=== PATIENT | male | born 1935 | race Caucasian/White ===

== ENCOUNTER → 2017-03-10 | Outpatient (REF) | payer MEDICARE ==
[~2017-03-10] MED LIST: /PANT40TA; /TAMS4CA; /WARF25TA; /WARF3TA; /WARF4TA; ACET65TA; ACTO45TA; ALOP5TAB; AMBI5TAB; ASPI81TA85; ATEN25TA; BISA10SU2; BISA5TA; CALC12502; COLA100C2; CORE6.25 PO; COUM1TAB; COUM2.5T17 PO; COUMADIN; DARB60SYR; DIGO0.126; DIGO0.257; FERR324T5; FERR325T; FISH13602; FLEC50TA2; GLUC1000; GLUC1000 PO; GLUC500T; HEPA100I16 IV; INSULANT; LEVAMIR; LEVE1INJ5 SC; LISI-538 PO; LISI20TA5; MAALSUS8 PO; META0.52 PO; METAMUCIL; MILKSUS; MIRA3350 PO; MIRALEX; MULTIVIT; NAFC2VLAD IV; NAFCILLIN; NEXI20CA; NOVOINJ3; NOVOLOG100 MG/ML; NUCY50TA6 PO; OMEGA 3; PRESCAP PO; PRIN10TA; PROS5TAB; RIFA300C3; RIFA300C3 PO; SALI0.9I2 IV; SENN8.6T14; SENO8.6T5; SIMV20TA2 PO; SODIUM CHLORIDE 0.9%; STARLIX; TENO25TA; THERGRAN; TIGA100I; TRAM50TA2; TUMS500C PO; TYLE650T30 PO; ULTR100T6 PO; ULTR200T; ULTR50TA8 PO; VICO5TAB; WARFARIN; XARE10TA PO; ZOCO20TA; ZOFR20TA PO; [UNRECOGNIZED DRUG - OTHER]; [UNRECOGNIZED DRUG - OTHER]; [UNRECOGNIZED DRUG - OTHER]; levemir; metamucil; mylanta; mylicon; omega; starlix; vancomycin hcl
== END ==
LOC: M SFHCLERA 11:49
PROVIDERS: ATTEND Dermatology
DX: C44.599 Other specified malignant neoplasm of skin of other part of trunk (principal); D23.5 Other benign neoplasm of skin of trunk; L57.0 Actinic keratosis
CPT/HCPCS: 11100; 11101; 88305; G0463

== ENCOUNTER → 2017-04-07 | Outpatient (REF) | payer MEDICARE | LOC: M SFHCLERA 11:39 | PROVIDERS: ATTEND Dermatology | DX: D23.61 Other benign neoplasm of skin of right upper limb, including shoulder (principal) ==

== ENCOUNTER → 2018-02-07 | Outpatient (REF) | payer MEDICARE | LOC: M SFHCLERA 10:39 | DX: C44.329 Squamous cell carcinoma of skin of other parts of face (principal); C44.529 Squamous cell carcinoma of skin of other part of trunk; C44.622 Squamous cell carcinoma of skin of right upper limb, including shoulder; D48.7 Neoplasm of uncertain behavior of other specified sites | CPT/HCPCS: 88305 ==

== ENCOUNTER 2018-05-05 16:02 | Inpatient (IN) | payer MEDICARE ==
[~2018-05-05 16:02] MED LIST changes: -/PANT40TA; -/TAMS4CA; -/WARF25TA; -/WARF3TA; -/WARF4TA; -ACET65TA; -ACTO45TA; -ALOP5TAB; -AMBI5TAB; -ASPI81TA85; -ATEN25TA; -BISA10SU2; -BISA5TA; -CALC12502; -COLA100C2; -CORE6.25 PO; -COUM1TAB; -COUM2.5T17 PO; -COUMADIN; -DARB60SYR; +DEXTROSE 50% 50 ML SYRINGE IV; -DIGO0.126; -DIGO0.257; -FERR324T5; -FERR325T; -FISH13602; -FLEC50TA2; -GLUC1000; -GLUC1000 PO; -GLUC500T; +GLUCAGON FOR INJ 1 MG VIAL (J1610) SC; +GLUCOSE 4 GM CHEW TABLET PO; -HEPA100I16 IV; -INSULANT; -LEVAMIR; -LEVE1INJ5 SC; -LISI-538 PO; -LISI20TA5; -MAALSUS8 PO; -META0.52 PO; -METAMUCIL; -MILKSUS; -MIRA3350 PO; -MIRALEX; -MULTIVIT; -NAFC2VLAD IV; -NAFCILLIN; -NEXI20CA; -NOVOINJ3; -NOVOLOG100 MG/ML; -NUCY50TA6 PO; -OMEGA 3; -PRESCAP PO; -PRIN10TA; -PROS5TAB; -RIFA300C3; -RIFA300C3 PO; -SALI0.9I2 IV; -SENN8.6T14; -SENO8.6T5; -SIMV20TA2 PO; -SODIUM CHLORIDE 0.9%; -STARLIX; -TENO25TA; -THERGRAN; -TIGA100I; -TRAM50TA2; -TUMS500C PO; -TYLE650T30 PO; -ULTR100T6 PO; -ULTR200T; -ULTR50TA8 PO; -VICO5TAB; -WARFARIN; -XARE10TA PO; -ZOCO20TA; -ZOFR20TA PO; -[UNRECOGNIZED DRUG - OTHER]; -[UNRECOGNIZED DRUG - OTHER]; -[UNRECOGNIZED DRUG - OTHER]; -levemir; -metamucil; -mylanta; -mylicon; -omega; -starlix; +traMADol 50 MG TAB PO; -vancomycin hcl
[2018-05-05] MEDS ORDERED: SIMETHICONE 80 MG CHEW TAB PO (16:15)
[2018-05-05] MEDS ORDERED: ONDANSETRON 4 MG TAB (S0181) PO (16:15)
[2018-05-05] MEDS ORDERED: MOM 30ML SUSPENSION UDC PO (16:15)
[2018-05-05] MEDS ORDERED: ONDANSETRON 4MG/2ML VIAL (J2405) IM (16:15)
[2018-05-05] MEDS ORDERED: BISACODYL 10 MG SUPP PR (16:15)
[2018-05-05] MEDS ORDERED: FLEET ENEMA PR (16:15)
[2018-05-05] MEDS ORDERED: BISACODYL 5 MG TAB PO (16:15)
[2018-05-05 16:59] LABS: BEDSIDE GLUCOSE 200 MG/DL (83-110)
[2018-05-05] MEDS: HumaLOG INSULIN (NovoLOG) PER UNIT SC ×2 (17:18→21:45)
[2018-05-05] MEDS ORDERED: PILL CRUSHER/CUTTER 1 EACH XX (18:00)
[2018-05-05] MEDS: NS 1,000 ML IV (18:10)
[2018-05-05 20:41] LABS: BEDSIDE GLUCOSE 240 MG/DL (83-110)
[2018-05-05] MEDS ORDERED: metFORMIN (GLUCOPHAGE) 1000 MG TABLET PO (21:00)
[2018-05-05] MEDS ORDERED: LEVEMIR (INSULIN DETEMIR) 1 UNITS/0.01ML SC (21:00)
[2018-05-05] MEDS ORDERED: LISINOPRIL 20 MG TAB PO (21:00)
[2018-05-05] MEDS: ATORVASTATIN 10 MG TAB PO (21:41)
[2018-05-05] MEDS: ACETAMINOPHEN 650MG ER TAB (TYLENOL ARTHRITIS) PO (21:41)
[2018-05-05] MEDS: APIXABAN 5 MG TAB (ELIQUIS) PO (21:42)
[2018-05-05] MEDS: OCUVITE 1 TAB PO (21:42)
[2018-05-05] MEDS: SENNA 8.6 MG TAB (SENOKOT) PO (21:42)
[2018-05-05] MEDS: POTASSIUM CHLORIDE 10 MEQ SR TABLET PO (21:43)
[2018-05-05] MEDS: LEVEMIR (INSULIN DETEMIR) 1 UNITS/0.01ML SC (21:44)
[2018-05-05] MEDS: CARVedilol 3.125 MG TAB PO (21:45)
[2018-05-05] MEDS: LISINOPRIL 10 MG TAB PO (21:45)
[2018-05-06] MEDS: ACETAMINOPHEN 650MG ER TAB (TYLENOL ARTHRITIS) PO ×3 (06:09→21:17)
[2018-05-06 06:45] LABS: BEDSIDE GLUCOSE 168 MG/DL (83-110)
[2018-05-06 07:30] LABS: BASO % 0.4 % (0.0-1.0); EOS # 0.4 10^3/uL (0.0-0.50); EOS % 3.5 % (0.0-3.0); HEMATOCRIT 44.5 % (42.0-52.0); HEMOGLOBIN 15.5 g/dl (13.5-17.5); IMMATURE GRANULOCYTE % 0.4 % (0-3.0); LYMPH # 1.1 10^3/uL (1.5-4.5); LYMPH % 10.4 % (24.0-44.0); MEAN CORPUSCULAR HGB CONC 34.8 g/dl (32.0-36.5); MEAN CORPUSCULAR VOLUME 86.2 fl (80.0-96.0); MONO # 0.8 10^3/uL (0.0-0.8); MONO % 7.5 % (0.0-5.0); NEUTROPHILS # 8.5 10^3/uL (1.8-7.7); NEUTROPHILS % 77.8 % (36.0-66.0); PLATELET COUNT, AUTOMATED 155 10^3/uL (150-450); RED BLOOD COUNT 5.16 10^6/uL (4.30-6.10); RED CELL DISTRIBUTION WIDTH 14.4 % (11.5-14.5); WHITE BLOOD COUNT 10.9 10^3/uL (4.0-10.0)
[2018-05-06] MEDS: HumaLOG INSULIN (NovoLOG) PER UNIT SC ×4 (07:30→21:00)
[2018-05-06 07:53] LABS: ESTIMATED AVERAGE GLUCOSE 169 MG/DL (60-110); HEMOGLOBIN A1c 7.5 %
[2018-05-06 07:57] LABS: ALBUMIN 2.6 GM/DL (3.2-5.2); ALBUMIN/GLOBULIN RATIO 0.63 (1.00-1.93); ALKALINE PHOSPHATASE 56 U/L (45-117); ALT/SGPT 18 U/L (12-78); ANION GAP 9 MEQ/L (8-16); AST/SGOT 14 U/L (7-37); BILIRUBIN,TOTAL 0.8 MG/DL (0.2-1.0); BLOOD UREA NITROGEN 10 MG/DL (7-18); CALCIUM LEVEL 8.3 MG/DL (8.8-10.2); CARBON DIOXIDE LEVEL 25 MEQ/L (21-32); CHLORIDE LEVEL 107 MEQ/L (98-107); CREATININE FOR GFR 0.78 MG/DL (0.70-1.30); GLOMERULAR FILTRATION RATE > 60.0 (>35); GLUCOSE, FASTING 160 MG/DL (70-100); POTASSIUM SERUM 3.5 MEQ/L (3.5-5.1); SODIUM LEVEL 141 MEQ/L (136-145); TOTAL PROTEIN 6.7 GM/DL (6.4-8.2)
[2018-05-06] MEDS: MIRALAX *UNIT DOSE* 17GM PACKET PO (08:26)
[2018-05-06] MEDS: OCUVITE 1 TAB PO ×2 (08:26→21:17)
[2018-05-06] MEDS: metFORMIN (GLUCOPHAGE) 500 MG TAB PO ×2 (08:27→18:39)
[2018-05-06] MEDS: POTASSIUM CHLORIDE 10 MEQ SR TABLET PO (08:28)
[2018-05-06] MEDS: APIXABAN 5 MG TAB (ELIQUIS) PO ×2 (08:28→21:18)
[2018-05-06] MEDS: CARVedilol 3.125 MG TAB PO ×2 (08:41→21:18)
[2018-05-06] MEDS: LISINOPRIL 10 MG TAB PO ×2 (08:42→21:18)
[2018-05-06] MEDS ORDERED: INDAPAMIDE 1.25MG TABLET PO (09:00)
[2018-05-06 12:14] LABS: BEDSIDE GLUCOSE 266 MG/DL (83-110)
[2018-05-06] MEDS: FLUoxetine 20 MG CAP PO (14:25)
[2018-05-06] MEDS: NS 1,000 ML IV (14:25)
[2018-05-06 16:56] LABS: BEDSIDE GLUCOSE 227 MG/DL (83-110)
[2018-05-06 21:08] LABS: BEDSIDE GLUCOSE 218 MG/DL (83-110)
[2018-05-06] MEDS: LEVEMIR (INSULIN DETEMIR) 1 UNITS/0.01ML SC (21:17)
[2018-05-06] MEDS: POTASSIUM CHL PWD 20 MEQ PACKET PO (21:17)
[2018-05-06] MEDS: ATORVASTATIN 10 MG TAB PO (21:18)
[2018-05-06] MEDS: SENNA 8.6 MG TAB (SENOKOT) PO (21:18)
[2018-05-07] MEDS: ACETAMINOPHEN 650MG ER TAB (TYLENOL ARTHRITIS) PO ×3 (05:57→21:20)
[2018-05-07 07:13] LABS: BASO % 0.4 % (0.0-1.0); EOS # 0.4 10^3/uL (0.0-0.50); EOS % 3.7 % (0.0-3.0); HEMATOCRIT 44.9 % (42.0-52.0); HEMOGLOBIN 15.7 g/dl (13.5-17.5); IMMATURE GRANULOCYTE % 0.3 % (0-3.0); LYMPH # 1.2 10^3/uL (1.5-4.5); LYMPH % 12.1 % (24.0-44.0); MEAN CORPUSCULAR HEMOGLOBIN 30.3 pg (27.0-33.0); MEAN CORPUSCULAR VOLUME 86.7 fl (80.0-96.0); MONO # 0.8 10^3/uL (0.0-0.8); MONO % 7.8 % (0.0-5.0); NEUTROPHILS # 7.8 10^3/uL (1.8-7.7); NEUTROPHILS % 75.7 % (36.0-66.0); PLATELET COUNT, AUTOMATED 169 10^3/uL (150-450); RED BLOOD COUNT 5.18 10^6/uL (4.30-6.10); RED CELL DISTRIBUTION WIDTH 14.6 % (11.5-14.5); WHITE BLOOD COUNT 10.3 10^3/uL (4.0-10.0)
[2018-05-07] MEDS: HumaLOG INSULIN (NovoLOG) PER UNIT SC ×4 (07:30→21:00)
[2018-05-07 07:45] LABS: ANION GAP 7 MEQ/L (8-16); BLOOD UREA NITROGEN 13 MG/DL (7-18); CALCIUM LEVEL 8.2 MG/DL (8.8-10.2); CARBON DIOXIDE LEVEL 26 MEQ/L (21-32); CHLORIDE LEVEL 107 MEQ/L (98-107); CREATININE FOR GFR 0.77 MG/DL (0.70-1.30); GLOMERULAR FILTRATION RATE > 60.0 (>35); GLUCOSE, FASTING 126 MG/DL (70-100); POTASSIUM SERUM 3.6 MEQ/L (3.5-5.1); SODIUM LEVEL 140 MEQ/L (136-145)
[2018-05-07] MEDS: MIRALAX *UNIT DOSE* 17GM PACKET PO (09:00)
[2018-05-07] MEDS: POTASSIUM CHL PWD 20 MEQ PACKET PO ×2 (09:13→21:19)
[2018-05-07] MEDS: APIXABAN 5 MG TAB (ELIQUIS) PO ×2 (09:13→21:20)
[2018-05-07] MEDS: FLUoxetine 20 MG CAP PO (09:13)
[2018-05-07] MEDS: OCUVITE 1 TAB PO ×2 (09:13→21:20)
[2018-05-07] MEDS: metFORMIN (GLUCOPHAGE) 500 MG TAB PO ×2 (09:14→17:39)
[2018-05-07] MEDS: CARVedilol 3.125 MG TAB PO ×2 (09:14→21:20)
[2018-05-07] MEDS: LISINOPRIL 10 MG TAB PO ×2 (09:14→21:20)
[2018-05-07] MEDS: GLIMEPIRIDE 2 MG TAB PO (09:15)
[2018-05-07 11:53] LABS: BEDSIDE GLUCOSE 211 MG/DL (83-110)
[2018-05-07 16:52] LABS: BEDSIDE GLUCOSE 124 MG/DL (83-110)
[2018-05-07 20:53] LABS: BEDSIDE GLUCOSE 129 MG/DL (83-110)
[2018-05-07] MEDS: SENNA 8.6 MG TAB (SENOKOT) PO (21:20)
[2018-05-07] MEDS: ATORVASTATIN 10 MG TAB PO (21:20)
[2018-05-08] MEDS: ACETAMINOPHEN 650MG ER TAB (TYLENOL ARTHRITIS) PO ×3 (05:49→20:47)
[2018-05-08 06:08] LABS: BEDSIDE GLUCOSE 213 MG/DL (83-110)
[2018-05-08 07:14] LABS: BASO % 0.4 % (0.0-1.0); EOS # 0.4 10^3/uL (0.0-0.50); EOS % 3.9 % (0.0-3.0); HEMATOCRIT 47.9 % (42.0-52.0); HEMOGLOBIN 16.6 g/dl (13.5-17.5); IMMATURE GRANULOCYTE % 0.3 % (0-3.0); LYMPH # 1.4 10^3/uL (1.5-4.5); LYMPH % 13.8 % (24.0-44.0); MEAN CORPUSCULAR HEMOGLOBIN 30.4 pg (27.0-33.0); MEAN CORPUSCULAR HGB CONC 34.7 g/dl (32.0-36.5); MEAN CORPUSCULAR VOLUME 87.7 fl (80.0-96.0); MONO # 0.8 10^3/uL (0.0-0.8); NEUTROPHILS # 7.3 10^3/uL (1.8-7.7); NEUTROPHILS % 73.6 % (36.0-66.0); PLATELET COUNT, AUTOMATED 179 10^3/uL (150-450); RED BLOOD COUNT 5.46 10^6/uL (4.30-6.10); RED CELL DISTRIBUTION WIDTH 14.4 % (11.5-14.5); WHITE BLOOD COUNT 9.9 10^3/uL (4.0-10.0)
[2018-05-08 07:28] LABS: ANION GAP 9 MEQ/L (8-16); BLOOD UREA NITROGEN 15 MG/DL (7-18); CALCIUM LEVEL 8.7 MG/DL (8.8-10.2); CARBON DIOXIDE LEVEL 26 MEQ/L (21-32); CHLORIDE LEVEL 103 MEQ/L (98-107); CREATININE FOR GFR 0.84 MG/DL (0.70-1.30); GLOMERULAR FILTRATION RATE > 60.0 (>35); GLUCOSE, FASTING 188 MG/DL (70-100); POTASSIUM SERUM 3.8 MEQ/L (3.5-5.1); SODIUM LEVEL 138 MEQ/L (136-145)
[2018-05-08] MEDS: POTASSIUM CHL PWD 20 MEQ PACKET PO ×2 (09:00→20:46)
[2018-05-08] MEDS: MIRALAX *UNIT DOSE* 17GM PACKET PO (09:00)
[2018-05-08] MEDS: HumaLOG INSULIN (NovoLOG) PER UNIT SC ×4 (09:14→20:43)
[2018-05-08] MEDS: OCUVITE 1 TAB PO ×2 (09:15→20:46)
[2018-05-08] MEDS: CARVedilol 3.125 MG TAB PO ×2 (09:15→20:48)
[2018-05-08] MEDS: GLIMEPIRIDE 2 MG TAB PO (09:15)
[2018-05-08] MEDS: metFORMIN (GLUCOPHAGE) 500 MG TAB PO ×2 (09:15→18:05)
[2018-05-08] MEDS: LISINOPRIL 10 MG TAB PO ×2 (09:16→20:47)
[2018-05-08] MEDS: APIXABAN 5 MG TAB (ELIQUIS) PO ×2 (09:16→20:46)
[2018-05-08] MEDS: FLUoxetine 20 MG CAP PO (09:16)
[2018-05-08 11:26] LABS: BEDSIDE GLUCOSE 311 MG/DL (83-110)
[2018-05-08 16:42] LABS: BEDSIDE GLUCOSE 171 MG/DL (83-110)
[2018-05-08 20:23] LABS: BEDSIDE GLUCOSE 197 MG/DL (83-110)
[2018-05-08] MEDS: SENNA 8.6 MG TAB (SENOKOT) PO (20:42)
[2018-05-08] MEDS: ATORVASTATIN 10 MG TAB PO (20:46)
[2018-05-09] MEDS: ACETAMINOPHEN 650MG ER TAB (TYLENOL ARTHRITIS) PO ×3 (06:55→21:21)
[2018-05-09 07:01] LABS: BASO % 0.4 % (0.0-1.0); EOS # 0.4 10^3/uL (0.0-0.50); EOS % 3.4 % (0.0-3.0); HEMATOCRIT 49.1 % (42.0-52.0); HEMOGLOBIN 16.9 g/dl (13.5-17.5); IMMATURE GRANULOCYTE % 0.6 % (0-3.0); LYMPH # 1.3 10^3/uL (1.5-4.5); LYMPH % 12.1 % (24.0-44.0); MEAN CORPUSCULAR HEMOGLOBIN 30.1 pg (27.0-33.0); MEAN CORPUSCULAR HGB CONC 34.4 g/dl (32.0-36.5); MEAN CORPUSCULAR VOLUME 87.4 fl (80.0-96.0); MONO # 0.9 10^3/uL (0.0-0.8); MONO % 8.2 % (0.0-5.0); NEUTROPHILS # 8.2 10^3/uL (1.8-7.7); NEUTROPHILS % 75.3 % (36.0-66.0); PLATELET COUNT, AUTOMATED 191 10^3/uL (150-450); RED BLOOD COUNT 5.62 10^6/uL (4.30-6.10); WHITE BLOOD COUNT 10.8 10^3/uL (4.0-10.0)
[2018-05-09 07:14] LABS: ANION GAP 5 MEQ/L (8-16); BLOOD UREA NITROGEN 14 MG/DL (7-18); CALCIUM LEVEL 8.8 MG/DL (8.8-10.2); CARBON DIOXIDE LEVEL 29 MEQ/L (21-32); CHLORIDE LEVEL 101 MEQ/L (98-107); CREATININE FOR GFR 0.83 MG/DL (0.70-1.30); GLOMERULAR FILTRATION RATE > 60.0 (>35); GLUCOSE, FASTING 185 MG/DL (70-100); POTASSIUM SERUM 3.8 MEQ/L (3.5-5.1); SODIUM LEVEL 135 MEQ/L (136-145)
[2018-05-09] MEDS: POTASSIUM CHL PWD 20 MEQ PACKET PO ×2 (08:06→21:21)
[2018-05-09] MEDS: GLIMEPIRIDE 2 MG TAB PO (08:07)
[2018-05-09] MEDS: APIXABAN 5 MG TAB (ELIQUIS) PO ×2 (08:07→21:21)
[2018-05-09] MEDS: CARVedilol 3.125 MG TAB PO ×2 (08:07→21:22)
[2018-05-09] MEDS: HumaLOG INSULIN (NovoLOG) PER UNIT SC ×4 (08:07→21:00)
[2018-05-09] MEDS: FLUoxetine 20 MG CAP PO (08:07)
[2018-05-09] MEDS: OCUVITE 1 TAB PO ×2 (08:08→21:21)
[2018-05-09] MEDS: LISINOPRIL 10 MG TAB PO ×2 (08:08→21:21)
[2018-05-09] MEDS: metFORMIN (GLUCOPHAGE) 500 MG TAB PO ×2 (08:08→17:57)
[2018-05-09] MEDS: MIRALAX *UNIT DOSE* 17GM PACKET PO (08:09)
[2018-05-09] MEDS: amLODIPine 5 MG TAB PO (08:09)
[2018-05-09 11:24] LABS: BEDSIDE GLUCOSE 252 MG/DL (83-110)
[2018-05-09 16:39] LABS: BEDSIDE GLUCOSE 108 MG/DL (83-110)
[2018-05-09 20:52] LABS: BEDSIDE GLUCOSE 156 MG/DL (83-110)
[2018-05-09] MEDS: SENNA 8.6 MG TAB (SENOKOT) PO (21:00)
[2018-05-09] MEDS: ATORVASTATIN 10 MG TAB PO (21:21)
[2018-05-10 05:40] LABS: BEDSIDE GLUCOSE 188 MG/DL (83-110)
[2018-05-10] MEDS: ACETAMINOPHEN 650MG ER TAB (TYLENOL ARTHRITIS) PO ×3 (05:45→20:28)
[2018-05-10 06:58] LABS: BASO # 0.1 10^3/uL (0.0-0.2); BASO % 0.5 % (0.0-1.0); EOS # 0.4 10^3/uL (0.0-0.50); HEMATOCRIT 50.9 % (42.0-52.0); HEMOGLOBIN 17.6 g/dl (13.5-17.5); IMMATURE GRANULOCYTE % 0.4 % (0-3.0); LYMPH # 1.4 10^3/uL (1.5-4.5); LYMPH % 11.5 % (24.0-44.0); MEAN CORPUSCULAR HGB CONC 34.6 g/dl (32.0-36.5); MEAN CORPUSCULAR VOLUME 86.7 fl (80.0-96.0); MONO % 7.8 % (0.0-5.0); NEUTROPHILS # 9.6 10^3/uL (1.8-7.7); NEUTROPHILS % 76.8 % (36.0-66.0); PLATELET COUNT, AUTOMATED 203 10^3/uL (150-450); RED BLOOD COUNT 5.87 10^6/uL (4.30-6.10); WHITE BLOOD COUNT 12.5 10^3/uL (4.0-10.0)
[2018-05-10 07:12] LABS: ANION GAP 9 MEQ/L (8-16); BLOOD UREA NITROGEN 17 MG/DL (7-18); CALCIUM LEVEL 8.9 MG/DL (8.8-10.2); CARBON DIOXIDE LEVEL 25 MEQ/L (21-32); CHLORIDE LEVEL 101 MEQ/L (98-107); CREATININE FOR GFR 0.88 MG/DL (0.70-1.30); GLOMERULAR FILTRATION RATE > 60.0 (>35); GLUCOSE, FASTING 194 MG/DL (70-100); SODIUM LEVEL 135 MEQ/L (136-145)
[2018-05-10] MEDS: LISINOPRIL 10 MG TAB PO ×2 (07:57→20:28)
[2018-05-10] MEDS: FLUoxetine 20 MG CAP PO (07:57)
[2018-05-10] MEDS: amLODIPine 5 MG TAB PO (07:57)
[2018-05-10] MEDS: HumaLOG INSULIN (NovoLOG) PER UNIT SC ×4 (07:57→21:00)
[2018-05-10] MEDS: POTASSIUM CHL PWD 20 MEQ PACKET PO ×2 (07:58→20:29)
[2018-05-10] MEDS: metFORMIN (GLUCOPHAGE) 500 MG TAB PO ×2 (07:58→17:40)
[2018-05-10] MEDS: GLIMEPIRIDE 2 MG TAB PO (07:58)
[2018-05-10] MEDS: CARVedilol 3.125 MG TAB PO ×2 (07:58→20:28)
[2018-05-10] MEDS: MIRALAX *UNIT DOSE* 17GM PACKET PO (07:58)
[2018-05-10] MEDS: APIXABAN 5 MG TAB (ELIQUIS) PO ×2 (07:58→20:29)
[2018-05-10] MEDS: OCUVITE 1 TAB PO ×2 (07:59→20:28)
[2018-05-10 11:40] LABS: BEDSIDE GLUCOSE 264 MG/DL (83-110)
[2018-05-10] MEDS: TAMSULOSIN 0.4 MG CAP PO (12:11)
[2018-05-10 16:44] LABS: BEDSIDE GLUCOSE 161 MG/DL (83-110)
[2018-05-10] MEDS: LEVEMIR (INSULIN DETEMIR) 1 UNITS/0.01ML SC (18:37)
[2018-05-10] MEDS: ATORVASTATIN 10 MG TAB PO (20:29)
[2018-05-10] MEDS: SENNA 8.6 MG TAB (SENOKOT) PO (20:29)
[2018-05-11] MEDS: ACETAMINOPHEN 650MG ER TAB (TYLENOL ARTHRITIS) PO ×3 (06:00→22:12)
[2018-05-11 06:34] LABS: BASO # 0.1 10^3/uL (0.0-0.2); BASO % 0.5 % (0.0-1.0); EOS # 0.5 10^3/uL (0.0-0.50); EOS % 4.8 % (0.0-3.0); HEMATOCRIT 47.2 % (42.0-52.0); HEMOGLOBIN 16.7 g/dl (13.5-17.5); IMMATURE GRANULOCYTE % 0.2 % (0-3.0); LYMPH # 1.2 10^3/uL (1.5-4.5); LYMPH % 11.3 % (24.0-44.0); MEAN CORPUSCULAR HEMOGLOBIN 30.3 pg (27.0-33.0); MEAN CORPUSCULAR HGB CONC 35.4 g/dl (32.0-36.5); MEAN CORPUSCULAR VOLUME 85.7 fl (80.0-96.0); MONO # 1.2 10^3/uL (0.0-0.8); MONO % 10.5 % (0.0-5.0); NEUTROPHILS % 72.7 % (36.0-66.0); PLATELET COUNT, AUTOMATED 211 10^3/uL (150-450); RED BLOOD COUNT 5.51 10^6/uL (4.30-6.10); RED CELL DISTRIBUTION WIDTH 14.1 % (11.5-14.5)
[2018-05-11 06:54] LABS: ANION GAP 11 MEQ/L (8-16); BLOOD UREA NITROGEN 19 MG/DL (7-18); CALCIUM LEVEL 9.1 MG/DL (8.8-10.2); CARBON DIOXIDE LEVEL 24 MEQ/L (21-32); CHLORIDE LEVEL 102 MEQ/L (98-107); CREATININE FOR GFR 0.93 MG/DL (0.70-1.30); GLOMERULAR FILTRATION RATE > 60.0 (>35); GLUCOSE, FASTING 125 MG/DL (70-100); POTASSIUM SERUM 3.9 MEQ/L (3.5-5.1); SODIUM LEVEL 137 MEQ/L (136-145)
[2018-05-11] MEDS: HumaLOG INSULIN (NovoLOG) PER UNIT SC ×4 (07:30→21:00)
[2018-05-11] MEDS: POTASSIUM CHL PWD 20 MEQ PACKET PO ×2 (08:28→22:12)
[2018-05-11] MEDS: LEVEMIR (INSULIN DETEMIR) 1 UNITS/0.01ML SC (08:29)
[2018-05-11] MEDS: OCUVITE 1 TAB PO ×2 (08:29→22:23)
[2018-05-11] MEDS: FLUoxetine 20 MG CAP PO (08:30)
[2018-05-11] MEDS: CARVedilol 3.125 MG TAB PO ×2 (08:30→22:14)
[2018-05-11] MEDS: TAMSULOSIN 0.4 MG CAP PO (08:31)
[2018-05-11] MEDS: amLODIPine 5 MG TAB PO (08:31)
[2018-05-11] MEDS: GLIMEPIRIDE 2 MG TAB PO (08:31)
[2018-05-11] MEDS: LISINOPRIL 10 MG TAB PO ×2 (08:31→22:14)
[2018-05-11] MEDS: metFORMIN (GLUCOPHAGE) 500 MG TAB PO ×2 (08:32→17:30)
[2018-05-11] MEDS: APIXABAN 5 MG TAB (ELIQUIS) PO ×2 (08:32→22:13)
[2018-05-11] MEDS: MIRALAX *UNIT DOSE* 17GM PACKET PO (09:00)
[2018-05-11 11:26] LABS: BEDSIDE GLUCOSE 289 MG/DL (83-110)
[2018-05-11 17:18] LABS: BEDSIDE GLUCOSE 141 MG/DL (83-110)
[2018-05-11 20:34] LABS: BEDSIDE GLUCOSE 156 MG/DL (83-110)
[2018-05-11] MEDS: SENNA 8.6 MG TAB (SENOKOT) PO (21:00)
[2018-05-11] MEDS: ATORVASTATIN 10 MG TAB PO (22:13)
[2018-05-12] MEDS: ACETAMINOPHEN 650MG ER TAB (TYLENOL ARTHRITIS) PO ×3 (05:51→21:44)
[2018-05-12 07:19] LABS: MEAN CORPUSCULAR HEMOGLOBIN 30.5 pg (27.0-33.0); MEAN CORPUSCULAR HGB CONC 34.7 g/dl (32.0-36.5); PLATELET COUNT, AUTOMATED 198 10^3/uL (150-450); RED BLOOD COUNT 5.57 10^6/uL (4.30-6.10); RED CELL DISTRIBUTION WIDTH 14.3 % (11.5-14.5); WHITE BLOOD COUNT 11.1 10^3/uL (4.0-10.0)
[2018-05-12] MEDS: HumaLOG INSULIN (NovoLOG) PER UNIT SC ×4 (07:30→21:00)
[2018-05-12 07:38] LABS: ALBUMIN 3.1 GM/DL (3.2-5.2); ALBUMIN/GLOBULIN RATIO 0.79 (1.00-1.93); ALKALINE PHOSPHATASE 71 U/L (45-117); ALT/SGPT 20 U/L (12-78); ANION GAP 11 MEQ/L (8-16); AST/SGOT 13 U/L (7-37); BILIRUBIN,TOTAL 0.6 MG/DL (0.2-1.0); BLOOD UREA NITROGEN 22 MG/DL (7-18); CALCIUM LEVEL 8.9 MG/DL (8.8-10.2); CARBON DIOXIDE LEVEL 23 MEQ/L (21-32); CHLORIDE LEVEL 102 MEQ/L (98-107); CREATININE FOR GFR 0.93 MG/DL (0.70-1.30); GLOMERULAR FILTRATION RATE > 60.0 (>35); GLUCOSE, FASTING 142 MG/DL (70-100); SODIUM LEVEL 136 MEQ/L (136-145)
[2018-05-12] MEDS: LISINOPRIL 10 MG TAB PO ×2 (08:24→21:00)
[2018-05-12] MEDS: amLODIPine 5 MG TAB PO (08:25)
[2018-05-12] MEDS: TAMSULOSIN 0.4 MG CAP PO (08:25)
[2018-05-12] MEDS: APIXABAN 5 MG TAB (ELIQUIS) PO ×2 (08:26→21:45)
[2018-05-12] MEDS: CARVedilol 3.125 MG TAB PO ×2 (08:26→21:45)
[2018-05-12] MEDS: GLIMEPIRIDE 2 MG TAB PO (08:26)
[2018-05-12] MEDS: FLUoxetine 20 MG CAP PO (08:26)
[2018-05-12] MEDS: OCUVITE 1 TAB PO ×2 (08:27→21:45)
[2018-05-12] MEDS: LEVEMIR (INSULIN DETEMIR) 1 UNITS/0.01ML SC (08:27)
[2018-05-12] MEDS: metFORMIN (GLUCOPHAGE) 500 MG TAB PO ×2 (08:27→18:39)
[2018-05-12] MEDS: POTASSIUM CHL PWD 20 MEQ PACKET PO ×2 (08:28→21:45)
[2018-05-12] MEDS: MIRALAX *UNIT DOSE* 17GM PACKET PO (08:28)
[2018-05-12 11:56] LABS: BEDSIDE GLUCOSE 305 MG/DL (83-110)
[2018-05-12 17:00] LABS: BEDSIDE GLUCOSE 101 MG/DL (83-110)
[2018-05-12 21:40] LABS: BEDSIDE GLUCOSE 83 MG/DL (83-110)
[2018-05-12] MEDS: SENNA 8.6 MG TAB (SENOKOT) PO (21:44)
[2018-05-12] MEDS: ATORVASTATIN 10 MG TAB PO (21:45)
[2018-05-13] MEDS: ACETAMINOPHEN 650MG ER TAB (TYLENOL ARTHRITIS) PO ×3 (05:57→21:40)
[2018-05-13 06:04] LABS: BEDSIDE GLUCOSE 138 MG/DL (83-110)
[2018-05-13] MEDS: HumaLOG INSULIN (NovoLOG) PER UNIT SC ×4 (07:30→21:00)
[2018-05-13] MEDS: POTASSIUM CHL PWD 20 MEQ PACKET PO ×2 (08:54→21:40)
[2018-05-13] MEDS: GLIMEPIRIDE 2 MG TAB PO (08:54)
[2018-05-13] MEDS: LISINOPRIL 10 MG TAB PO ×2 (08:55→21:00)
[2018-05-13] MEDS: FLUoxetine 20 MG CAP PO (08:55)
[2018-05-13] MEDS: metFORMIN (GLUCOPHAGE) 500 MG TAB PO ×2 (08:55→17:53)
[2018-05-13] MEDS: OCUVITE 1 TAB PO ×2 (08:56→21:40)
[2018-05-13] MEDS: LEVEMIR (INSULIN DETEMIR) 1 UNITS/0.01ML SC (08:56)
[2018-05-13] MEDS: CARVedilol 3.125 MG TAB PO ×2 (08:56→21:41)
[2018-05-13] MEDS: APIXABAN 5 MG TAB (ELIQUIS) PO ×2 (08:56→21:40)
[2018-05-13] MEDS: TAMSULOSIN 0.4 MG CAP PO (08:57)
[2018-05-13] MEDS: MIRALAX *UNIT DOSE* 17GM PACKET PO (08:57)
[2018-05-13] MEDS: amLODIPine 5 MG TAB PO (08:57)
[2018-05-13 11:49] LABS: BEDSIDE GLUCOSE 259 MG/DL (83-110)
[2018-05-13 17:00] LABS: BEDSIDE GLUCOSE 73 MG/DL (83-110)
[2018-05-13 19:51] LABS: BEDSIDE GLUCOSE 129 MG/DL (83-110)
[2018-05-13] MEDS: SENNA 8.6 MG TAB (SENOKOT) PO (21:00)
[2018-05-13] MEDS: ATORVASTATIN 10 MG TAB PO (21:41)
[2018-05-14] MEDS: ACETAMINOPHEN 650MG ER TAB (TYLENOL ARTHRITIS) PO ×3 (06:18→21:41)
[2018-05-14 07:08] LABS: BEDSIDE GLUCOSE 153 MG/DL (83-110)
[2018-05-14] MEDS: HumaLOG INSULIN (NovoLOG) PER UNIT SC ×4 (07:30→21:00)
[2018-05-14] MEDS: LEVEMIR (INSULIN DETEMIR) 1 UNITS/0.01ML SC (08:42)
[2018-05-14] MEDS: metFORMIN (GLUCOPHAGE) 500 MG TAB PO ×2 (08:43→17:18)
[2018-05-14] MEDS: FLUoxetine 20 MG CAP PO (08:43)
[2018-05-14] MEDS: OCUVITE 1 TAB PO ×2 (08:43→21:41)
[2018-05-14] MEDS: CARVedilol 3.125 MG TAB PO ×2 (08:43→21:43)
[2018-05-14] MEDS: TAMSULOSIN 0.4 MG CAP PO (08:43)
[2018-05-14] MEDS: MIRALAX *UNIT DOSE* 17GM PACKET PO (08:44)
[2018-05-14] MEDS: amLODIPine 5 MG TAB PO (08:44)
[2018-05-14] MEDS: LISINOPRIL 10 MG TAB PO ×2 (08:44→21:42)
[2018-05-14] MEDS: APIXABAN 5 MG TAB (ELIQUIS) PO ×2 (08:45→21:43)
[2018-05-14] MEDS: POTASSIUM CHL PWD 20 MEQ PACKET PO ×2 (08:45→21:41)
[2018-05-14] MEDS: GLIMEPIRIDE 2 MG TAB PO (08:46)
[2018-05-14 11:45] LABS: BEDSIDE GLUCOSE 321 MG/DL (83-110)
[2018-05-14 16:42] LABS: BEDSIDE GLUCOSE 83 MG/DL (83-110)
[2018-05-14 20:06] LABS: BEDSIDE GLUCOSE 183 MG/DL (83-110)
[2018-05-14] MEDS: SENNA 8.6 MG TAB (SENOKOT) PO (21:00)
[2018-05-14] MEDS: ATORVASTATIN 10 MG TAB PO (21:41)
[2018-05-15] MEDS: ACETAMINOPHEN 650MG ER TAB (TYLENOL ARTHRITIS) PO ×3 (05:31→21:46)
[2018-05-15 06:30] LABS: BEDSIDE GLUCOSE 125 MG/DL (83-110)
[2018-05-15] MEDS: MIRALAX *UNIT DOSE* 17GM PACKET PO (08:15)
[2018-05-15] MEDS: POTASSIUM CHL PWD 20 MEQ PACKET PO ×2 (08:16→21:46)
[2018-05-15] MEDS: GLIMEPIRIDE 2 MG TAB PO (08:17)
[2018-05-15] MEDS: LEVEMIR (INSULIN DETEMIR) 1 UNITS/0.01ML SC (08:17)
[2018-05-15] MEDS: FLUoxetine 20 MG CAP PO (08:17)
[2018-05-15] MEDS: APIXABAN 5 MG TAB (ELIQUIS) PO ×2 (08:18→21:46)
[2018-05-15] MEDS: amLODIPine 5 MG TAB PO (08:18)
[2018-05-15] MEDS: OCUVITE 1 TAB PO ×2 (08:18→21:46)
[2018-05-15] MEDS: CARVedilol 3.125 MG TAB PO ×2 (08:18→21:45)
[2018-05-15] MEDS: metFORMIN (GLUCOPHAGE) 500 MG TAB PO ×2 (08:19→17:35)
[2018-05-15] MEDS: TAMSULOSIN 0.4 MG CAP PO (08:19)
[2018-05-15] MEDS: LISINOPRIL 10 MG TAB PO ×2 (08:19→21:00)
[2018-05-15] MEDS: HumaLOG INSULIN (NovoLOG) PER UNIT SC ×4 (08:20→21:00)
[2018-05-15 12:13] LABS: BEDSIDE GLUCOSE 183 MG/DL (83-110)
[2018-05-15 16:38] LABS: BEDSIDE GLUCOSE 95 MG/DL (83-110)
[2018-05-15 20:46] LABS: BEDSIDE GLUCOSE 92 MG/DL (83-110)
[2018-05-15] MEDS: SENNA 8.6 MG TAB (SENOKOT) PO (21:00)
[2018-05-15] MEDS: ATORVASTATIN 10 MG TAB PO (21:46)
[2018-05-16] MEDS: ACETAMINOPHEN 650MG ER TAB (TYLENOL ARTHRITIS) PO ×3 (05:38→21:18)
[2018-05-16 05:40] LABS: BEDSIDE GLUCOSE 114 MG/DL (83-110)
[2018-05-16] MEDS: HumaLOG INSULIN (NovoLOG) PER UNIT SC ×4 (07:30→21:00)
[2018-05-16] MEDS: MIRALAX *UNIT DOSE* 17GM PACKET PO (08:08)
[2018-05-16] MEDS: LISINOPRIL 10 MG TAB PO ×2 (08:08→21:00)
[2018-05-16] MEDS: LEVEMIR (INSULIN DETEMIR) 1 UNITS/0.01ML SC (08:44)
[2018-05-16] MEDS: OCUVITE 1 TAB PO ×2 (08:45→21:18)
[2018-05-16] MEDS: APIXABAN 5 MG TAB (ELIQUIS) PO ×2 (08:45→21:17)
[2018-05-16] MEDS: TAMSULOSIN 0.4 MG CAP PO (08:45)
[2018-05-16] MEDS: POTASSIUM CHL PWD 20 MEQ PACKET PO ×2 (08:45→21:17)
[2018-05-16] MEDS: GLIMEPIRIDE 2 MG TAB PO (08:46)
[2018-05-16] MEDS: amLODIPine 5 MG TAB PO (08:46)
[2018-05-16] MEDS: metFORMIN (GLUCOPHAGE) 500 MG TAB PO ×2 (08:46→19:02)
[2018-05-16] MEDS: CARVedilol 3.125 MG TAB PO ×2 (08:46→21:18)
[2018-05-16 08:57] LABS: BASO % 0.3 % (0.0-1.0); EOS # 0.4 10^3/uL (0.0-0.50); EOS % 2.8 % (0.0-3.0); IMMATURE GRANULOCYTE # 0.1 10^3/uL (0-0); IMMATURE GRANULOCYTE % 0.4 % (0-3.0); LYMPH # 1.7 10^3/uL (1.5-4.5); LYMPH % 13.5 % (24.0-44.0); MONO # 0.7 10^3/uL (0.0-0.8); MONO % 5.6 % (0.0-5.0); NEUTROPHILS # 9.8 10^3/uL (1.8-7.7); NEUTROPHILS % 77.4 % (36.0-66.0); WHITE BLOOD COUNT 12.7 10^3/uL (4.0-10.0)
[2018-05-16] MEDS: FLUoxetine 20 MG CAP PO (09:37)
[2018-05-16 11:35] LABS: BEDSIDE GLUCOSE 246 MG/DL (83-110)
[2018-05-16 17:11] LABS: BEDSIDE GLUCOSE 61 MG/DL (83-110)
[2018-05-16 17:13] LABS: KETONE, URINE AUTO RFX NEGATIVE (NEGATIVE); LEUKOCYTE ESTERASE UR AUTO RFX 3+ (NEGATIVE); NITRITE, URINE AUTO RFX POSITIVE (NEGATIVE); RBC, URINE AUTO RFX TNTC /HPF (0-3); SPECIFIC GRAVITY UR AUTO RFX 1.016 (1.002-1.035); SQUAM EPITHELIAL CELL UR AURFX 1 /HPF (0-6); WBC, URINE AUTO RFX TNTC /HPF (0-3)
[2018-05-16 18:34] LABS: BEDSIDE GLUCOSE 138 MG/DL (83-110)
[2018-05-16 20:35] LABS: BEDSIDE GLUCOSE 140 MG/DL (83-110)
[2018-05-16] MEDS: ATORVASTATIN 10 MG TAB PO (21:17)
[2018-05-16] MEDS: SENNA 8.6 MG TAB (SENOKOT) PO (21:18)
[2018-05-17] MEDS: ACETAMINOPHEN 650MG ER TAB (TYLENOL ARTHRITIS) PO ×3 (05:24→22:12)
[2018-05-17 06:55] LABS: BEDSIDE GLUCOSE 136 MG/DL (83-110)
[2018-05-17] MEDS: HumaLOG INSULIN (NovoLOG) PER UNIT SC ×4 (07:30→20:12)
[2018-05-17 08:07] LABS: BASO # 0.1 10^3/uL (0.0-0.2); BASO % 0.3 % (0.0-1.0); EOS # 0.2 10^3/uL (0.0-0.50); EOS % 1.2 % (0.0-3.0); IMMATURE GRANULOCYTE # 0.1 10^3/uL (0-0); IMMATURE GRANULOCYTE % 0.3 % (0-3.0); LYMPH # 1.4 10^3/uL (1.5-4.5); LYMPH % 6.6 % (24.0-44.0); MONO # 1.1 10^3/uL (0.0-0.8); MONO % 5.3 % (0.0-5.0); NEUTROPHILS % 86.3 % (36.0-66.0); WHITE BLOOD COUNT 20.8 10^3/uL (4.0-10.0)
[2018-05-17 08:36] LABS: ANION GAP 12 MEQ/L (8-16); BLOOD UREA NITROGEN 17 MG/DL (7-18); CALCIUM LEVEL 8.7 MG/DL (8.8-10.2); CARBON DIOXIDE LEVEL 22 MEQ/L (21-32); CHLORIDE LEVEL 100 MEQ/L (98-107); GLOMERULAR FILTRATION RATE > 60.0 (>35); GLUCOSE, FASTING 157 MG/DL (70-100); POTASSIUM SERUM 4.4 MEQ/L (3.5-5.1); SODIUM LEVEL 134 MEQ/L (136-145)
[2018-05-17] MEDS: POTASSIUM CHL PWD 20 MEQ PACKET PO ×2 (08:46→20:11)
[2018-05-17] MEDS: GLIMEPIRIDE 2 MG TAB PO (08:46)
[2018-05-17] MEDS: metFORMIN (GLUCOPHAGE) 500 MG TAB PO ×2 (08:46→17:02)
[2018-05-17] MEDS: OCUVITE 1 TAB PO ×2 (08:46→20:12)
[2018-05-17] MEDS: APIXABAN 5 MG TAB (ELIQUIS) PO ×2 (08:46→20:11)
[2018-05-17] MEDS: CARVedilol 3.125 MG TAB PO ×2 (08:47→20:12)
[2018-05-17] MEDS: amLODIPine 5 MG TAB PO (08:47)
[2018-05-17] MEDS: TAMSULOSIN 0.4 MG CAP PO (08:47)
[2018-05-17] MEDS: LISINOPRIL 10 MG TAB PO ×2 (08:47→20:15)
[2018-05-17] MEDS: MIRALAX *UNIT DOSE* 17GM PACKET PO (08:47)
[2018-05-17] MEDS: FLUoxetine 20 MG CAP PO (08:48)
[2018-05-17] MEDS: LEVEMIR (INSULIN DETEMIR) 1 UNITS/0.01ML SC (08:48)
[2018-05-17 11:40] LABS: BEDSIDE GLUCOSE 269 MG/DL (83-110)
[2018-05-17] MEDS: cefTRIAXone SOD 1 GM in D5W MINI-BAG PLUS 50 ML IV (12:24)
[2018-05-17 16:33] LABS: BEDSIDE GLUCOSE 145 MG/DL (83-110)
[2018-05-17 19:32] LABS: BEDSIDE GLUCOSE 203 MG/DL (83-110)
[2018-05-17] MEDS: SENNA 8.6 MG TAB (SENOKOT) PO (20:11)
[2018-05-17] MEDS: ATORVASTATIN 10 MG TAB PO (20:11)
[2018-05-18 05:17] LABS: BEDSIDE GLUCOSE 139 MG/DL (83-110)
[2018-05-18] MEDS: ACETAMINOPHEN 650MG ER TAB (TYLENOL ARTHRITIS) PO ×3 (05:21→21:36)
[2018-05-18 07:28] LABS: BASO # 0.1 10^3/uL (0.0-0.2); BASO % 0.4 % (0.0-1.0); EOS # 0.4 10^3/uL (0.0-0.50); EOS % 2.4 % (0.0-3.0); HEMATOCRIT 46.7 % (42.0-52.0); HEMOGLOBIN 16.1 g/dl (13.5-17.5); IMMATURE GRANULOCYTE % 0.5 % (0-3.0); LYMPH # 1.5 10^3/uL (1.5-4.5); LYMPH % 7.9 % (24.0-44.0); MEAN CORPUSCULAR HEMOGLOBIN 29.7 pg (27.0-33.0); MEAN CORPUSCULAR HGB CONC 34.5 g/dl (32.0-36.5); MONO % 5.3 % (0.0-5.0); NEUTROPHILS # 15.6 10^3/uL (1.8-7.7); NEUTROPHILS % 83.5 % (36.0-66.0); PLATELET COUNT, AUTOMATED 225 10^3/uL (150-450); RED BLOOD COUNT 5.43 10^6/uL (4.30-6.10); WHITE BLOOD COUNT 18.7 10^3/uL (4.0-10.0)
[2018-05-18] MEDS: HumaLOG INSULIN (NovoLOG) PER UNIT SC ×4 (07:30→21:00)
[2018-05-18 07:58] LABS: ANION GAP 6 MEQ/L (8-16); BLOOD UREA NITROGEN 18 MG/DL (7-18); CALCIUM LEVEL 8.7 MG/DL (8.8-10.2); CARBON DIOXIDE LEVEL 27 MEQ/L (21-32); CHLORIDE LEVEL 98 MEQ/L (98-107); GLOMERULAR FILTRATION RATE > 60.0 (>35); GLUCOSE, FASTING 150 MG/DL (70-100); SODIUM LEVEL 131 MEQ/L (136-145)
[2018-05-18] MEDS: POTASSIUM CHL PWD 20 MEQ PACKET PO ×2 (08:09→21:36)
[2018-05-18] MEDS: MIRALAX *UNIT DOSE* 17GM PACKET PO (08:10)
[2018-05-18] MEDS: LEVEMIR (INSULIN DETEMIR) 1 UNITS/0.01ML SC (08:10)
[2018-05-18] MEDS: CARVedilol 3.125 MG TAB PO ×2 (08:10→21:36)
[2018-05-18] MEDS: metFORMIN (GLUCOPHAGE) 500 MG TAB PO ×2 (08:11→17:11)
[2018-05-18] MEDS: FLUoxetine 20 MG CAP PO (08:11)
[2018-05-18] MEDS: TAMSULOSIN 0.4 MG CAP PO (08:11)
[2018-05-18] MEDS: GLIMEPIRIDE 2 MG TAB PO (08:11)
[2018-05-18] MEDS: APIXABAN 5 MG TAB (ELIQUIS) PO ×2 (08:11→21:36)
[2018-05-18] MEDS: OCUVITE 1 TAB PO ×2 (08:11→21:36)
[2018-05-18] MEDS: amLODIPine 5 MG TAB PO (08:11)
[2018-05-18] MEDS: LISINOPRIL 10 MG TAB PO ×2 (08:11→21:00)
[2018-05-18 11:52] LABS: BEDSIDE GLUCOSE 281 MG/DL (83-110)
[2018-05-18] MEDS: NS 1,000 ML IV (12:16)
[2018-05-18] MEDS: cefTRIAXone SOD 1 GM in D5W MINI-BAG PLUS 50 ML IV (12:17)
[2018-05-18 16:25] LABS: BEDSIDE GLUCOSE 111 MG/DL (83-110)
[2018-05-18 20:38] LABS: BEDSIDE GLUCOSE 191 MG/DL (83-110)
[2018-05-18] MEDS: SENNA 8.6 MG TAB (SENOKOT) PO (21:00)
[2018-05-18] MEDS: ATORVASTATIN 10 MG TAB PO (21:37)
[2018-05-19] MEDS: ACETAMINOPHEN 650MG ER TAB (TYLENOL ARTHRITIS) PO ×3 (05:08→21:08)
[2018-05-19 06:35] LABS: BEDSIDE GLUCOSE 139 MG/DL (83-110)
[2018-05-19] MEDS: HumaLOG INSULIN (NovoLOG) PER UNIT SC ×4 (07:30→21:00)
[2018-05-19 07:55] LABS: HEMATOCRIT 45.1 % (42.0-52.0); HEMOGLOBIN 15.7 g/dl (13.5-17.5); MEAN CORPUSCULAR HEMOGLOBIN 30.3 pg (27.0-33.0); MEAN CORPUSCULAR HGB CONC 34.8 g/dl (32.0-36.5); MEAN CORPUSCULAR VOLUME 86.9 fl (80.0-96.0); PLATELET COUNT, AUTOMATED 218 10^3/uL (150-450); RED BLOOD COUNT 5.19 10^6/uL (4.30-6.10)
[2018-05-19] MEDS: LEVEMIR (INSULIN DETEMIR) 1 UNITS/0.01ML SC (08:08)
[2018-05-19] MEDS: POTASSIUM CHL PWD 20 MEQ PACKET PO ×2 (08:09→21:00)
[2018-05-19] MEDS: OCUVITE 1 TAB PO ×2 (08:09→21:08)
[2018-05-19] MEDS: FLUoxetine 20 MG CAP PO (08:10)
[2018-05-19] MEDS: TAMSULOSIN 0.4 MG CAP PO (08:10)
[2018-05-19] MEDS: amLODIPine 5 MG TAB PO (08:10)
[2018-05-19] MEDS: metFORMIN (GLUCOPHAGE) 500 MG TAB PO ×2 (08:10→17:24)
[2018-05-19] MEDS: APIXABAN 5 MG TAB (ELIQUIS) PO ×2 (08:10→21:09)
[2018-05-19] MEDS: MIRALAX *UNIT DOSE* 17GM PACKET PO (08:10)
[2018-05-19] MEDS: GLIMEPIRIDE 2 MG TAB PO (08:10)
[2018-05-19] MEDS: CARVedilol 3.125 MG TAB PO ×2 (08:10→21:09)
[2018-05-19] MEDS: LISINOPRIL 10 MG TAB PO ×2 (08:12→21:00)
[2018-05-19 08:20] LABS: ALBUMIN 2.7 GM/DL (3.2-5.2); ALBUMIN/GLOBULIN RATIO 0.68 (1.00-1.93); ALKALINE PHOSPHATASE 71 U/L (45-117); ALT/SGPT 15 U/L (12-78); ANION GAP 9 MEQ/L (8-16); AST/SGOT 11 U/L (7-37); BILIRUBIN,TOTAL 0.5 MG/DL (0.2-1.0); BLOOD UREA NITROGEN 13 MG/DL (7-18); CALCIUM LEVEL 8.4 MG/DL (8.8-10.2); CARBON DIOXIDE LEVEL 24 MEQ/L (21-32); CHLORIDE LEVEL 101 MEQ/L (98-107); CREATININE FOR GFR 0.73 MG/DL (0.70-1.30); GLOMERULAR FILTRATION RATE > 60.0 (>35); GLUCOSE, FASTING 167 MG/DL (70-100); SODIUM LEVEL 134 MEQ/L (136-145); TOTAL PROTEIN 6.7 GM/DL (6.4-8.2)
[2018-05-19 11:26] LABS: BEDSIDE GLUCOSE 310 MG/DL (83-110)
[2018-05-19] MEDS: cefTRIAXone SOD 1 GM in D5W MINI-BAG PLUS 50 ML IV (12:00)
[2018-05-19] MEDS: NS 500 ML IV (13:00)
[2018-05-19 16:29] LABS: BEDSIDE GLUCOSE 110 MG/DL (83-110)
[2018-05-19 20:30] LABS: BEDSIDE GLUCOSE 134 MG/DL (83-110)
[2018-05-19] MEDS: SENNA 8.6 MG TAB (SENOKOT) PO (21:00)
[2018-05-19] MEDS: ATORVASTATIN 10 MG TAB PO (21:12)
[2018-05-20] MEDS: ACETAMINOPHEN 650MG ER TAB (TYLENOL ARTHRITIS) PO ×3 (05:52→21:44)
[2018-05-20 05:56] LABS: BEDSIDE GLUCOSE 169 MG/DL (83-110)
[2018-05-20 07:28] LABS: BASO # 0.1 10^3/uL (0.0-0.2); BASO % 0.4 % (0.0-1.0); EOS # 0.4 10^3/uL (0.0-0.50); EOS % 3.3 % (0.0-3.0); IMMATURE GRANULOCYTE % 0.3 % (0-3.0); LYMPH # 1.5 10^3/uL (1.5-4.5); LYMPH % 12.8 % (24.0-44.0); MONO # 0.8 10^3/uL (0.0-0.8); MONO % 6.7 % (0.0-5.0); NEUTROPHILS # 9.2 10^3/uL (1.8-7.7); NEUTROPHILS % 76.5 % (36.0-66.0)
[2018-05-20] MEDS: HumaLOG INSULIN (NovoLOG) PER UNIT SC ×4 (07:30→21:00)
[2018-05-20 07:46] LABS: ANION GAP 9 MEQ/L (8-16); BLOOD UREA NITROGEN 14 MG/DL (7-18); CALCIUM LEVEL 8.4 MG/DL (8.8-10.2); CARBON DIOXIDE LEVEL 22 MEQ/L (21-32); CHLORIDE LEVEL 100 MEQ/L (98-107); CREATININE FOR GFR 0.82 MG/DL (0.70-1.30); GLOMERULAR FILTRATION RATE > 60.0 (>35); GLUCOSE, FASTING 170 MG/DL (70-100); SODIUM LEVEL 131 MEQ/L (136-145)
[2018-05-20] MEDS: MIRALAX *UNIT DOSE* 17GM PACKET PO (09:00)
[2018-05-20] MEDS: LISINOPRIL 10 MG TAB PO ×2 (09:38→21:00)
[2018-05-20] MEDS: POTASSIUM CHL PWD 20 MEQ PACKET PO ×2 (09:38→21:44)
[2018-05-20] MEDS: OCUVITE 1 TAB PO ×2 (09:39→21:44)
[2018-05-20] MEDS: APIXABAN 5 MG TAB (ELIQUIS) PO ×2 (09:39→21:44)
[2018-05-20] MEDS: CARVedilol 3.125 MG TAB PO ×2 (09:39→21:44)
[2018-05-20] MEDS: TAMSULOSIN 0.4 MG CAP PO (09:39)
[2018-05-20] MEDS: metFORMIN (GLUCOPHAGE) 500 MG TAB PO ×2 (09:40→18:24)
[2018-05-20] MEDS: FLUoxetine 20 MG CAP PO (09:40)
[2018-05-20] MEDS: amLODIPine 5 MG TAB PO (09:40)
[2018-05-20] MEDS: GLIMEPIRIDE 2 MG TAB PO (09:41)
[2018-05-20] MEDS: LEVEMIR (INSULIN DETEMIR) 1 UNITS/0.01ML SC (09:41)
[2018-05-20 11:40] LABS: BEDSIDE GLUCOSE 335 MG/DL (83-110)
[2018-05-20 16:51] LABS: BEDSIDE GLUCOSE 118 MG/DL (83-110)
[2018-05-20] MEDS: CEFDINIR 300 MG CAP (OMNICEF) PO ×2 (18:23→21:00)
[2018-05-20 20:17] LABS: BEDSIDE GLUCOSE 161 MG/DL (83-110)
[2018-05-20] MEDS: SENNA 8.6 MG TAB (SENOKOT) PO (21:00)
[2018-05-20] MEDS: ATORVASTATIN 10 MG TAB PO (21:44)
[2018-05-21] MEDS: ACETAMINOPHEN 650MG ER TAB (TYLENOL ARTHRITIS) PO ×3 (05:09→21:31)
[2018-05-21 06:40] LABS: BEDSIDE GLUCOSE 182 MG/DL (83-110)
[2018-05-21] MEDS: HumaLOG INSULIN (NovoLOG) PER UNIT SC ×4 (07:30→20:30)
[2018-05-21 07:42] LABS: HEMATOCRIT 45.2 % (42.0-52.0); HEMOGLOBIN 15.7 g/dl (13.5-17.5); MEAN CORPUSCULAR HEMOGLOBIN 30.3 pg (27.0-33.0); MEAN CORPUSCULAR HGB CONC 34.7 g/dl (32.0-36.5); MEAN CORPUSCULAR VOLUME 87.1 fl (80.0-96.0); PLATELET COUNT, AUTOMATED 211 10^3/uL (150-450); RED BLOOD COUNT 5.19 10^6/uL (4.30-6.10); RED CELL DISTRIBUTION WIDTH 13.9 % (11.5-14.5); WHITE BLOOD COUNT 9.9 10^3/uL (4.0-10.0)
[2018-05-21 07:54] LABS: ALBUMIN 2.8 GM/DL (3.2-5.2); ALKALINE PHOSPHATASE 69 U/L (45-117); ALT/SGPT 15 U/L (12-78); ANION GAP 8 MEQ/L (8-16); AST/SGOT 9 U/L (7-37); BILIRUBIN,TOTAL 0.5 MG/DL (0.2-1.0); BLOOD UREA NITROGEN 15 MG/DL (7-18); CALCIUM LEVEL 8.5 MG/DL (8.8-10.2); CARBON DIOXIDE LEVEL 25 MEQ/L (21-32); CHLORIDE LEVEL 99 MEQ/L (98-107); CREATININE FOR GFR 0.66 MG/DL (0.70-1.30); GLOMERULAR FILTRATION RATE > 60.0 (>35); GLUCOSE, FASTING 159 MG/DL (70-100); POTASSIUM SERUM 4.1 MEQ/L (3.5-5.1); SODIUM LEVEL 132 MEQ/L (136-145); TOTAL PROTEIN 6.3 GM/DL (6.4-8.2)
[2018-05-21] MEDS: LISINOPRIL 10 MG TAB PO ×2 (09:00→20:30)
[2018-05-21] MEDS: MIRALAX *UNIT DOSE* 17GM PACKET PO (09:00)
[2018-05-21] MEDS: CEFDINIR 300 MG CAP (OMNICEF) PO ×2 (09:59→20:29)
[2018-05-21] MEDS: POTASSIUM CHL PWD 20 MEQ PACKET PO ×2 (10:00→20:29)
[2018-05-21] MEDS: APIXABAN 5 MG TAB (ELIQUIS) PO ×2 (10:00→20:29)
[2018-05-21] MEDS: FLUoxetine 20 MG CAP PO (10:00)
[2018-05-21] MEDS: OCUVITE 1 TAB PO ×2 (10:00→20:29)
[2018-05-21] MEDS: GLIMEPIRIDE 2 MG TAB PO (10:01)
[2018-05-21] MEDS: CARVedilol 3.125 MG TAB PO ×2 (10:01→20:30)
[2018-05-21] MEDS: amLODIPine 5 MG TAB PO (10:02)
[2018-05-21] MEDS: TAMSULOSIN 0.4 MG CAP PO (10:03)
[2018-05-21] MEDS: metFORMIN (GLUCOPHAGE) 500 MG TAB PO ×2 (10:03→17:34)
[2018-05-21] MEDS: LEVEMIR (INSULIN DETEMIR) 1 UNITS/0.01ML SC (10:03)
[2018-05-21 11:24] LABS: BEDSIDE GLUCOSE 298 MG/DL (83-110)
[2018-05-21 17:11] LABS: BEDSIDE GLUCOSE 69 MG/DL (83-110)
[2018-05-21] MEDS: SENNA 8.6 MG TAB (SENOKOT) PO (20:29)
[2018-05-21] MEDS: ATORVASTATIN 10 MG TAB PO (20:29)
[2018-05-21 20:30] LABS: BEDSIDE GLUCOSE 182 MG/DL (83-110)
[2018-05-22] MEDS: ACETAMINOPHEN 650MG ER TAB (TYLENOL ARTHRITIS) PO ×3 (05:26→21:12)
[2018-05-22 06:24] LABS: BEDSIDE GLUCOSE 184 MG/DL (83-110)
[2018-05-22] MEDS: HumaLOG INSULIN (NovoLOG) PER UNIT SC ×4 (07:16→21:00)
[2018-05-22 07:33] LABS: HEMATOCRIT 46.8 % (42.0-52.0); HEMOGLOBIN 16.5 g/dl (13.5-17.5); MEAN CORPUSCULAR HEMOGLOBIN 30.1 pg (27.0-33.0); MEAN CORPUSCULAR HGB CONC 35.3 g/dl (32.0-36.5); MEAN CORPUSCULAR VOLUME 85.2 fl (80.0-96.0); PLATELET COUNT, AUTOMATED 237 10^3/uL (150-450); RED BLOOD COUNT 5.49 10^6/uL (4.30-6.10); RED CELL DISTRIBUTION WIDTH 13.8 % (11.5-14.5); WHITE BLOOD COUNT 11.1 10^3/uL (4.0-10.0)
[2018-05-22 07:50] LABS: ALBUMIN 3.1 GM/DL (3.2-5.2); ALBUMIN/GLOBULIN RATIO 0.84 (1.00-1.93); ALKALINE PHOSPHATASE 75 U/L (45-117); ALT/SGPT 17 U/L (12-78); ANION GAP 10 MEQ/L (8-16); AST/SGOT 9 U/L (7-37); BILIRUBIN,TOTAL 0.6 MG/DL (0.2-1.0); BLOOD UREA NITROGEN 13 MG/DL (7-18); CALCIUM LEVEL 8.8 MG/DL (8.8-10.2); CARBON DIOXIDE LEVEL 25 MEQ/L (21-32); CHLORIDE LEVEL 96 MEQ/L (98-107); CREATININE FOR GFR 0.67 MG/DL (0.70-1.30); GLOMERULAR FILTRATION RATE > 60.0 (>35); GLUCOSE, FASTING 163 MG/DL (70-100); POTASSIUM SERUM 4.2 MEQ/L (3.5-5.1); SODIUM LEVEL 131 MEQ/L (136-145); TOTAL PROTEIN 6.8 GM/DL (6.4-8.2)
[2018-05-22] MEDS: LEVEMIR (INSULIN DETEMIR) 1 UNITS/0.01ML SC (08:37)
[2018-05-22] MEDS: metFORMIN (GLUCOPHAGE) 500 MG TAB PO ×2 (08:37→17:33)
[2018-05-22] MEDS: POTASSIUM CHL PWD 20 MEQ PACKET PO ×2 (08:37→21:12)
[2018-05-22] MEDS: FLUoxetine 20 MG CAP PO (08:38)
[2018-05-22] MEDS: APIXABAN 5 MG TAB (ELIQUIS) PO ×2 (08:38→21:13)
[2018-05-22] MEDS: amLODIPine 5 MG TAB PO (08:38)
[2018-05-22] MEDS: OCUVITE 1 TAB PO ×2 (08:38→21:12)
[2018-05-22] MEDS: CARVedilol 3.125 MG TAB PO ×3 (08:38→21:15)
[2018-05-22] MEDS: TAMSULOSIN 0.4 MG CAP PO (08:38)
[2018-05-22] MEDS: LISINOPRIL 10 MG TAB PO ×2 (08:38→21:00)
[2018-05-22] MEDS: CEFDINIR 300 MG CAP (OMNICEF) PO ×2 (08:38→21:12)
[2018-05-22] MEDS: GLIMEPIRIDE 2 MG TAB PO (08:38)
[2018-05-22] MEDS: MIRALAX *UNIT DOSE* 17GM PACKET PO (08:43)
[2018-05-22 11:13] LABS: BEDSIDE GLUCOSE 263 MG/DL (83-110)
[2018-05-22 14:19] LABS: C REACTIVE PROTEIN QUANTITATIV 0.94 MG/DL (0.00-0.30)
[2018-05-22 16:15] LABS: BEDSIDE GLUCOSE 148 MG/DL (83-110)
[2018-05-22] MEDS: SENNA 8.6 MG TAB (SENOKOT) PO (21:00)
[2018-05-22 21:09] LABS: BEDSIDE GLUCOSE 150 MG/DL (83-110)
[2018-05-22] MEDS: ATORVASTATIN 10 MG TAB PO (21:13)
[2018-05-23] MEDS: ACETAMINOPHEN 650MG ER TAB (TYLENOL ARTHRITIS) PO ×3 (05:51→21:35)
[2018-05-23 07:10] LABS: HEMATOCRIT 44.8 % (42.0-52.0); HEMOGLOBIN 15.8 g/dl (13.5-17.5); MEAN CORPUSCULAR HGB CONC 35.3 g/dl (32.0-36.5); MEAN CORPUSCULAR VOLUME 85.2 fl (80.0-96.0); PLATELET COUNT, AUTOMATED 222 10^3/uL (150-450); RED BLOOD COUNT 5.26 10^6/uL (4.30-6.10); RED CELL DISTRIBUTION WIDTH 14.1 % (11.5-14.5)
[2018-05-23 07:34] LABS: ALBUMIN 2.9 GM/DL (3.2-5.2); ALBUMIN/GLOBULIN RATIO 0.83 (1.00-1.93); ALKALINE PHOSPHATASE 72 U/L (45-117); ALT/SGPT 17 U/L (12-78); ANION GAP 11 MEQ/L (8-16); AST/SGOT 12 U/L (7-37); BILIRUBIN,TOTAL 0.6 MG/DL (0.2-1.0); BLOOD UREA NITROGEN 16 MG/DL (7-18); C REACTIVE PROTEIN QUANTITATIV 0.55 MG/DL (0.00-0.30); CALCIUM LEVEL 8.7 MG/DL (8.8-10.2); CARBON DIOXIDE LEVEL 24 MEQ/L (21-32); CHLORIDE LEVEL 99 MEQ/L (98-107); CREATININE FOR GFR 0.73 MG/DL (0.70-1.30); GLOMERULAR FILTRATION RATE > 60.0 (>35); GLUCOSE, FASTING 143 MG/DL (70-100); POTASSIUM SERUM 4.1 MEQ/L (3.5-5.1); SODIUM LEVEL 134 MEQ/L (136-145); TOTAL PROTEIN 6.4 GM/DL (6.4-8.2)
[2018-05-23] MEDS: FLUoxetine 20 MG CAP PO (09:22)
[2018-05-23] MEDS: HumaLOG INSULIN (NovoLOG) PER UNIT SC ×4 (09:22→21:00)
[2018-05-23] MEDS: OCUVITE 1 TAB PO ×2 (09:23→21:35)
[2018-05-23] MEDS: metFORMIN (GLUCOPHAGE) 500 MG TAB PO ×2 (09:23→18:04)
[2018-05-23] MEDS: GLIMEPIRIDE 2 MG TAB PO (09:23)
[2018-05-23] MEDS: APIXABAN 5 MG TAB (ELIQUIS) PO ×2 (09:23→21:36)
[2018-05-23] MEDS: CEFDINIR 300 MG CAP (OMNICEF) PO ×2 (09:23→21:36)
[2018-05-23] MEDS: POTASSIUM CHL PWD 20 MEQ PACKET PO ×2 (09:23→21:36)
[2018-05-23] MEDS: TAMSULOSIN 0.4 MG CAP PO (09:23)
[2018-05-23] MEDS: CARVedilol 3.125 MG TAB PO ×2 (09:24→21:36)
[2018-05-23] MEDS: amLODIPine 5 MG TAB PO (09:24)
[2018-05-23] MEDS: LISINOPRIL 10 MG TAB PO ×2 (09:24→21:36)
[2018-05-23] MEDS: LEVEMIR (INSULIN DETEMIR) 1 UNITS/0.01ML SC (09:25)
[2018-05-23] MEDS: MIRALAX *UNIT DOSE* 17GM PACKET PO (09:25)
[2018-05-23 11:48] LABS: BEDSIDE GLUCOSE 245 MG/DL (83-110)
[2018-05-23 17:06] LABS: BEDSIDE GLUCOSE 72 MG/DL (83-110)
[2018-05-23 21:19] LABS: BEDSIDE GLUCOSE 87 MG/DL (83-110)
[2018-05-23] MEDS: SENNA 8.6 MG TAB (SENOKOT) PO (21:36)
[2018-05-23] MEDS: ATORVASTATIN 10 MG TAB PO (21:36)
[2018-05-24] MEDS: ACETAMINOPHEN 650MG ER TAB (TYLENOL ARTHRITIS) PO ×3 (06:05→20:43)
[2018-05-24 07:06] LABS: HEMATOCRIT 44.8 % (42.0-52.0); HEMOGLOBIN 15.8 g/dl (13.5-17.5); MEAN CORPUSCULAR HGB CONC 35.3 g/dl (32.0-36.5); PLATELET COUNT, AUTOMATED 215 10^3/uL (150-450); RED BLOOD COUNT 5.27 10^6/uL (4.30-6.10); RED CELL DISTRIBUTION WIDTH 13.7 % (11.5-14.5); WHITE BLOOD COUNT 16.5 10^3/uL (4.0-10.0)
[2018-05-24 07:16] LABS: ALBUMIN/GLOBULIN RATIO 0.81 (1.00-1.93); ALKALINE PHOSPHATASE 68 U/L (45-117); ALT/SGPT 17 U/L (12-78); ANION GAP 9 MEQ/L (8-16); AST/SGOT 13 U/L (7-37); BILIRUBIN,TOTAL 0.6 MG/DL (0.2-1.0); BLOOD UREA NITROGEN 16 MG/DL (7-18); C REACTIVE PROTEIN QUANTITATIV 0.42 MG/DL (0.00-0.30); CALCIUM LEVEL 8.7 MG/DL (8.8-10.2); CARBON DIOXIDE LEVEL 24 MEQ/L (21-32); CHLORIDE LEVEL 99 MEQ/L (98-107); CREATININE FOR GFR 0.72 MG/DL (0.70-1.30); GLOMERULAR FILTRATION RATE > 60.0 (>35); GLUCOSE, FASTING 112 MG/DL (70-100); POTASSIUM SERUM 4.1 MEQ/L (3.5-5.1); SODIUM LEVEL 132 MEQ/L (136-145); TOTAL PROTEIN 6.7 GM/DL (6.4-8.2)
[2018-05-24] MEDS: metFORMIN (GLUCOPHAGE) 500 MG TAB PO ×2 (08:04→18:01)
[2018-05-24] MEDS: APIXABAN 5 MG TAB (ELIQUIS) PO ×2 (08:04→20:44)
[2018-05-24] MEDS: TAMSULOSIN 0.4 MG CAP PO (08:04)
[2018-05-24] MEDS: POTASSIUM CHL PWD 20 MEQ PACKET PO (08:04)
[2018-05-24] MEDS: FLUoxetine 20 MG CAP PO (08:04)
[2018-05-24] MEDS: GLIMEPIRIDE 2 MG TAB PO (08:05)
[2018-05-24] MEDS: amLODIPine 5 MG TAB PO (08:05)
[2018-05-24] MEDS: HumaLOG INSULIN (NovoLOG) PER UNIT SC ×4 (08:05→20:44)
[2018-05-24] MEDS: OCUVITE 1 TAB PO ×2 (08:05→20:42)
[2018-05-24] MEDS: CEFDINIR 300 MG CAP (OMNICEF) PO ×2 (08:05→20:44)
[2018-05-24] MEDS: CARVedilol 3.125 MG TAB PO ×2 (08:06→20:43)
[2018-05-24] MEDS: MIRALAX *UNIT DOSE* 17GM PACKET PO (08:06)
[2018-05-24] MEDS: LISINOPRIL 10 MG TAB PO ×2 (08:06→20:43)
[2018-05-24] MEDS: LEVEMIR (INSULIN DETEMIR) 1 UNITS/0.01ML SC (08:07)
[2018-05-24 11:23] LABS: BEDSIDE GLUCOSE 224 MG/DL (83-110)
[2018-05-24 13:17] LABS: REASON FOR REVIEW WBC/LEUKEMIA/BLAST; SLIDE REVIEW Report; SOURCE PERIPHERAL SMEAR
[2018-05-24 15:31] LABS: AMORPHOUS SEDIMENT RFX SMALL (NEGATIVE); KETONE, URINE AUTO RFX TRACE mg/dL (NEGATIVE); LEUKOCYTE ESTERASE UR AUTO RFX NEGATIVE (NEGATIVE); MUCUS, URINE RFX SMALL (NEGATIVE); NITRITE, URINE AUTO RFX NEGATIVE (NEGATIVE); RBC, URINE AUTO RFX 1 /HPF (0-3); SPECIFIC GRAVITY UR AUTO RFX 1.013 (1.002-1.035); SQUAM EPITHELIAL CELL UR AURFX 0 /HPF (0-6); WBC, URINE AUTO RFX 2 /HPF (0-3)
[2018-05-24 16:21] LABS: BEDSIDE GLUCOSE 126 MG/DL (83-110)
[2018-05-24 19:52] LABS: BEDSIDE GLUCOSE 171 MG/DL (83-110)
[2018-05-24] MEDS: LIDOCAINE 5% (LIDODERM) PATCH TD (20:42)
[2018-05-24] MEDS: SENNA 8.6 MG TAB (SENOKOT) PO (20:43)
[2018-05-24] MEDS: ATORVASTATIN 10 MG TAB PO (20:44)
[2018-05-24] MEDS: POTASSIUM CHLORIDE 10 MEQ SR TABLET PO (20:44)
[2018-05-25] MEDS: ACETAMINOPHEN 650MG ER TAB (TYLENOL ARTHRITIS) PO ×3 (05:34→21:20)
[2018-05-25] MEDS: HumaLOG INSULIN (NovoLOG) PER UNIT SC ×4 (07:30→21:00)
[2018-05-25 07:49] LABS: HEMATOCRIT 44.6 % (42.0-52.0); HEMOGLOBIN 15.4 g/dl (13.5-17.5); MEAN CORPUSCULAR HGB CONC 34.5 g/dl (32.0-36.5); MEAN CORPUSCULAR VOLUME 86.8 fl (80.0-96.0); PLATELET COUNT, AUTOMATED 218 10^3/uL (150-450); RED BLOOD COUNT 5.14 10^6/uL (4.30-6.10); RED CELL DISTRIBUTION WIDTH 14.1 % (11.5-14.5); WHITE BLOOD COUNT 14.3 10^3/uL (4.0-10.0)
[2018-05-25 07:55] LABS: ALBUMIN/GLOBULIN RATIO 0.81 (1.00-1.93); ALKALINE PHOSPHATASE 66 U/L (45-117); ALT/SGPT 15 U/L (12-78); ANION GAP 8 MEQ/L (8-16); AST/SGOT 9 U/L (7-37); BILIRUBIN,TOTAL 0.7 MG/DL (0.2-1.0); BLOOD UREA NITROGEN 17 MG/DL (7-18); C REACTIVE PROTEIN QUANTITATIV 6.87 MG/DL (0.00-0.30); CALCIUM LEVEL 8.8 MG/DL (8.8-10.2); CARBON DIOXIDE LEVEL 25 MEQ/L (21-32); CHLORIDE LEVEL 101 MEQ/L (98-107); CREATININE FOR GFR 0.81 MG/DL (0.70-1.30); GLOMERULAR FILTRATION RATE > 60.0 (>35); GLUCOSE, FASTING 140 MG/DL (70-100); POTASSIUM SERUM 4.2 MEQ/L (3.5-5.1); SODIUM LEVEL 134 MEQ/L (136-145); TOTAL PROTEIN 6.7 GM/DL (6.4-8.2)
[2018-05-25] MEDS: MIRALAX *UNIT DOSE* 17GM PACKET PO (09:00)
[2018-05-25] MEDS: **NOTE PATIENT COMMENT** MISC XX (09:00)
[2018-05-25] MEDS: POTASSIUM CHLORIDE 10 MEQ SR TABLET PO ×2 (09:12→21:20)
[2018-05-25] MEDS: CEFDINIR 300 MG CAP (OMNICEF) PO ×2 (09:12→21:19)
[2018-05-25] MEDS: LEVEMIR (INSULIN DETEMIR) 1 UNITS/0.01ML SC (09:12)
[2018-05-25] MEDS: CARVedilol 3.125 MG TAB PO ×2 (09:13→21:23)
[2018-05-25] MEDS: metFORMIN (GLUCOPHAGE) 500 MG TAB PO ×2 (09:13→17:57)
[2018-05-25] MEDS: GLIMEPIRIDE 2 MG TAB PO (09:13)
[2018-05-25] MEDS: OCUVITE 1 TAB PO ×2 (09:13→21:20)
[2018-05-25] MEDS: APIXABAN 5 MG TAB (ELIQUIS) PO ×2 (09:14→21:21)
[2018-05-25] MEDS: TAMSULOSIN 0.4 MG CAP PO (09:14)
[2018-05-25] MEDS: LISINOPRIL 10 MG TAB PO ×2 (09:14→21:00)
[2018-05-25] MEDS: FLUoxetine 20 MG CAP PO (09:14)
[2018-05-25 11:24] LABS: BEDSIDE GLUCOSE 286 MG/DL (83-110)
[2018-05-25] MEDS ORDERED: E-Z-PAQUE 96% w/w SUSP 176GM BTL As Ordered (11:30)
[2018-05-25] MEDS ORDERED: VARIBAR NECTAR 40% w/v 240ML SUSP BTL As Ordered (11:30)
[2018-05-25] MEDS ORDERED: VARIBAR PUDDING 40% w/v 230ML TUBE As Ordered (11:30)
[2018-05-25] MEDS ORDERED: BARIUM SULFATE 700 MG TABLET (E-Z-DISK) As Ordered (11:47)
[2018-05-25 16:50] LABS: BEDSIDE GLUCOSE 63 MG/DL (83-110)
[2018-05-25 17:40] LABS: BEDSIDE GLUCOSE 128 MG/DL (83-110)
[2018-05-25 21:08] LABS: BEDSIDE GLUCOSE 100 MG/DL (83-110)
[2018-05-25] MEDS: ATORVASTATIN 10 MG TAB PO (21:20)
[2018-05-25] MEDS: SENNA 8.6 MG TAB (SENOKOT) PO (21:20)
[2018-05-25] MEDS: LIDOCAINE 5% (LIDODERM) PATCH TD (21:36)
[2018-05-26] MEDS: ACETAMINOPHEN 650MG ER TAB (TYLENOL ARTHRITIS) PO ×3 (06:22→21:01)
[2018-05-26 06:43] LABS: BEDSIDE GLUCOSE 151 MG/DL (83-110)
[2018-05-26 07:04] LABS: HEMATOCRIT 44.9 % (42.0-52.0); HEMOGLOBIN 15.6 g/dl (13.5-17.5); MEAN CORPUSCULAR HEMOGLOBIN 30.2 pg (27.0-33.0); MEAN CORPUSCULAR HGB CONC 34.7 g/dl (32.0-36.5); PLATELET COUNT, AUTOMATED 184 10^3/uL (150-450); RED BLOOD COUNT 5.16 10^6/uL (4.30-6.10); RED CELL DISTRIBUTION WIDTH 14.2 % (11.5-14.5); WHITE BLOOD COUNT 11.3 10^3/uL (4.0-10.0)
[2018-05-26 07:29] LABS: ALBUMIN 3.1 GM/DL (3.2-5.2); ALBUMIN/GLOBULIN RATIO 0.94 (1.00-1.93); ALKALINE PHOSPHATASE 64 U/L (45-117); ALT/SGPT 15 U/L (12-78); ANION GAP 10 MEQ/L (8-16); AST/SGOT 10 U/L (7-37); BILIRUBIN,TOTAL 0.6 MG/DL (0.2-1.0); BLOOD UREA NITROGEN 18 MG/DL (7-18); C REACTIVE PROTEIN QUANTITATIV 5.64 MG/DL (0.00-0.30); CALCIUM LEVEL 8.7 MG/DL (8.8-10.2); CARBON DIOXIDE LEVEL 24 MEQ/L (21-32); CHLORIDE LEVEL 103 MEQ/L (98-107); CREATININE FOR GFR 0.81 MG/DL (0.70-1.30); GLOMERULAR FILTRATION RATE > 60.0 (>35); GLUCOSE, FASTING 153 MG/DL (70-100); POTASSIUM SERUM 4.3 MEQ/L (3.5-5.1); SODIUM LEVEL 137 MEQ/L (136-145); TOTAL PROTEIN 6.4 GM/DL (6.4-8.2)
[2018-05-26] MEDS: HumaLOG INSULIN (NovoLOG) PER UNIT SC ×4 (07:30→20:46)
[2018-05-26] MEDS: LEVEMIR (INSULIN DETEMIR) 1 UNITS/0.01ML SC (07:48)
[2018-05-26] MEDS: CEFDINIR 300 MG CAP (OMNICEF) PO ×2 (07:48→21:01)
[2018-05-26] MEDS: FLUoxetine 20 MG CAP PO (07:49)
[2018-05-26] MEDS: metFORMIN (GLUCOPHAGE) 500 MG TAB PO ×2 (07:49→17:29)
[2018-05-26] MEDS: TAMSULOSIN 0.4 MG CAP PO (07:49)
[2018-05-26] MEDS: OCUVITE 1 TAB PO ×2 (07:49→21:01)
[2018-05-26] MEDS: APIXABAN 5 MG TAB (ELIQUIS) PO ×2 (07:50→21:02)
[2018-05-26] MEDS: POTASSIUM CHLORIDE 10 MEQ SR TABLET PO ×2 (07:50→21:02)
[2018-05-26] MEDS: CARVedilol 3.125 MG TAB PO ×2 (07:50→21:03)
[2018-05-26] MEDS: GLIMEPIRIDE 2 MG TAB PO (07:50)
[2018-05-26] MEDS: LISINOPRIL 10 MG TAB PO (07:51)
[2018-05-26] MEDS: **NOTE PATIENT COMMENT** MISC XX (07:51)
[2018-05-26] MEDS: MIRALAX *UNIT DOSE* 17GM PACKET PO (07:52)
[2018-05-26 11:42] LABS: BEDSIDE GLUCOSE 243 MG/DL (83-110)
[2018-05-26 17:24] LABS: BEDSIDE GLUCOSE 106 MG/DL (83-110)
[2018-05-26 20:13] LABS: BEDSIDE GLUCOSE 146 MG/DL (83-110)
[2018-05-26] MEDS: SENNA 8.6 MG TAB (SENOKOT) PO (21:02)
[2018-05-26] MEDS: LISINOPRIL 5 MG TAB PO (21:02)
[2018-05-26] MEDS: ATORVASTATIN 10 MG TAB PO (21:03)
[2018-05-26] MEDS: LIDOCAINE 5% (LIDODERM) PATCH TD (21:04)
[2018-05-27] MEDS: ACETAMINOPHEN 650MG ER TAB (TYLENOL ARTHRITIS) PO ×3 (05:28→21:35)
[2018-05-27 06:22] LABS: HEMATOCRIT 44.9 % (42.0-52.0); HEMOGLOBIN 15.4 g/dl (13.5-17.5); MEAN CORPUSCULAR HGB CONC 34.3 g/dl (32.0-36.5); MEAN CORPUSCULAR VOLUME 87.5 fl (80.0-96.0); PLATELET COUNT, AUTOMATED 192 10^3/uL (150-450); RED BLOOD COUNT 5.13 10^6/uL (4.30-6.10); RED CELL DISTRIBUTION WIDTH 14.2 % (11.5-14.5)
[2018-05-27 06:48] LABS: ALBUMIN 2.8 GM/DL (3.2-5.2); ALBUMIN/GLOBULIN RATIO 0.67 (1.00-1.93); ALKALINE PHOSPHATASE 64 U/L (45-117); ALT/SGPT 16 U/L (12-78); ANION GAP 9 MEQ/L (8-16); AST/SGOT 9 U/L (7-37); BILIRUBIN,TOTAL 0.6 MG/DL (0.2-1.0); BLOOD UREA NITROGEN 22 MG/DL (7-18); C REACTIVE PROTEIN QUANTITATIV 2.45 MG/DL (0.00-0.30); CALCIUM LEVEL 8.9 MG/DL (8.8-10.2); CARBON DIOXIDE LEVEL 25 MEQ/L (21-32); CHLORIDE LEVEL 102 MEQ/L (98-107); CREATININE FOR GFR 0.89 MG/DL (0.70-1.30); GLOMERULAR FILTRATION RATE > 60.0 (>35); GLUCOSE, FASTING 130 MG/DL (70-100); POTASSIUM SERUM 4.2 MEQ/L (3.5-5.1); SODIUM LEVEL 136 MEQ/L (136-145)
[2018-05-27] MEDS: HumaLOG INSULIN (NovoLOG) PER UNIT SC ×4 (07:30→21:00)
[2018-05-27] MEDS: OCUVITE 1 TAB PO ×2 (09:13→21:35)
[2018-05-27] MEDS: TAMSULOSIN 0.4 MG CAP PO (09:14)
[2018-05-27] MEDS: FLUoxetine 20 MG CAP PO (09:14)
[2018-05-27] MEDS: metFORMIN (GLUCOPHAGE) 500 MG TAB PO ×2 (09:15→18:22)
[2018-05-27] MEDS: APIXABAN 5 MG TAB (ELIQUIS) PO ×2 (09:15→21:35)
[2018-05-27] MEDS: POTASSIUM CHLORIDE 10 MEQ SR TABLET PO ×2 (09:15→21:36)
[2018-05-27] MEDS: CARVedilol 3.125 MG TAB PO ×2 (09:15→21:00)
[2018-05-27] MEDS: MIRALAX *UNIT DOSE* 17GM PACKET PO (09:16)
[2018-05-27] MEDS: LEVEMIR (INSULIN DETEMIR) 1 UNITS/0.01ML SC (09:16)
[2018-05-27] MEDS: LISINOPRIL 5 MG TAB PO (09:16)
[2018-05-27] MEDS: **NOTE PATIENT COMMENT** MISC XX (09:17)
[2018-05-27 12:06] LABS: BEDSIDE GLUCOSE 251 MG/DL (83-110)
[2018-05-27 16:47] LABS: BEDSIDE GLUCOSE 55 MG/DL (83-110)
[2018-05-27 20:57] LABS: BEDSIDE GLUCOSE 120 MG/DL (83-110)
[2018-05-27] MEDS: LIDOCAINE 5% (LIDODERM) PATCH TD (21:34)
[2018-05-27] MEDS: SENNA 8.6 MG TAB (SENOKOT) PO (21:35)
[2018-05-27] MEDS: ATORVASTATIN 10 MG TAB PO (21:36)
[2018-05-28 05:23] LABS: BEDSIDE GLUCOSE 145 MG/DL (83-110)
[2018-05-28] MEDS: ACETAMINOPHEN 650MG ER TAB (TYLENOL ARTHRITIS) PO ×3 (05:23→21:10)
[2018-05-28] MEDS: HumaLOG INSULIN (NovoLOG) PER UNIT SC ×4 (07:30→20:51)
[2018-05-28] MEDS: CARVedilol 3.125 MG TAB PO ×2 (08:34→20:51)
[2018-05-28] MEDS: APIXABAN 5 MG TAB (ELIQUIS) PO ×2 (08:34→20:50)
[2018-05-28] MEDS: FLUoxetine 20 MG CAP PO (08:35)
[2018-05-28] MEDS: LEVEMIR (INSULIN DETEMIR) 1 UNITS/0.01ML SC (08:35)
[2018-05-28] MEDS: TAMSULOSIN 0.4 MG CAP PO (08:35)
[2018-05-28] MEDS: POTASSIUM CHLORIDE 10 MEQ SR TABLET PO ×2 (08:35→20:50)
[2018-05-28] MEDS: metFORMIN (GLUCOPHAGE) 500 MG TAB PO ×2 (08:35→17:35)
[2018-05-28] MEDS: OCUVITE 1 TAB PO ×2 (08:35→20:50)
[2018-05-28] MEDS: MIRALAX *UNIT DOSE* 17GM PACKET PO (08:36)
[2018-05-28] MEDS: **NOTE PATIENT COMMENT** MISC XX (08:55)
[2018-05-28 11:39] LABS: BEDSIDE GLUCOSE 196 MG/DL (83-110)
[2018-05-28 16:50] LABS: BEDSIDE GLUCOSE 126 MG/DL (83-110)
[2018-05-28 20:22] LABS: BEDSIDE GLUCOSE 126 MG/DL (83-110)
[2018-05-28] MEDS: SENNA 8.6 MG TAB (SENOKOT) PO (20:50)
[2018-05-28] MEDS: ATORVASTATIN 10 MG TAB PO (20:50)
[2018-05-28] MEDS: LIDOCAINE 5% (LIDODERM) PATCH TD (20:51)
[2018-05-29] MEDS: ACETAMINOPHEN 650MG ER TAB (TYLENOL ARTHRITIS) PO ×3 (05:24→20:42)
[2018-05-29 06:23] LABS: BEDSIDE GLUCOSE 170 MG/DL (83-110)
[2018-05-29] MEDS: HumaLOG INSULIN (NovoLOG) PER UNIT SC ×4 (07:30→19:48)
[2018-05-29] MEDS: metFORMIN (GLUCOPHAGE) 500 MG TAB PO ×2 (08:05→17:23)
[2018-05-29] MEDS: OCUVITE 1 TAB PO ×2 (08:05→20:41)
[2018-05-29] MEDS: APIXABAN 5 MG TAB (ELIQUIS) PO ×2 (08:05→20:41)
[2018-05-29] MEDS: POTASSIUM CHLORIDE 10 MEQ SR TABLET PO ×2 (08:05→20:41)
[2018-05-29] MEDS: TAMSULOSIN 0.4 MG CAP PO (08:05)
[2018-05-29] MEDS: FLUoxetine 20 MG CAP PO (08:05)
[2018-05-29] MEDS: CARVedilol 3.125 MG TAB PO ×2 (08:06→19:49)
[2018-05-29] MEDS: **NOTE PATIENT COMMENT** MISC XX (08:06)
[2018-05-29] MEDS: MIRALAX *UNIT DOSE* 17GM PACKET PO (08:06)
[2018-05-29] MEDS: LEVEMIR (INSULIN DETEMIR) 1 UNITS/0.01ML SC (08:06)
[2018-05-29 11:26] LABS: BEDSIDE GLUCOSE 236 MG/DL (83-110)
[2018-05-29 16:55] LABS: BEDSIDE GLUCOSE 129 MG/DL (83-110)
[2018-05-29 19:45] LABS: BEDSIDE GLUCOSE 223 MG/DL (83-110)
[2018-05-29] MEDS: SENNA 8.6 MG TAB (SENOKOT) PO (20:41)
[2018-05-29] MEDS: ATORVASTATIN 10 MG TAB PO (20:41)
[2018-05-29] MEDS: LIDOCAINE 5% (LIDODERM) PATCH TD (20:42)
[2018-05-30] MEDS: ACETAMINOPHEN 650MG ER TAB (TYLENOL ARTHRITIS) PO ×3 (06:07→21:15)
[2018-05-30 06:13] LABS: BEDSIDE GLUCOSE 180 MG/DL (83-110)
[2018-05-30] MEDS: HumaLOG INSULIN (NovoLOG) PER UNIT SC ×4 (07:30→21:00)
[2018-05-30] MEDS: OCUVITE 1 TAB PO ×2 (08:12→21:15)
[2018-05-30] MEDS: metFORMIN (GLUCOPHAGE) 500 MG TAB PO ×2 (08:12→18:11)
[2018-05-30] MEDS: POTASSIUM CHLORIDE 10 MEQ SR TABLET PO ×2 (08:12→21:16)
[2018-05-30] MEDS: FLUoxetine 20 MG CAP PO (08:12)
[2018-05-30] MEDS: TAMSULOSIN 0.4 MG CAP PO (08:12)
[2018-05-30] MEDS: CARVedilol 3.125 MG TAB PO ×2 (08:13→21:00)
[2018-05-30] MEDS: APIXABAN 5 MG TAB (ELIQUIS) PO ×2 (08:13→21:16)
[2018-05-30] MEDS: LEVEMIR (INSULIN DETEMIR) 1 UNITS/0.01ML SC (08:13)
[2018-05-30] MEDS: **NOTE PATIENT COMMENT** MISC XX (08:14)
[2018-05-30] MEDS: MIRALAX *UNIT DOSE* 17GM PACKET PO (08:14)
[2018-05-30 11:31] LABS: BEDSIDE GLUCOSE 333 MG/DL (83-110)
[2018-05-30 16:47] LABS: BEDSIDE GLUCOSE 121 MG/DL (83-110)
[2018-05-30 20:32] LABS: BEDSIDE GLUCOSE 200 MG/DL (83-110)
[2018-05-30] MEDS: LIDOCAINE 5% (LIDODERM) PATCH TD ×2 (21:00→21:15)
[2018-05-30] MEDS: ATORVASTATIN 10 MG TAB PO (21:15)
[2018-05-30] MEDS: SENNA 8.6 MG TAB (SENOKOT) PO (21:17)
[2018-05-31] MEDS: ACETAMINOPHEN 650MG ER TAB (TYLENOL ARTHRITIS) PO (06:02)
[2018-05-31 06:46] LABS: BEDSIDE GLUCOSE 179 MG/DL (83-110)
[2018-05-31] MEDS: HumaLOG INSULIN (NovoLOG) PER UNIT SC (07:30)
[2018-05-31] MEDS: CARVedilol 3.125 MG TAB PO (08:47)
[2018-05-31] MEDS: APIXABAN 5 MG TAB (ELIQUIS) PO (08:47)
[2018-05-31] MEDS: metFORMIN (GLUCOPHAGE) 500 MG TAB PO (08:47)
[2018-05-31] MEDS: POTASSIUM CHLORIDE 10 MEQ SR TABLET PO (08:47)
[2018-05-31] MEDS: TAMSULOSIN 0.4 MG CAP PO (08:47)
[2018-05-31] MEDS: FLUoxetine 20 MG CAP PO (08:47)
[2018-05-31] MEDS: OCUVITE 1 TAB PO (08:47)
[2018-05-31] MEDS: MIRALAX *UNIT DOSE* 17GM PACKET PO (08:48)
[2018-05-31] MEDS: **NOTE PATIENT COMMENT** MISC XX (08:48)
[2018-05-31] MEDS: LEVEMIR (INSULIN DETEMIR) 1 UNITS/0.01ML SC (08:48)
[2018-05-31 11:20] LABS: BEDSIDE GLUCOSE 302 MG/DL (83-110)
[2018-05-31] MEDS ORDERED: INFLUENZA VIRUS VACCINE HIGH DOSE 0.5 ML SYRINGE (90662) IM (12:00)
== END 2018-05-31 11:35 | DRG 57 ==
LOC: M PM&R 16:02
PROVIDERS: Physical Medicine & Rehabilitation
DX: I69.351 Hemiplegia and hemiparesis following cerebral infarction affecting right dominant side (principal); E87.0 Hyperosmolality and hypernatremia; N39.0 Urinary tract infection, site not specified; E87.1 Hypo-osmolality and hyponatremia; R33.9 Retention of urine, unspecified; I10 Essential (primary) hypertension; E11.9 Type 2 diabetes mellitus without complications; I25.10 Atherosclerotic heart disease of native coronary artery without angina pectoris; I48.91 Unspecified atrial fibrillation; M19.90 Unspecified osteoarthritis, unspecified site; E78.5 Hyperlipidemia, unspecified; Z98.49 Cataract extraction status, unspecified eye; Z96.653 Presence of artificial knee joint, bilateral; Z87.891 Personal history of nicotine dependence; I69.392 Facial weakness following cerebral infarction; E87.6 Hypokalemia; I69.391 Dysphagia following cerebral infarction; R13.12 Dysphagia, oropharyngeal phase; Z88.5 Allergy status to narcotic agent; Z79.01 Long term (current) use of anticoagulants; Z79.4 Long term (current) use of insulin; N40.0 Benign prostatic hyperplasia without lower urinary tract symptoms; D72.829 Elevated white blood cell count, unspecified; B96.29 Other Escherichia coli [E. coli] as the cause of diseases classified elsewhere; R31.9 Hematuria, unspecified

== ENCOUNTER → 2018-06-07 | Outpatient (REF) ==
[2018-06-07 10:21] LABS: HEMOGLOBIN 15.1 g/dl (13.5-17.5); MEAN CORPUSCULAR HEMOGLOBIN 30.5 pg (27.0-33.0); MEAN CORPUSCULAR HGB CONC 34.3 g/dl (32.0-36.5); MEAN CORPUSCULAR VOLUME 88.9 fl (80.0-96.0); PLATELET COUNT, AUTOMATED 202 10^3/uL (150-450); RED BLOOD COUNT 4.95 10^6/uL (4.30-6.10); RED CELL DISTRIBUTION WIDTH 15.1 % (11.5-14.5); WHITE BLOOD COUNT 10.9 10^3/uL (4.0-10.0)
[2018-06-07 11:00] LABS: ANION GAP 11 MEQ/L (8-16); BLOOD UREA NITROGEN 28 MG/DL (7-18); CALCIUM LEVEL 8.6 MG/DL (8.8-10.2); CARBON DIOXIDE LEVEL 23 MEQ/L (21-32); CHLORIDE LEVEL 103 MEQ/L (98-107); CREATININE FOR GFR 1.05 MG/DL (0.70-1.30); GLOMERULAR FILTRATION RATE > 60.0 (>35); GLUCOSE, FASTING 225 MG/DL (70-100); POTASSIUM SERUM 4.6 MEQ/L (3.5-5.1); SODIUM LEVEL 137 MEQ/L (136-145)
== END ==
DX: I63.9 Cerebral infarction, unspecified (principal); I48.91 Unspecified atrial fibrillation

== ENCOUNTER → 2018-06-14 | Outpatient (REF) ==
[2018-06-14 10:36] LABS: HEMOGLOBIN 15.7 g/dl (13.5-17.5); MEAN CORPUSCULAR HEMOGLOBIN 30.1 pg (27.0-33.0); MEAN CORPUSCULAR HGB CONC 34.1 g/dl (32.0-36.5); MEAN CORPUSCULAR VOLUME 88.3 fl (80.0-96.0); PLATELET COUNT, AUTOMATED 236 10^3/uL (150-450); RED BLOOD COUNT 5.21 10^6/uL (4.30-6.10); RED CELL DISTRIBUTION WIDTH 15.2 % (11.5-14.5); WHITE BLOOD COUNT 12.8 10^3/uL (4.0-10.0)
[2018-06-14 11:05] LABS: ANION GAP 9 MEQ/L (8-16); BLOOD UREA NITROGEN 25 MG/DL (7-18); CALCIUM LEVEL 8.8 MG/DL (8.8-10.2); CARBON DIOXIDE LEVEL 26 MEQ/L (21-32); CHLORIDE LEVEL 104 MEQ/L (98-107); CREATININE FOR GFR 0.84 MG/DL (0.70-1.30); GLOMERULAR FILTRATION RATE > 60.0 (>35); GLUCOSE, FASTING 184 MG/DL (70-100); POTASSIUM SERUM 4.7 MEQ/L (3.5-5.1); SODIUM LEVEL 139 MEQ/L (136-145)
== END ==
DX: I48.91 Unspecified atrial fibrillation (principal); I63.9 Cerebral infarction, unspecified

== ENCOUNTER → 2018-06-15 | Outpatient (REF) | payer MEDICARE, SELFPAY ==
[2018-06-15 09:07] LABS: HEMATOCRIT 45.1 % (42.0-52.0); HEMOGLOBIN 15.3 g/dl (13.5-17.5); MEAN CORPUSCULAR HEMOGLOBIN 30.1 pg (27.0-33.0); MEAN CORPUSCULAR HGB CONC 33.9 g/dl (32.0-36.5); MEAN CORPUSCULAR VOLUME 88.6 fl (80.0-96.0); PLATELET COUNT, AUTOMATED 227 10^3/uL (150-450); RED BLOOD COUNT 5.09 10^6/uL (4.30-6.10); RED CELL DISTRIBUTION WIDTH 15.1 % (11.5-14.5); WHITE BLOOD COUNT 11.8 10^3/uL (4.0-10.0)
== END ==
DX: I67.9 Cerebrovascular disease, unspecified (principal)
CPT/HCPCS: 85027

== ENCOUNTER → 2018-06-21 | Outpatient (REF) | payer MEDICARE ==
[2018-06-21 09:54] LABS: HEMATOCRIT 43.7 % (42.0-52.0); MEAN CORPUSCULAR HEMOGLOBIN 29.9 pg (27.0-33.0); MEAN CORPUSCULAR HGB CONC 34.3 g/dl (32.0-36.5); MEAN CORPUSCULAR VOLUME 87.2 fl (80.0-96.0); PLATELET COUNT, AUTOMATED 237 10^3/uL (150-450); RED BLOOD COUNT 5.01 10^6/uL (4.30-6.10); RED CELL DISTRIBUTION WIDTH 15.4 % (11.5-14.5); WHITE BLOOD COUNT 12.8 10^3/uL (4.0-10.0)
[2018-06-21 10:24] LABS: ANION GAP 9 MEQ/L (8-16); BLOOD UREA NITROGEN 17 MG/DL (7-18); CALCIUM LEVEL 9.4 MG/DL (8.8-10.2); CARBON DIOXIDE LEVEL 25 MEQ/L (21-32); CHLORIDE LEVEL 101 MEQ/L (98-107); CREATININE FOR GFR 0.85 MG/DL (0.70-1.30); GLOMERULAR FILTRATION RATE > 60.0 (>35); GLUCOSE, FASTING 266 MG/DL (70-100); POTASSIUM SERUM 4.6 MEQ/L (3.5-5.1); SODIUM LEVEL 135 MEQ/L (136-145)
== END ==
DX: I48.91 Unspecified atrial fibrillation (principal); I63.9 Cerebral infarction, unspecified
CPT/HCPCS: 80048

== ENCOUNTER → 2018-07-21 | Outpatient (REF) ==
[2018-07-21 13:57] LABS: HEMATOCRIT 45.8 % (42.0-52.0); HEMOGLOBIN 15.1 g/dl (13.5-17.5); MEAN CORPUSCULAR HEMOGLOBIN 30.3 pg (27.0-33.0); MEAN CORPUSCULAR VOLUME 91.8 fl (80.0-96.0); PLATELET COUNT, AUTOMATED 230 10^3/uL (150-450); RED BLOOD COUNT 4.99 10^6/uL (4.30-6.10); RED CELL DISTRIBUTION WIDTH 15.9 % (11.5-14.5); WHITE BLOOD COUNT 12.6 10^3/uL (4.0-10.0)
[2018-07-21 14:28] LABS: ANION GAP 13 MEQ/L (8-16); BLOOD UREA NITROGEN 21 MG/DL (7-18); CALCIUM LEVEL 8.9 MG/DL (8.8-10.2); CARBON DIOXIDE LEVEL 21 MEQ/L (21-32); CHLORIDE LEVEL 100 MEQ/L (98-107); CREATININE FOR GFR 0.99 MG/DL (0.70-1.30); GLOMERULAR FILTRATION RATE > 60.0 (>35); GLUCOSE, FASTING 251 MG/DL (70-100); POTASSIUM SERUM 4.7 MEQ/L (3.5-5.1); SODIUM LEVEL 134 MEQ/L (136-145)
== END ==
DX: R53.1 Weakness (principal)

== ENCOUNTER → 2018-07-22 | Outpatient (REF) ==
[2018-07-22 13:08] LABS: HEMATOCRIT 42.9 % (42.0-52.0); HEMOGLOBIN 14.7 g/dl (13.5-17.5); MEAN CORPUSCULAR HEMOGLOBIN 30.4 pg (27.0-33.0); MEAN CORPUSCULAR HGB CONC 34.3 g/dl (32.0-36.5); MEAN CORPUSCULAR VOLUME 88.6 fl (80.0-96.0); PLATELET COUNT, AUTOMATED 223 10^3/uL (150-450); RED BLOOD COUNT 4.84 10^6/uL (4.30-6.10); WHITE BLOOD COUNT 13.9 10^3/uL (4.0-10.0)
[2018-07-22 13:32] LABS: ANION GAP 12 MEQ/L (8-16); BLOOD UREA NITROGEN 22 MG/DL (7-18); CARBON DIOXIDE LEVEL 24 MEQ/L (21-32); CHLORIDE LEVEL 101 MEQ/L (98-107); GLOMERULAR FILTRATION RATE > 60.0 (>35); GLUCOSE, FASTING 204 MG/DL (70-100); POTASSIUM SERUM 4.4 MEQ/L (3.5-5.1); SODIUM LEVEL 137 MEQ/L (136-145)
== END ==
DX: R53.1 Weakness (principal)

== ENCOUNTER 2018-08-26 08:39 | Inpatient (IN) | payer MEDICARE ==
[2018-08-26 09:17] LABS: BASO % 0.3 % (0.0-1.0); EOS # 0.3 10^3/uL (0.0-0.50); EOS % 1.7 % (0.0-3.0); HEMATOCRIT 37.5 % (42.0-52.0); HEMOGLOBIN 12.8 g/dl (13.5-17.5); IMMATURE GRANULOCYTE % 0.5 % (0-3.0); LYMPH # 1.3 10^3/uL (1.5-4.5); LYMPH % 8.5 % (24.0-44.0); MEAN CORPUSCULAR HEMOGLOBIN 31.5 pg (27.0-33.0); MEAN CORPUSCULAR HGB CONC 34.1 g/dl (32.0-36.5); MEAN CORPUSCULAR VOLUME 92.4 fl (80.0-96.0); MONO # 1.1 10^3/uL (0.0-0.8); NEUTROPHILS # 12.4 10^3/uL (1.8-7.7); PLATELET COUNT, AUTOMATED 184 10^3/uL (150-450); RED BLOOD COUNT 4.06 10^6/uL (4.30-6.10); RED CELL DISTRIBUTION WIDTH 14.8 % (11.5-14.5); WHITE BLOOD COUNT 15.1 10^3/uL (4.0-10.0)
[2018-08-26 09:29] LABS: INR 1.47; PROTHROMBIN TIME 18.1 SECONDS (12.1-14.4)
[2018-08-26 10:05] LABS: ALKALINE PHOSPHATASE 77 U/L (45-117); ALT/SGPT 16 U/L (12-78); ANION GAP 9 MEQ/L (8-16); AST/SGOT 19 U/L (7-37); BILIRUBIN,DIRECT 0.1 MG/DL (0.0-0.2); BILIRUBIN,TOTAL 0.7 MG/DL (0.2-1.0); BLOOD UREA NITROGEN 17 MG/DL (7-18); CALCIUM LEVEL 8.4 MG/DL (8.8-10.2); CARBON DIOXIDE LEVEL 26 MEQ/L (21-32); CHLORIDE LEVEL 104 MEQ/L (98-107); CREATININE FOR GFR 0.85 MG/DL (0.70-1.30); GLOMERULAR FILTRATION RATE > 60.0 (>35); GLUCOSE, FASTING 151 MG/DL (70-100); POTASSIUM SERUM 4.8 MEQ/L (3.5-5.1); SODIUM LEVEL 139 MEQ/L (136-145)
[2018-08-26 10:06] LABS: ALBUMIN 2.8 GM/DL (3.2-5.2); ALBUMIN/GLOBULIN RATIO 0.78 (1.00-1.93); LIPASE 44 U/L (73-393); TOTAL PROTEIN 6.4 GM/DL (6.4-8.2)
[2018-08-26] MEDS ORDERED: BISACODYL 10 MG SUPP PR (11:00)
[2018-08-26] MEDS ORDERED: GLUCOSE 4 GM CHEW TABLET PO (11:00)
[2018-08-26] MEDS ORDERED: ONDANSETRON 4MG/2ML VIAL (J2405) IV (11:00)
[2018-08-26] MEDS ORDERED: GLUCAGON FOR INJ 1 MG VIAL (J1610) SC (11:00)
[2018-08-26] MEDS ORDERED: DEXTROSE 50% 50 ML SYRINGE IV (11:00)
[2018-08-26] MEDS ORDERED: ISOVUE-370 76% 100ML VIAL (Q9967) As Ordered (11:27)
[2018-08-26] MEDS: HumaLOG INSULIN (NovoLOG) PER UNIT SC ×3 (12:00→21:00)
[2018-08-26] MEDS: NS 1,000 ML IV (12:00)
[2018-08-26 12:51] LABS: BEDSIDE GLUCOSE 90 MG/DL (83-110)
[2018-08-26] MEDS: FLUoxetine 20 MG CAP PO (12:55)
[2018-08-26] MEDS: PANTOPRAZOLE 40MG INJ (PROTONIX) (C9113) IV ×2 (12:56→21:00)
[2018-08-26] MEDS: CARVedilol 3.125 MG TAB PO ×2 (12:56→21:07)
[2018-08-26 13:53] LABS: HEMATOCRIT 36.7 % (42.0-52.0); HEMOGLOBIN 12.6 g/dl (13.5-17.5)
[2018-08-26] MEDS: BISACODYL 5 MG TAB PO (15:58)
[2018-08-26] MEDS: METHYLPHENIDATE 5 MG TAB PO (15:58)
[2018-08-26 18:11] LABS: BEDSIDE GLUCOSE 145 MG/DL (83-110)
[2018-08-26] MEDS: GOLYTELY SOLN 4000 ML BTL PO (18:17)
[2018-08-26 20:14] LABS: HEMATOCRIT 36.2 % (42.0-52.0); HEMOGLOBIN 12.4 g/dl (13.5-17.5)
[2018-08-26 21:02] LABS: BEDSIDE GLUCOSE 150 MG/DL (83-110)
[2018-08-26] MEDS: OCUVITE 1 TAB PO (21:05)
[2018-08-26] MEDS: SENOKOT S TAB PO (21:06)
[2018-08-26] MEDS: ATORVASTATIN 10 MG TAB PO (21:06)
[2018-08-27 01:17] LABS: HEMATOCRIT 34.7 % (42.0-52.0); HEMOGLOBIN 11.7 g/dl (13.5-17.5); MEAN CORPUSCULAR HEMOGLOBIN 30.8 pg (27.0-33.0); MEAN CORPUSCULAR HGB CONC 33.7 g/dl (32.0-36.5); MEAN CORPUSCULAR VOLUME 91.3 fl (80.0-96.0); PLATELET COUNT, AUTOMATED 170 10^3/uL (150-450); RED CELL DISTRIBUTION WIDTH 14.7 % (11.5-14.5); WHITE BLOOD COUNT 11.4 10^3/uL (4.0-10.0)
[2018-08-27 05:01] LABS: HEMATOCRIT 34.4 % (42.0-52.0); HEMOGLOBIN 11.6 g/dl (13.5-17.5); MEAN CORPUSCULAR HEMOGLOBIN 30.7 pg (27.0-33.0); MEAN CORPUSCULAR HGB CONC 33.7 g/dl (32.0-36.5); PLATELET COUNT, AUTOMATED 175 10^3/uL (150-450); RED BLOOD COUNT 3.78 10^6/uL (4.30-6.10); RED CELL DISTRIBUTION WIDTH 14.6 % (11.5-14.5)
[2018-08-27 05:28] LABS: ANION GAP 6 MEQ/L (8-16); BLOOD UREA NITROGEN 12 MG/DL (7-18); CALCIUM LEVEL 7.6 MG/DL (8.8-10.2); CARBON DIOXIDE LEVEL 28 MEQ/L (21-32); CHLORIDE LEVEL 104 MEQ/L (98-107); CREATININE FOR GFR 0.63 MG/DL (0.70-1.30); GLOMERULAR FILTRATION RATE > 60.0 (>35); GLUCOSE, FASTING 159 MG/DL (70-100); MAGNESIUM LEVEL 1.5 MG/DL (1.8-2.4); POTASSIUM SERUM 3.5 MEQ/L (3.5-5.1); SODIUM LEVEL 138 MEQ/L (136-145)
[2018-08-27] MEDS: MAG SULF 1GM/100ML (MAG RUN) 1 GM in APPROPRIATE DILUENT 1 EA IV (05:45)
[2018-08-27] MEDS: LEVEMIR (INSULIN DETEMIR) 1 UNITS/0.01ML SC (06:00)
[2018-08-27] MEDS: METHYLPHENIDATE 5 MG TAB PO ×2 (06:00→18:04)
[2018-08-27 07:13] LABS: HEMATOCRIT 36.9 % (42.0-52.0); HEMOGLOBIN 12.6 g/dl (13.5-17.5)
[2018-08-27] MEDS ORDERED: MAG SULF 1GM/100ML (MAG RUN) 1 GM in APPROPRIATE DILUENT 1 EA IV (07:15)
[2018-08-27] MEDS: HumaLOG INSULIN (NovoLOG) PER UNIT SC ×4 (07:44→20:20)
[2018-08-27] MEDS: CARVedilol 3.125 MG TAB PO ×2 (09:00→20:20)
[2018-08-27] MEDS ORDERED: fentaNYL 100 MCG/2 ML INJECTION (J3010) As Ordered (10:56)
[2018-08-27] MEDS ORDERED: PHENYLephrine HCL 500 MCG/5 ML (100MCG/ML) SYRINGE (J2370) As Ordered (10:56)
[2018-08-27] MEDS ORDERED: LIDOCAINE 2% INJ 100 MG/5 ML SDV (FOR ANES.) As Ordered (10:56)
[2018-08-27] MEDS ORDERED: PROPOFOL 500 MG/50 ML VIAL As Ordered (10:56)
[2018-08-27] MEDS ORDERED: ePHEDrine SULFATE 25 MG/5 ML(5MG/ML) SYRINGE As Ordered (11:04)
[2018-08-27 12:18] LABS: BEDSIDE GLUCOSE 165 MG/DL (83-110)
[2018-08-27] MEDS: POTASSIUM CHLORIDE 10 MEQ SR TABLET PO (12:54)
[2018-08-27] MEDS: OCUVITE 1 TAB PO ×2 (12:55→20:19)
[2018-08-27] MEDS: FLUoxetine 20 MG CAP PO (12:55)
[2018-08-27] MEDS: SENOKOT S TAB PO ×2 (12:55→20:19)
[2018-08-27] MEDS: TAMSULOSIN 0.4 MG CAP PO (12:55)
[2018-08-27] MEDS: PANTOPRAZOLE 40MG INJ (PROTONIX) (C9113) IV ×2 (12:55→20:20)
[2018-08-27 14:09] LABS: HEMATOCRIT 35.7 % (42.0-52.0)
[2018-08-27] MEDS: GOLYTELY SOLN 4000 ML BTL PO (15:43)
[2018-08-27] MEDS: BISACODYL 5 MG TAB PO (18:04)
[2018-08-27] MEDS: NS 1,000 ML IV (18:04)
[2018-08-27] MEDS: ATORVASTATIN 10 MG TAB PO (20:19)
[2018-08-27 20:45] LABS: BEDSIDE GLUCOSE 211 MG/DL (83-110)
[2018-08-28] MEDS: NS 1,000 ML IV (05:14)
[2018-08-28 05:38] LABS: HEMATOCRIT 34.4 % (42.0-52.0); HEMOGLOBIN 11.8 g/dl (13.5-17.5); MEAN CORPUSCULAR HEMOGLOBIN 30.4 pg (27.0-33.0); MEAN CORPUSCULAR HGB CONC 34.3 g/dl (32.0-36.5); MEAN CORPUSCULAR VOLUME 88.7 fl (80.0-96.0); PLATELET COUNT, AUTOMATED 180 10^3/uL (150-450); RED BLOOD COUNT 3.88 10^6/uL (4.30-6.10); RED CELL DISTRIBUTION WIDTH 14.3 % (11.5-14.5); WHITE BLOOD COUNT 10.3 10^3/uL (4.0-10.0)
[2018-08-28] MEDS: LEVEMIR (INSULIN DETEMIR) 1 UNITS/0.01ML SC ×2 (06:00→12:00)
[2018-08-28 06:03] LABS: ANION GAP 10 MEQ/L (8-16); BLOOD UREA NITROGEN 7 MG/DL (7-18); CARBON DIOXIDE LEVEL 25 MEQ/L (21-32); CHLORIDE LEVEL 103 MEQ/L (98-107); CREATININE FOR GFR 0.62 MG/DL (0.70-1.30); GLOMERULAR FILTRATION RATE > 60.0 (>35); GLUCOSE, FASTING 182 MG/DL (70-100); MAGNESIUM LEVEL 1.3 MG/DL (1.8-2.4); POTASSIUM SERUM 3.4 MEQ/L (3.5-5.1); SODIUM LEVEL 138 MEQ/L (136-145)
[2018-08-28] MEDS: METHYLPHENIDATE 5 MG TAB PO ×2 (06:32→17:41)
[2018-08-28] MEDS: KCL 20MEQ in NS 1000ML 1,000 ML IV (07:45)
[2018-08-28] MEDS: MAG SULF 1GM/100ML (MAG RUN) 1 GM in APPROPRIATE DILUENT 1 EA IV ×2 (08:35→11:40)
[2018-08-28] MEDS: HumaLOG INSULIN (NovoLOG) PER UNIT SC ×4 (08:36→21:25)
[2018-08-28] MEDS: OCUVITE 1 TAB PO ×2 (08:37→20:20)
[2018-08-28] MEDS: POTASSIUM CHLORIDE 10 MEQ SR TABLET PO (08:37)
[2018-08-28] MEDS: CARVedilol 3.125 MG TAB PO ×2 (08:38→20:21)
[2018-08-28] MEDS: SENOKOT S TAB PO ×2 (08:41→20:21)
[2018-08-28] MEDS: FLUoxetine 20 MG CAP PO (08:42)
[2018-08-28] MEDS: TAMSULOSIN 0.4 MG CAP PO (08:42)
[2018-08-28] MEDS: PANTOPRAZOLE 40MG INJ (PROTONIX) (C9113) IV ×2 (08:43→20:21)
[2018-08-28] MEDS: FLEET ENEMA PR ×2 (10:42→13:15)
[2018-08-28 11:13] LABS: BEDSIDE GLUCOSE 123 MG/DL (83-110)
[2018-08-28] MEDS ORDERED: LIDOCAINE 2% INJ 100 MG/5 ML SDV (FOR ANES.) As Ordered ×2 (14:36→15:06)
[2018-08-28] MEDS ORDERED: PROPOFOL 200 MG/20 ML VIAL As Ordered ×2 (14:36→15:06)
[2018-08-28] MEDS ORDERED: PHENYLephrine HCL 500 MCG/5 ML (100MCG/ML) SYRINGE (J2370) As Ordered (14:36)
[2018-08-28 16:30] LABS: HEMATOCRIT 36.1 % (42.0-52.0); HEMOGLOBIN 12.3 g/dl (13.5-17.5)
[2018-08-28 17:25] LABS: BEDSIDE GLUCOSE 242 MG/DL (83-110)
[2018-08-28] MEDS: ATORVASTATIN 10 MG TAB PO (20:20)
[2018-08-29] MEDS: ACETAMINOPHEN TAB 650MG DOSE (2X325MG) PO (04:12)
[2018-08-29 05:42] LABS: HEMATOCRIT 33.1 % (42.0-52.0); HEMOGLOBIN 11.3 g/dl (13.5-17.5); MEAN CORPUSCULAR HEMOGLOBIN 30.7 pg (27.0-33.0); MEAN CORPUSCULAR HGB CONC 34.1 g/dl (32.0-36.5); MEAN CORPUSCULAR VOLUME 89.9 fl (80.0-96.0); PLATELET COUNT, AUTOMATED 184 10^3/uL (150-450); RED BLOOD COUNT 3.68 10^6/uL (4.30-6.10); RED CELL DISTRIBUTION WIDTH 14.3 % (11.5-14.5); WHITE BLOOD COUNT 9.6 10^3/uL (4.0-10.0)
[2018-08-29 05:57] LABS: ANION GAP 9 MEQ/L (8-16); BLOOD UREA NITROGEN 6 MG/DL (7-18); CALCIUM LEVEL 8.1 MG/DL (8.8-10.2); CARBON DIOXIDE LEVEL 25 MEQ/L (21-32); CHLORIDE LEVEL 106 MEQ/L (98-107); CREATININE FOR GFR 0.78 MG/DL (0.70-1.30); GLOMERULAR FILTRATION RATE > 60.0 (>35); GLUCOSE, FASTING 201 MG/DL (70-100); MAGNESIUM LEVEL 1.5 MG/DL (1.8-2.4); POTASSIUM SERUM 3.2 MEQ/L (3.5-5.1); SODIUM LEVEL 140 MEQ/L (136-145)
[2018-08-29] MEDS: METHYLPHENIDATE 5 MG TAB PO (06:50)
[2018-08-29] MEDS: LEVEMIR (INSULIN DETEMIR) 1 UNITS/0.01ML SC (06:51)
[2018-08-29] MEDS: APIXABAN 5 MG TAB (ELIQUIS) PO (08:31)
[2018-08-29] MEDS: PANTOPRAZOLE 40MG INJ (PROTONIX) (C9113) IV (08:31)
[2018-08-29] MEDS: SENOKOT S TAB PO (08:31)
[2018-08-29] MEDS: MAG SULF 1GM/100ML (MAG RUN) 1 GM in APPROPRIATE DILUENT 1 EA IV ×2 (08:31→12:02)
[2018-08-29] MEDS: FLUoxetine 20 MG CAP PO (08:32)
[2018-08-29] MEDS: POTASSIUM CHLORIDE 10 MEQ SR TABLET PO (08:32)
[2018-08-29] MEDS: OCUVITE 1 TAB PO (08:32)
[2018-08-29] MEDS: TAMSULOSIN 0.4 MG CAP PO (08:32)
[2018-08-29] MEDS: CARVedilol 3.125 MG TAB PO (08:33)
[2018-08-29] MEDS: HumaLOG INSULIN (NovoLOG) PER UNIT SC ×2 (08:37→12:01)
[2018-08-29 11:54] LABS: BEDSIDE GLUCOSE 289 MG/DL (83-110)
== END 2018-08-29 14:10 | DRG 378 ==
LOC: M ED 08:39 → M ED INP 10:58 → M ICU 12:30 → M PCU 17:00
PROC: 0DJ08ZZ Inspection of Upper Intestinal Tract, Via Natural or Artificial Opening Endoscopic (ICD-10-PCS; principal; 2018-08-27 10:00)
PROC: 0DJD8ZZ Inspection of Lower Intestinal Tract, Via Natural or Artificial Opening Endoscopic (ICD-10-PCS; 2018-08-27 10:00)
PROC: 0W3P8ZZ Control Bleeding in Gastrointestinal Tract, Via Natural or Artificial Opening Endoscopic (ICD-10-PCS; 2018-08-27 10:41)
DX: K55.21 Angiodysplasia of colon with hemorrhage (principal); D62 Acute posthemorrhagic anemia; I69.951 Hemiplegia and hemiparesis following unspecified cerebrovascular disease affecting right dominant side; I48.91 Unspecified atrial fibrillation; E78.5 Hyperlipidemia, unspecified; N40.0 Benign prostatic hyperplasia without lower urinary tract symptoms; E11.9 Type 2 diabetes mellitus without complications; Z79.01 Long term (current) use of anticoagulants; I10 Essential (primary) hypertension; Z79.899 Other long term (current) drug therapy; Z88.5 Allergy status to narcotic agent; Z96.651 Presence of right artificial knee joint; Z96.652 Presence of left artificial knee joint; Z87.891 Personal history of nicotine dependence; K44.9 Diaphragmatic hernia without obstruction or gangrene; F32.9 Major depressive disorder, single episode, unspecified

== ENCOUNTER → 2018-09-01 | Outpatient (REF) ==
[~2018-09-01] MED LIST changes: +/PANT40TA; +/TAMS4CA; +/WARF25TA; +/WARF3TA; +/WARF4TA; +ACET65TA; +ACTO45TA; +ALOP5TAB; +AMBI5TAB; +APAP325T4 PO; +ASPI81TA85; +ATEN25TA; +ATOR1TAB19 PO; +BISA10SU2; +BISA10SU27 PR; +BISA5TA; +CALC12502; +CARV3.12 PO; +COLA100C2; +CORE6.25 PO; +COUM1TAB; +COUM2.5T17 PO; +COUMADIN; +DARB60SYR; -DEXTROSE 50% 50 ML SYRINGE IV; +DIGO0.126; +DIGO0.257; +DILT1TAB12 PO; +DILT60TA PO; +DILT90TA PO; +DULC5TAB PO; +ELIQ5TAB PO; +ENEM1ENE4 PR; +FERR324T5; +FERR325T; +FISH13602; +FLEC50TA2; +FLOM0.4C39 PO; +FLUO20CA19 PO; +FLUO20CA8 PO; +GLUC1000; +GLUC1000 PO; +GLUC500T; +GLUC500T PO; -GLUCAGON FOR INJ 1 MG VIAL (J1610) SC; -GLUCOSE 4 GM CHEW TABLET PO; +HEPA100I16 IV; +INSUDET SC; +INSUHUMDS SC; +INSULANT; +KLOR10TA76 PO; +KLOR20TA42 PO; +LEVAMIR; +LEVE1INJ5 SC; +LIDO1CRE2 TOP; +LIDO5TD TD; +LISI-538 PO; +LISI20TA5; +MAALSUS8 PO; +META0.52 PO; +METAMUCIL; +METF500T13 PO; +MILK12002 PO; +MILKSUS; +MIRA3350 PO; +MIRA33504 PO; +MIRALEX; +MULTIVIT; +NAFC2VLAD IV; +NAFCILLIN; +NEXI20CA; +NOVOINJ3; +NOVOLOG100 MG/ML; +NUCY50TA6 PO; +OMEGA 3; +PRESCAP PO; +PRIN10TA; +PROS5TAB; +RIFA300C3; +RIFA300C3 PO; +RITA5TAB PO; +SALI0.9I2 IV; +SENN18TA PO; +SENN8.6T14; +SENN8.6T17 PO; +SENO8.6T5; +SIMV20TA2 PO; +SODIUM CHLORIDE 0.9%; +STARLIX; +TENO25TA; +THERGRAN; +TIGA100I; +TRAM50TA2; +TUMS500C PO; +TYLE650T30 PO; +ULTR100T6 PO; +ULTR200T; +ULTR50TA8 PO; +VICO5TAB; +WARFARIN; +XARE10TA PO; +ZOCO20TA; +ZOFR4TAB16 PO; +[UNRECOGNIZED DRUG - OTHER]; +[UNRECOGNIZED DRUG - OTHER]; +[UNRECOGNIZED DRUG - OTHER]; +levemir; +metamucil; +mylanta; +mylicon; +omega; +starlix; -traMADol 50 MG TAB PO; +vancomycin hcl
[2018-09-01 13:02] LABS: HEMATOCRIT 37.5 % (42.0-52.0); HEMOGLOBIN 12.4 g/dl (13.5-17.5); MEAN CORPUSCULAR HEMOGLOBIN 31.2 pg (27.0-33.0); MEAN CORPUSCULAR HGB CONC 33.1 g/dl (32.0-36.5); MEAN CORPUSCULAR VOLUME 94.2 fl (80.0-96.0); PLATELET COUNT, AUTOMATED 234 10^3/uL (150-450); RED BLOOD COUNT 3.98 10^6/uL (4.30-6.10)
[2018-09-01 13:30] LABS: BLOOD UREA NITROGEN 15 MG/DL (7-18); CALCIUM LEVEL 8.5 MG/DL (8.8-10.2); CARBON DIOXIDE LEVEL 23 MEQ/L (21-32); CHLORIDE LEVEL 100 MEQ/L (98-107); CREATININE FOR GFR 0.96 MG/DL (0.70-1.30); GLOMERULAR FILTRATION RATE > 60.0 (>35); GLUCOSE, FASTING 343 MG/DL (70-100); POTASSIUM SERUM 4.7 MEQ/L (3.5-5.1); SODIUM LEVEL 135 MEQ/L (136-145)
== END ==
PROVIDERS: ATTEND Internal Medicine
DX: I10 Essential (primary) hypertension (principal); E11.9 Type 2 diabetes mellitus without complications

== ENCOUNTER → 2018-09-05 | Outpatient (REF) ==
[2018-09-05 10:03] LABS: HEMATOCRIT 34.7 % (42.0-52.0); HEMOGLOBIN 11.3 g/dl (13.5-17.5); MEAN CORPUSCULAR HEMOGLOBIN 30.3 pg (27.0-33.0); MEAN CORPUSCULAR HGB CONC 32.6 g/dl (32.0-36.5); PLATELET COUNT, AUTOMATED 241 10^3/uL (150-450); RED BLOOD COUNT 3.73 10^6/uL (4.30-6.10); WHITE BLOOD COUNT 10.5 10^3/uL (4.0-10.0)
[2018-09-05 10:56] LABS: BLOOD UREA NITROGEN 13 MG/DL (7-18); CALCIUM LEVEL 8.3 MG/DL (8.8-10.2); CARBON DIOXIDE LEVEL 26 MEQ/L (21-32); CHLORIDE LEVEL 103 MEQ/L (98-107); CREATININE FOR GFR 0.73 MG/DL (0.70-1.30); GLOMERULAR FILTRATION RATE > 60.0 (>35); GLUCOSE, FASTING 148 MG/DL (70-100); POTASSIUM SERUM 4.3 MEQ/L (3.5-5.1); SODIUM LEVEL 138 MEQ/L (136-145)
== END ==
PROVIDERS: ATTEND Internal Medicine
DX: K92.2 Gastrointestinal hemorrhage, unspecified (principal); E87.6 Hypokalemia

== ENCOUNTER → 2018-09-09 | Outpatient (REF) ==
[2018-09-09 11:05] LABS: HEMATOCRIT 36.3 % (42.0-52.0); MEAN CORPUSCULAR HEMOGLOBIN 30.6 pg (27.0-33.0); MEAN CORPUSCULAR HGB CONC 33.1 g/dl (32.0-36.5); MEAN CORPUSCULAR VOLUME 92.6 fl (80.0-96.0); PLATELET COUNT, AUTOMATED 260 10^3/uL (150-450); RED BLOOD COUNT 3.92 10^6/uL (4.30-6.10); WHITE BLOOD COUNT 12.1 10^3/uL (4.0-10.0)
[2018-09-09 12:02] LABS: BLOOD UREA NITROGEN 15 MG/DL (7-18); CALCIUM LEVEL 8.5 MG/DL (8.8-10.2); CARBON DIOXIDE LEVEL 20 MEQ/L (21-32); CHLORIDE LEVEL 101 MEQ/L (98-107); CREATININE FOR GFR 1.05 MG/DL (0.70-1.30); GLOMERULAR FILTRATION RATE > 60.0 (>35); GLUCOSE, FASTING 351 MG/DL (70-100); POTASSIUM SERUM 4.6 MEQ/L (3.5-5.1); SODIUM LEVEL 136 MEQ/L (136-145)
== END ==
PROVIDERS: ATTEND Internal Medicine
DX: K92.2 Gastrointestinal hemorrhage, unspecified (principal); E87.6 Hypokalemia

== ENCOUNTER → 2018-09-12 | Outpatient (REF) ==
[2018-09-12 10:42] LABS: HEMOGLOBIN 12.3 g/dl (13.5-17.5); MEAN CORPUSCULAR HEMOGLOBIN 30.4 pg (27.0-33.0); MEAN CORPUSCULAR HGB CONC 33.2 g/dl (32.0-36.5); MEAN CORPUSCULAR VOLUME 91.4 fl (80.0-96.0); PLATELET COUNT, AUTOMATED 230 10^3/uL (150-450); RED BLOOD COUNT 4.05 10^6/uL (4.30-6.10); WHITE BLOOD COUNT 11.2 10^3/uL (4.0-10.0)
[2018-09-12 11:07] LABS: BLOOD UREA NITROGEN 18 MG/DL (7-18); CALCIUM LEVEL 8.4 MG/DL (8.8-10.2); CARBON DIOXIDE LEVEL 25 MEQ/L (21-32); CHLORIDE LEVEL 103 MEQ/L (98-107); CREATININE FOR GFR 0.77 MG/DL (0.70-1.30); GLOMERULAR FILTRATION RATE > 60.0 (>35); GLUCOSE, FASTING 127 MG/DL (70-100); POTASSIUM SERUM 4.4 MEQ/L (3.5-5.1); SODIUM LEVEL 139 MEQ/L (136-145)
== END ==
PROVIDERS: ATTEND Internal Medicine
DX: K92.2 Gastrointestinal hemorrhage, unspecified (principal); E87.6 Hypokalemia

== ENCOUNTER → 2018-09-21 | Outpatient (REF) | payer MEDICARE ==
[~2018-09-21] MED LIST changes: +MILK120011 PO; -MILK12002 PO; +NUCY50TA19 PO; -NUCY50TA6 PO
[2018-09-21 09:45] LABS: HEMATOCRIT 38.8 % (42.0-52.0); HEMOGLOBIN 12.8 g/dl (13.5-17.5); MEAN CORPUSCULAR VOLUME 90.9 fl (80.0-96.0); PLATELET COUNT, AUTOMATED 267 10^3/uL (150-450); RED BLOOD COUNT 4.27 10^6/uL (4.30-6.10); WHITE BLOOD COUNT 9.8 10^3/uL (4.0-10.0)
[2018-09-21 10:01] LABS: BLOOD UREA NITROGEN 15 MG/DL (7-18); CALCIUM LEVEL 8.9 MG/DL (8.8-10.2); CARBON DIOXIDE LEVEL 25 MEQ/L (21-32); CHLORIDE LEVEL 103 MEQ/L (98-107); CREATININE FOR GFR 0.83 MG/DL (0.70-1.30); GLOMERULAR FILTRATION RATE > 60.0 (>35); GLUCOSE, FASTING 156 MG/DL (70-100); POTASSIUM SERUM 4.3 MEQ/L (3.5-5.1); SODIUM LEVEL 137 MEQ/L (136-145)
== END ==
PROVIDERS: ATTEND Internal Medicine
DX: K92.2 Gastrointestinal hemorrhage, unspecified (principal); E87.6 Hypokalemia

== ENCOUNTER → 2018-09-28 | Outpatient (REF) | payer MEDICARE ==
[2018-09-28 10:05] LABS: HEMATOCRIT 38.7 % (42.0-52.0); HEMOGLOBIN 12.7 g/dl (13.5-17.5); MEAN CORPUSCULAR HEMOGLOBIN 28.9 pg (27.0-33.0); MEAN CORPUSCULAR HGB CONC 32.8 g/dl (32.0-36.5); PLATELET COUNT, AUTOMATED 261 10^3/uL (150-450)
[2018-09-28 10:25] LABS: BLOOD UREA NITROGEN 15 MG/DL (7-18); CALCIUM LEVEL 8.5 MG/DL (8.8-10.2); CARBON DIOXIDE LEVEL 25 MEQ/L (21-32); CHLORIDE LEVEL 104 MEQ/L (98-107); CREATININE FOR GFR 0.86 MG/DL (0.70-1.30); GLOMERULAR FILTRATION RATE > 60.0 (>35); GLUCOSE, FASTING 137 MG/DL (70-100); POTASSIUM SERUM 4.3 MEQ/L (3.5-5.1); SODIUM LEVEL 139 MEQ/L (136-145)
== END ==
PROVIDERS: ATTEND Internal Medicine
DX: E87.6 Hypokalemia (principal)

== ENCOUNTER → 2018-10-05 | Outpatient (REF) | payer MEDICARE ==
[2018-10-05 09:35] LABS: HEMATOCRIT 39.5 % (42.0-52.0); HEMOGLOBIN 12.8 g/dl (13.5-17.5); MEAN CORPUSCULAR HEMOGLOBIN 28.9 pg (27.0-33.0); MEAN CORPUSCULAR HGB CONC 32.4 g/dl (32.0-36.5); MEAN CORPUSCULAR VOLUME 89.2 fl (80.0-96.0); PLATELET COUNT, AUTOMATED 254 10^3/uL (150-450); RED BLOOD COUNT 4.43 10^6/uL (4.30-6.10); WHITE BLOOD COUNT 10.4 10^3/uL (4.0-10.0)
[2018-10-05 10:02] LABS: BLOOD UREA NITROGEN 19 MG/DL (7-18); CALCIUM LEVEL 8.6 MG/DL (8.8-10.2); CARBON DIOXIDE LEVEL 26 MEQ/L (21-32); CHLORIDE LEVEL 103 MEQ/L (98-107); CREATININE FOR GFR 0.85 MG/DL (0.70-1.30); GLOMERULAR FILTRATION RATE > 60.0 (>35); GLUCOSE, FASTING 105 MG/DL (70-100); POTASSIUM SERUM 4.2 MEQ/L (3.5-5.1); SODIUM LEVEL 140 MEQ/L (136-145)
== END ==
PROVIDERS: ATTEND Internal Medicine
DX: K92.2 Gastrointestinal hemorrhage, unspecified (principal); E87.6 Hypokalemia

== ENCOUNTER → 2018-10-11 | Outpatient (REF) | payer MEDICARE ==
[~2018-10-11] MED LIST changes: -/PANT40TA; -/TAMS4CA; -/WARF25TA; -/WARF3TA; -/WARF4TA; +COUM1TAB14; +COUM1TAB18; +COUM1TAB19; +FLOM0.4C39; +PROT1TAB2
[2018-10-11 10:14] LABS: HEMATOCRIT 41.3 % (42.0-52.0); HEMOGLOBIN 13.3 g/dl (13.5-17.5); MEAN CORPUSCULAR HEMOGLOBIN 28.5 pg (27.0-33.0); MEAN CORPUSCULAR HGB CONC 32.2 g/dl (32.0-36.5); MEAN CORPUSCULAR VOLUME 88.4 fl (80.0-96.0); PLATELET COUNT, AUTOMATED 243 10^3/uL (150-450); RED BLOOD COUNT 4.67 10^6/uL (4.30-6.10); WHITE BLOOD COUNT 11.7 10^3/uL (4.0-10.0)
[2018-10-11 10:39] LABS: BLOOD UREA NITROGEN 18 MG/DL (7-18); CALCIUM LEVEL 8.8 MG/DL (8.8-10.2); CARBON DIOXIDE LEVEL 24 MEQ/L (21-32); CHLORIDE LEVEL 103 MEQ/L (98-107); CREATININE FOR GFR 0.97 MG/DL (0.70-1.30); GLOMERULAR FILTRATION RATE > 60.0 (>35); GLUCOSE, FASTING 254 MG/DL (70-100); POTASSIUM SERUM 4.7 MEQ/L (3.5-5.1); SODIUM LEVEL 137 MEQ/L (136-145)
== END ==
PROVIDERS: ATTEND Internal Medicine
DX: E87.6 Hypokalemia (principal); K92.2 Gastrointestinal hemorrhage, unspecified

== ENCOUNTER → 2018-10-16 | Outpatient (REF) | payer MEDICARE ==
[~2018-10-16] MED LIST changes: +/PANT40TA; +/TAMS4CA; +/WARF25TA; +/WARF3TA; +/WARF4TA; -COUM1TAB14; -COUM1TAB18; -COUM1TAB19; -FLOM0.4C39; -PROT1TAB2
[2018-10-16 04:26] LABS: AMORPHOUS SEDIMENT SMALL (NEGATIVE); APPEARANCE, URINE CLOUDY (CLEAR); BACTERIA, URINE AUTO 2+ (NEGATIVE); BILIRUBIN, URINE AUTO NEGATIVE (NEGATIVE); BLOOD, URINE BLOOD 3+ (NEGATIVE); CALCIUM OXALATE CRYSTALS SMALL; COLOR, URINE YELLOW (YELLOW); GLUCOSE, URINE (UA) AUTO NEGATIVE (NEGATIVE); KETONE, URINE AUTO NEGATIVE (NEGATIVE); LEUKOCYTE ESTERASE, URINE AUTO 2+ (NEGATIVE); MUCUS, URINE SMALL (NEGATIVE); NITRITE, URINE AUTO NEGATIVE (NEGATIVE); PROTEIN, URINE AUTO 2+ mg/dL (NEGATIVE); RBC, URINE AUTO TNTC /HPF (0-3); SPECIFIC GRAVITY URINE AUTO 1.016 (1.002-1.035); SQUAMOUS EPITHELIAL CELL UR AU 0 /HPF (0-6); WBC, URINE AUTO 54 /HPF (0-3)
== END ==
PROVIDERS: ATTEND Internal Medicine
DX: R31.9 Hematuria, unspecified (principal)

== ENCOUNTER → 2018-11-09 | Outpatient (REF) | payer MEDICARE ==
[2018-11-09 10:28] LABS: HEMATOCRIT 37.9 % (42.0-52.0); HEMOGLOBIN 12.3 g/dl (13.5-17.5); MEAN CORPUSCULAR HEMOGLOBIN 27.1 pg (27.0-33.0); MEAN CORPUSCULAR HGB CONC 32.5 g/dl (32.0-36.5); MEAN CORPUSCULAR VOLUME 83.5 fl (80.0-96.0); PLATELET COUNT, AUTOMATED 204 10^3/uL (150-450); RED BLOOD COUNT 4.54 10^6/uL (4.30-6.10)
[2018-11-09 11:02] LABS: BLOOD UREA NITROGEN 12 MG/DL (7-18); CALCIUM LEVEL 8.6 MG/DL (8.8-10.2); CARBON DIOXIDE LEVEL 24 MEQ/L (21-32); CHLORIDE LEVEL 101 MEQ/L (98-107); CREATININE FOR GFR 0.74 MG/DL (0.70-1.30); GLOMERULAR FILTRATION RATE > 60.0 (>35); GLUCOSE, FASTING 95 MG/DL (70-100); POTASSIUM SERUM 3.7 MEQ/L (3.5-5.1); SODIUM LEVEL 135 MEQ/L (136-145)
== END ==
PROVIDERS: ATTEND Internal Medicine
DX: K92.2 Gastrointestinal hemorrhage, unspecified (principal)

== ENCOUNTER → 2018-11-15 | Outpatient (REF) | payer MEDICARE ==
[2018-11-15 10:58] LABS: HEMOGLOBIN A1c 7.9 %
== END ==
PROVIDERS: ATTEND Internal Medicine
DX: E11.9 Type 2 diabetes mellitus without complications (principal); Z79.899 Other long term (current) drug therapy

== ENCOUNTER → 2018-12-06 | Outpatient (REF) | payer MEDICARE ==
[2018-12-06 09:04] LABS: HEMATOCRIT 39.9 % (42.0-52.0); HEMOGLOBIN 13.2 g/dl (13.5-17.5); MEAN CORPUSCULAR HEMOGLOBIN 26.5 pg (27.0-33.0); MEAN CORPUSCULAR HGB CONC 33.1 g/dl (32.0-36.5); MEAN CORPUSCULAR VOLUME 80.1 fl (80.0-96.0); PLATELET COUNT, AUTOMATED 204 10^3/uL (150-450); RED BLOOD COUNT 4.98 10^6/uL (4.30-6.10)
[2018-12-06 09:31] LABS: BLOOD UREA NITROGEN 13 MG/DL (7-18); CALCIUM LEVEL 8.9 MG/DL (8.8-10.2); CARBON DIOXIDE LEVEL 26 MEQ/L (21-32); CHLORIDE LEVEL 103 MEQ/L (98-107); CREATININE FOR GFR 0.77 MG/DL (0.70-1.30); GLOMERULAR FILTRATION RATE > 60.0 (>35); GLUCOSE, FASTING 109 MG/DL (70-100); POTASSIUM SERUM 4.1 MEQ/L (3.5-5.1); SODIUM LEVEL 137 MEQ/L (136-145)
== END ==
PROVIDERS: ATTEND Internal Medicine
DX: E11.9 Type 2 diabetes mellitus without complications (principal)

== ENCOUNTER 2018-12-25 20:43 | Inpatient (IN) | payer MEDICARE ==
[~2018-12-25] VITALS: Ht 175.3 cm; Wt 64.2 kg
[~2018-12-25 20:43] MED LIST changes: -/PANT40TA; -/TAMS4CA; -/WARF25TA; -/WARF3TA; -/WARF4TA; +COUM1TAB14; +COUM1TAB18; +COUM1TAB19; +FLOM0.4C39; +PROT1TAB2
[2018-12-25] MEDS ORDERED: CARD180C4 PO (21:24)
[2018-12-25] MEDS ORDERED: ENEMENE PR (21:40)
[2018-12-25] MEDS ORDERED: SENN-83 PO (21:40)
[2018-12-25] MEDS ORDERED: MILKSUS21 PO (21:40)
[2018-12-25] MEDS ORDERED: MIRA3350 PO (21:40)
[2018-12-25] MEDS ORDERED: ARTI99.0 OD (21:44)
[2018-12-25] MEDS ORDERED: ARTI99.0 OU (21:44)
[2018-12-25 22:16] LABS: BASO % 0.3 % (0.0-1.0); EOS # 0.1 10^3/uL (0.0-0.50); EOS % 0.9 % (0.0-3.0); HEMATOCRIT 39.2 % (42.0-52.0); HEMOGLOBIN 12.8 g/dl (13.5-17.5); LYMPH # 1.5 10^3/uL (1.5-4.5); LYMPH % 9.9 % (24.0-44.0); MEAN CORPUSCULAR HEMOGLOBIN 26.2 pg (27.0-33.0); MEAN CORPUSCULAR HGB CONC 32.7 g/dl (32.0-36.5); MEAN CORPUSCULAR VOLUME 80.2 fl (80.0-96.0); MONO # 1.2 10^3/uL (0.0-0.8); MONO % 8.1 % (0.0-5.0); NEUTROPHILS # 11.8 10^3/uL (1.8-7.7); NEUTROPHILS % 80.5 % (36.0-66.0); PLATELET COUNT, AUTOMATED 217 10^3/uL (150-450); RED BLOOD COUNT 4.89 10^6/uL (4.30-6.10); WHITE BLOOD COUNT 14.7 10^3/uL (4.0-10.0)
--- NOTE | 2018-12-25 22:25 | REPVR ---
EXAM: CT Head Without Contrast EXAM DATE/TIME: 12/25/2018 9:16 PM CLINICAL HISTORY: 83 years old, male; Injury or trauma; Fall; Additional info: Fall, blood thinner TECHNIQUE: Imaging protocol: Axial computed tomography images of the head/brain without contrast. Radiation optimization: All CT scans at this facility use at least one of these dose optimization techniques: automated exposure control; mA and/or kV adjustment per patient size (includes targeted exams where dose is matched to clinical indication); or iterative reconstruction. COMPARISON: No relevant prior studies available. FINDINGS: There are no intra-or extra-axial hemorrhages or fluid collections. There is no mass effect or midline shift. Ventricles are symmetrical and moderately dilated with associated cortical volume loss consistent with generalized atrophy. Moderate chronic ischemic changes in the periventricular deep white matter. Atherosclerotic changes within intracranial arteries. There are no focal parenchymal abnormalities. No calvarial fractures. IMPRESSION: Moderate generalized atrophy and chronic ischemic changes. No acute intracranial process. No intracranial hemorrhage. Electronically signed by: Jamie Castaneda On 12/25/2018 22:24:33 PM
--- NOTE | 2018-12-25 22:26 | REPVR ---
EXAM: CT Cervical Spine Without Contrast EXAM DATE/TIME: 12/25/2018 9:16 PM CLINICAL HISTORY: 83 years old, male; Injury or trauma; Fall; Initial encounter; Blunt trauma; Additional info: Fall, blood thinner TECHNIQUE: Imaging protocol: Axial computed tomography images of the cervical spine without intravenous contrast. Coronal and sagittal reformatted images were created and reviewed. Radiation optimization: All CT scans at this facility use at least one of these dose optimization techniques: automated exposure control; mA and/or kV adjustment per patient size (includes targeted exams where dose is matched to clinical indication); or iterative reconstruction. COMPARISON: XA Cookie Swallow Mod.Ba Swallow 05/25/2018 11:27 AM FINDINGS: On sagittal sequences, there is normal cervical lordosis. Cervical vertebral body heights are maintained. Moderate disc space narrowing with degenerative anterior and posterior osteophyte formation, greatest at C4-C5, C5-C6 and C6-C7. There is no AP malalignment. No prevertebral soft tissue swelling. Posterior elements and facets are intact. Mild facet hypertrophic changes. On axial sequences, intact neural rings are identified from C1-T1. No evidence of acute fracture. Visualized lung apices are clear. IMPRESSION: Degenerative changes as described above. No acute fracture or traumatic AP malalignment within the cervical spine. Electronically signed by: Jamie Castaneda On 12/25/2018 22:26:27 PM
[2018-12-25] MEDS ORDERED: CARVedilol 3.125 MG TAB As Ordered ONE (22:28)
[2018-12-25] MEDS ORDERED: CARVedilol 3.125 MG TAB PO ONE (22:30)
--- NOTE | 2018-12-25 22:31 | REPVR ---
EXAM: CT Chest Without Contrast EXAM DATE/TIME: 12/25/2018 9:16 PM CLINICAL HISTORY: 83 years old, male; Injury or trauma; Fall; Initial encounter; Concussion /head injury; Additional info: Fall, blood thinner TECHNIQUE: Imaging protocol: Axial computed tomography images of the chest without intravenous contrast. Coronal and sagittal reformatted images were created and reviewed. 3D rendering: MIP reconstructed images were created and reviewed. Radiation optimization: All CT scans at this facility use at least one of these dose optimization techniques: automated exposure control; mA and/or kV adjustment per patient size (includes targeted exams where dose is matched to clinical indication); or iterative reconstruction. COMPARISON: CR Chest, 2 view PA, Lat 05/25/2018 3:55 PM FINDINGS: There is a small to moderate hyperdense right pleural effusion likely consistent with hemothorax. This measures up to 2 cm in thickness. There is a mildly displaced fracture of the adjacent posterior right 10th rib. Moderately displaced fracture of the adjacent posterior lateral right ninth rib. Mildly displaced fracture of the lateral right eighth rib. Lungs are otherwise clear. No left pleural effusion. No evidence of pneumothorax. Mediastinal structures are grossly normal. Atherosclerotic changes of the aortic arch and coronary arteries. No evidence of thoracic aortic injury on this unenhanced examination. No evidence of displaced rib fractures within the left hemithorax. Thoracic spine and sternum are intact. Within the upper abdomen, there appears to be at least moderate fecal stasis in the transverse colon. Upper abdominal solid organs are otherwise unremarkable IMPRESSION: Small to moderate right hemothorax with mildly displaced fractures of the right lateral eighth, posterior lateral right ninth and posterior right 10th ribs. No evidence of pneumothorax. No other acute thoracic process. Moderate fecal stasis in the visualized transverse colon. Electronically signed by: Jamie Castaneda On 12/25/2018 22:30:58 PM
[2018-12-25 22:34] LABS: INR 1.6; PARTIAL THROMBOPLASTIN TIME 38.3 SECONDS (25.4-37.6); PROTHROMBIN TIME 19.3 SECONDS (12.1-14.4)
[2018-12-25 22:45] LABS: ALBUMIN 3.3 GM/DL (3.2-5.2); ALT/SGPT 13 U/L (12-78); AMYLASE 32 U/L (25-115); BILIRUBIN,DIRECT 0.2 MG/DL (0.0-0.2); BILIRUBIN,TOTAL 0.4 MG/DL (0.2-1.0); BLOOD UREA NITROGEN 16 MG/DL (7-18); CALCIUM LEVEL 8.5 MG/DL (8.8-10.2); CARBON DIOXIDE LEVEL 26 MEQ/L (21-32); CHLORIDE LEVEL 101 MEQ/L (98-107); CREATININE FOR GFR 0.96 MG/DL (0.70-1.30); GLOMERULAR FILTRATION RATE > 60.0 (>35); GLUCOSE, FASTING 198 MG/DL (70-100); LIPASE 62 U/L (73-393); POTASSIUM SERUM 4.1 MEQ/L (3.5-5.1); SODIUM LEVEL 136 MEQ/L (136-145); TOTAL PROTEIN 6.9 GM/DL (6.4-8.2)
[2018-12-25] MEDS ORDERED: BISACODYL 10 MG SUPP PR PRN (23:30)
[2018-12-25] MEDS ORDERED: GLUCOSE 4 GM CHEW TABLET PO PRN (23:30)
[2018-12-25] MEDS ORDERED: MORPHINE 4 MG/ML 1ML VIAL/SYRINGE (J2270) IV PRN ×2 (23:30)
[2018-12-25] MEDS ORDERED: GLUCAGON FOR INJ 1 MG VIAL (J1610) SC PRN (23:30)
[2018-12-25] MEDS ORDERED: DEXTROSE 50% 50 ML SYRINGE IV PRN (23:30)
[2018-12-25] MEDS ORDERED: MORPHINE 2 MG/ML 1ML SYRINGE (J2270) As Ordered ONE (23:58)
[2018-12-26] MEDS ORDERED: NS 700 ML IV SCH
[2018-12-26] MEDS: ACETAMINOPHEN TAB 650MG DOSE (2X325MG) PO PRN ×2 (00:02→06:34)
[2018-12-26] MEDS: MORPHINE 4 MG/ML 1ML VIAL/SYRINGE (J2270) IV PRN ×3 (00:16→16:29)
--- NOTE | 2018-12-26 01:42 | HPEPDOC ---
General Date of Admission Dec 25, 2018 at 23:20 Chief Complaint The patient is a 83-year-old male admitted with a reason for visit of Hemothorax Right. 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 The patient states that he walks with a rolling walker with assistance at baseline. However, he sustained a fall on his right side today and came to the ER for further evaluation. He denies any complaints of any prodromal symptoms such as fevers, chills, lightheadedness, dizziness, chest pain, palpitations, abdominal pain, or any nausea/vomiting/diarrhea. In the ER, the patient was noted to have right-sided rib fractures and a small to moderate sized hemothorax on the right. Thoracic surgery was contacted in the ER and recommended admission to the hospitalist service for further monitoring. Home Medications Scheduled Apixaban (Eliquis) 5 Mg Tab, 5 MG PO BID, (Reported) Atorvastatin Calcium (Atorvastatin Calcium) 10 Mg Tab, 10 MG PO QHS, (Reported) Carvedilol (Carvedilol) 3.125 Mg Tab, 3.125 MG PO BID, (Reported) Diltiazem Hcl (Cardizem Cd) 180 Mg Cap.er.24h, 180 MG PO DAILY, (Reported) Fluoxetine Hcl (Fluoxetine HCl) 20 Mg Cap, 20 MG PO QAM, (Reported) Insulin Detemir (Levemir) 1 Units/0.01 Ml Susp, 12 UNITS SC DAILY, (Reported) 0600 Lidocaine (Lidocaine) 4 % Cre, 1 DOSE TOP TID, (Reported) APPLY TO AREA OF PAIN Metformin HCl (Metformin HCl) 500 Mg Tab, 500 MG PO BID, (Reported) Polyethylene Glycol 3350 (Miralax) 119 Gm Powder, 17 GM PO DAILY, (Reported) dilute in 8 ounces of water or juice Polyvinyl Alcohol (Artificial Tears) 15 Ml Drops, 1 DROP OU BID, (Reported) Potassium Chloride (Klor-Con M20) 20 Meq Tabcr, 20 MEQ PO BID, (Reported) Sennosides (Senna) 8.6 Mg Tablet, 17.2 MG PO BID, (Reported) Tamsulosin HCl (Flomax) 0.4 Mg Cap, 0.4 MG PO DAILY, (Reported) Vit A/Vit C/Vit E/Zinc/Copper (Preservision Areds Softgel) 1 Cap Cap, 1 CAP PO BID, (Reported) Scheduled PRN Acetaminophen (Acetaminophen) 325 Mg Tab, 650 MG PO Q4H PRN for PAIN / FEVER, (Reported) Bisacodyl (Bisacodyl) 10 Mg Sup, 10 MG GA DAILY PRN for CONSTIPATION, (Reported) Magnesium Hydroxide (Milk of Magnesia) 400 Mg/5 Ml Oral.susp, 1,200 MG PO DAILY PRN for CONSTIPATION, (Reported) Polyvinyl Alcohol (Artificial Tears) 15 Ml Drops, 1 DROP OD BID PRN for DRY EYES, (Reported) Sodium Phosphate,Laurel-Dibasic (Enema) 133 Ml Enema, 1 NGUYỄN GA DAILY PRN for CONSTIPATION, (Reported) Allergies Coded Allergies: oxycodone (Verified Adverse Reaction, Intermediate, NAUSEA,DIZZINESSWEAKNESS,HALLUCINATIONS, 12/25/18) hydrocodone (Verified Adverse Reaction, Mild, HALLUCINATIONS, 12/25/18) Past Medical History Medical History As noted in HPI Surgical History 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 Cataract removal. Arthrocentesis of the knees. Synovectomy. Social History * Smoker: Denies Alcohol: Denies Drugs: denies Review of Systems Other systems 10 point review of systems negative unless otherwise specified in HPI. Physical Examination General Exam: Positive: Alert, Cooperative, No Acute Distress ENT Exam: Positive: Atraumatic, Mucous membr. moist/pink Neck Exam: Negative: JVD Chest Exam: Positive: Clear to auscultation, Normal air movement Heart Exam: Positive: Rate Normal, Normal S1, Normal S2 Abdomen Exam: Positive: Soft; Negative: Tenderness Extremity Exam: Negative: Tenderness, Swelling Vital Signs Vital Signs Date Time Temp Pulse Resp B/P (MAP) Pulse Ox O2 Delivery O2 Flow Rate FiO2 12/26/18 00:16 20 97 12/25/18 23:30 111 151/119 (130) Room Air 12/25/18 22:16 95 12/25/18 20:52 98.2 Laboratory Data Labs 24H Laboratory Tests 2 12/25/18 22:06: Immature Granulocyte % (Auto) 0.3, White Blood Count 14.7H, Red Blood Count 4.89, Hemoglobin 12.8L, Hematocrit 39.2L, Mean Corpuscular Volume 80.2, Mean Corpuscular Hemoglobin 26.2L, Mean Corpuscular Hemoglobin Concent 32.7, Red Cell Distribution Width 16.8H, Platelet Count 217, Neutrophils (%) (Auto) 80.5H, Lymphocytes (%) (Auto) 9.9L, Monocytes (%) (Auto) 8.1H, Eosinophils (%) (Auto) 0.9, Basophils (%) (Auto) 0.3, Neutrophils # (Auto) 11.8H, Lymphocytes # (Auto) 1.5, Monocytes # (Auto) 1.2H, Eosinophils # (Auto) 0.1, Basophils # (Auto) 0.0, Nucleated Red Blood Cells % (auto) 0.0, Prothrombin Time 19.3H, Prothromb Time International Ratio 1.60, Activated Partial Thromboplast Time 38.3H 12/25/18 22:07: Anion Gap 9, Glomerular Filtration Rate > 60.0, Lactic Acid Level 2.4*H, Calcium Level 8.5L, Aspartate Amino Transf (AST/SGOT) 10, Alanine Aminotransferase (AL T/SGPT) 13, Alkaline Phosphatase 94, Total Bilirubin 0.4, Direct Bilirubin 0.2, Total Protein 6.9, Albumin 3.3, Albumin/Globulin Ratio 0.92L, Amylase Level 32, Lipase 62L CBC/BMP Laboratory Tests 12/25/18 22:06 Red Blood Count 4.89, Mean Corpuscular Volume 80.2, Mean Corpuscular Hemoglobin 26.2 L, Mean Corpuscular Hemoglobin Concent 32.7, Red Cell Distribution Width 16.8 H, Neutrophils (%) (Auto) 80.5 H, Lymphocytes (%) (Auto) 9.9 L, Monocytes (%) (Auto) 8.1 H, Eosinophils (%) (Auto) 0.9, Basophils (%) (Auto) 0.3, Neutrophils # (Auto) 11.8 H, Lymphocytes # (Auto) 1.5, Monocytes # (Auto) 1.2 H, Eosinophils # (Auto) 0.1, Basophils # (Auto) 0.0 12/25/18 22:07 Plan / VTE VTE Prophylaxis Ordered?: Yes Plan Plan Mildly Displaced Right Rib #8-10 Fracture, Right Sided Hemothorax 2/2 Mechanical Fall No evidence of pneumothorax on CT Chest Thoracic Surgery contacted by ER provider-->No indication for chest tube at this time, Dr. Villaseñor will see the patient in the AM Repeat CXR ordered for the AM Hgb stable Pain control ordered We will cont to monitor Hx of Atrial Fibrillation on Eliquis Patient on Eliquis--he was recently admitted for a GI Bleed in 08/2018. His course is now further complicated by rib fractures and a hemothorax after sustaining a mechanical fall. 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
[2018-12-26] MEDS: HumaLOG INSULIN (NovoLOG) PER UNIT SC SCH ×5 (07:30→21:00)
[2018-12-26 07:42] LABS: HEMATOCRIT 36.8 % (42.0-52.0); HEMOGLOBIN 11.9 g/dl (13.5-17.5); MEAN CORPUSCULAR HEMOGLOBIN 25.6 pg (27.0-33.0); MEAN CORPUSCULAR HGB CONC 32.3 g/dl (32.0-36.5); MEAN CORPUSCULAR VOLUME 79.1 fl (80.0-96.0); PLATELET COUNT, AUTOMATED 209 10^3/uL (150-450); RED BLOOD COUNT 4.65 10^6/uL (4.30-6.10); WHITE BLOOD COUNT 12.2 10^3/uL (4.0-10.0)
--- NOTE | 2018-12-26 08:01 | REP ---
Chest x-ray: Two views. History: Hemothorax. Rib fractures. Comparison study: 10:07 p.m. film same date. Findings: There is no evidence of pneumothorax or definite hydrothorax. . Pleural angles are sharp the frontal view. One of the posterior pleural angles shows hazy opacity and is poorly defined on the lateral radiograph. There may be a small amount of unilateral pleural fluid. There is mild plate-like atelectasis in the right base . Heart is not mildly enlarged. The aorta somewhat tortuous. There is a slightly displaced fracture of the right lateral eighth rib. There are degenerative changes in the thoracic spine. Impression: Cardiomegaly. Right-sided rib fracture. Mild plate-like atelectasis right base. Electronically Signed by Scott Kyle MD 12/26/2018 07:54 A
--- NOTE | 2018-12-26 08:05 | REP ---
Portable chest x-ray: Single view. History: Trauma. Comparison study: May 25, 2018. Findings: The there is no evidence of pneumothorax or hydrothorax. Mediastinum is not traumatically widened. The thoracic aorta is somewhat tortuous. Heart is mildly prominent. No infiltrate is seen. There is plate-like atelectasis in the right base. There is a mildly displaced fracture of the right lateral eighth rib. No other traumatic bony abnormality. Impression: Plate-like atelectasis right base. Right lateral eighth rib fracture. Mild cardiomegaly Electronically Signed by Scott Kyle MD 12/26/2018 07:57 A
[2018-12-26 08:09] LABS: ALT/SGPT 11 U/L (12-78); BILIRUBIN,TOTAL 0.6 MG/DL (0.2-1.0); BLOOD UREA NITROGEN 14 MG/DL (7-18); CALCIUM LEVEL 8.4 MG/DL (8.8-10.2); CARBON DIOXIDE LEVEL 26 MEQ/L (21-32); CHLORIDE LEVEL 105 MEQ/L (98-107); CREATININE FOR GFR 0.74 MG/DL (0.70-1.30); GLOMERULAR FILTRATION RATE > 60.0 (>35); GLUCOSE, FASTING 111 MG/DL (70-100); MAGNESIUM LEVEL 1.5 MG/DL (1.8-2.4); POTASSIUM SERUM 3.8 MEQ/L (3.5-5.1); SODIUM LEVEL 136 MEQ/L (136-145); TOTAL PROTEIN 6.6 GM/DL (6.4-8.2)
--- NOTE | 2018-12-26 08:14 | REP ---
Chest x-ray: Two views 07:39 a.m. film. History: Rib fractures. Hemothorax. Comparison study 11:10 p.m. on the previous day. Findings: EKG monitoring electrodes are seen. A heart is mildly prominent. There is no evidence of pneumothorax. There is a displaced right lateral eighth rib fracture again noted. No definite hemothorax is seen. Pulmonary vasculature is not increased. The aorta somewhat tortuous. Impression: Right lateral eighth rib fracture. No definite pleural effusion or pneumothorax. Electronically Signed by Scott Kyle MD 12/26/2018 08:05 A
[2018-12-26] MEDS: diltiaZEM **CD** 180 MG CAP PO SCH (09:35)
[2018-12-26] MEDS: CARVedilol 3.125 MG TAB PO SCH ×2 (09:36→20:29)
[2018-12-26] MEDS: FLUoxetine 20 MG CAP PO SCH (09:36)
[2018-12-26] MEDS: TAMSULOSIN 0.4 MG CAP PO SCH (09:36)
[2018-12-26] MEDS ORDERED: MOM 30ML SUSPENSION UDC PO PRN (13:00)
[2018-12-26] MEDS ORDERED: MIRALAX *UNIT DOSE* 17GM PACKET PO PRN (13:00)
[2018-12-26] MEDS ORDERED: SENOKOT S TAB PO PRN (13:00)
--- NOTE | 2018-12-26 14:42 | IPNPDOC ---
Date Seen The patient was seen on 12/26/18. Progress Note SUBJECTIVE: repeat 12/26/18 cxr: no hemothorax. no pleural effusion. pt denies any sob, chest pain, pressure, tightness. c/o rib pain especially w movement s/p morphine. no other issues per RN. OBJECTIVE PHYSICAL EXAMINATION: VITAL SIGNS: Please see below. VITALS PLS SEE BELOW General Exam: Positive: Alert, Cooperative, No Acute Distress ENT Exam: Positive: Atraumatic, Mucous membr. moist/pink Neck Exam: Negative: JVD Chest Exam: Positive: Clear to auscultation, Normal air movement Heart Exam: Positive: Rate Normal, Normal S1, Normal S2 Abdomen Exam: Positive: Soft; Negative: Tenderness Extremity Exam: Negative: Tenderness, Swelling LABORATORY DATA, IMAGING STUDIES, MICROBIOLOGY: Please see below. CXR 12/26/18: EKG monitoring electrodes are seen. A heart is mildly prominent. There is no evidence of pneumothorax. There is a displaced right lateral eighth rib fracture again noted. No definite hemothorax is seen. Pulmonary vasculature is not increased. The aorta somewhat tortuous. Impression:Right lateral eighth rib fracture. No definite pleural effusion or pneumothorax. 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 The patient states that he walks w ith a rolling walker with assistance at baseline. However, he sustained a fall on his right side today and came to the ER for further evaluation. He denies any complaints of any prodromal symptoms such as fevers, chills, lightheadedness, dizziness, chest pain, palpitations, abdominal pain, or any na usea/vomiting/diarrhea. In the ER, the patient was noted to have right-sided rib fractures and a small to moderate sized hemothorax on the right. Thoracic surgery was contacted in the ER and recommended admission to the hospitalist service for further monitoring. Mildly Displaced Right Rib #8-10 Fracture, Right Sided Hemothorax 2/2 Mechanical Fall No evidence of pneumothorax on CT Chest Thoracic Surgery contacted by ER provider-->No indication for chest tube at this time, Dr. Villaseñor will see the patient in the AM Repeat CXR ordered for the AM Hgb stable Pain control ordered We will cont to monitor Hx of Atrial Fibrillation on Eliquis Patient on Eliquis--he was recently admitted for a GI Bleed in 08/2018. His course is now further complicated by rib fractures and a hemothorax after sust aining a mechanical fall. 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 DVT Prophylaxis SCDs/TEDs VS, I&O, 24H, Fishbone Vital Signs/I&O Vital Signs Date Time Temp Pulse Resp B/P (MAP) Pulse Ox O2 Delivery O2 Flow Rate FiO2 12/26/18 09:36 106 154/94 12/26/18 09:15 18 98 Room Air 12/25/18 22:16 95 12/25/18 20:52 98.2 I&O- Last 24 Hours up to 6 AM 12/26/18 06:00 Output Total 300 ml Balance -300 ml Laboratory Data 24H LABS Laboratory Tests 2 12/25/18 22:06: Immature Granulocyte % (Auto) 0.3, White Blood Count 14.7H, Red Blood Count 4.89, Hemoglobin 12.8L, Hematocrit 39.2L, Mean Corpuscular Volume 80.2, Mean Corpuscular Hemoglobin 26.2L, Mean Corpuscular Hemoglobin Concent 32.7, Red Cell Distribution Width 16.8H, Platelet Count 217, Neutrophils (%) (Auto) 80.5H, Lymphocytes (%) (Auto) 9.9L, Monocytes (%) (Auto) 8.1H, Eosinophils (%) (Auto) 0.9, Basophils (%) (Auto) 0.3, Neutrophils # (Auto) 11.8H, Lymphocytes # (Auto) 1.5, Monocytes # (Auto) 1.2H, Eosinophils # (Auto) 0.1, Basophils # (Auto) 0.0, Nucleated Red Blood Cells % (auto) 0.0, Prothrombin Time 19.3H, Prothromb Time International Ratio 1.60, Activated Partial Thromboplast Time 38.3H 12/25/18 22:07: Anion Gap 9, Glomerular Filtration Rate > 60.0, Lactic Acid Level 2.4*H, Calcium Level 8.5L, Aspartate Amino Transf (AST/SGOT) 10, Alanine Aminotransferase (ALT/SGPT) 13, Alkaline Phosphatase 94, Total Bilirubin 0.4, Direct Bilirubin 0.2, Total Protein 6.9, Albumin 3.3, Albumin/Globulin Ratio 0.92L, Amylase Level 32, Lipase 62L 12/26/18 07:18: Nucleated Red Blood Cells % (auto) 0.0, Anion Gap 5L, Glomerular Filtration Rate > 60.0, Calcium Level 8.4L, Aspartate Amino Transf (AST/SGOT) 8, Alanine Aminotransferase (ALT/SGPT) 11L, Alkaline Phosphatase 83, Total Bilirubin 0.6, Total Protein 6.6, Albumin 3.0L, Albumin/Globulin Ratio 0.83L, Lactic Acid Followup at 4 Hours 1.1, Blood Urea Nitrogen 14, Creatinine 0.74, Sodium Level 136, Potassium Level 3.8, Chloride Level 105, Carbon Dioxide Level 26, Magnesium Level 1.5L CBC/BMP Laboratory Tests 12/25/18 22:06 Red Blood Count 4.89, Mean Corpuscular Volume 80.2, Mean Corpuscular Hemoglobin 26.2 L, Mean Corpuscular Hemoglobin Concent 32.7, Red Cell Distribution Width 16.8 H, Neutrophils (%) (Auto) 80.5 H, Lymphocytes (%) (Auto) 9.9 L, Monocytes (%) (Auto) 8.1 H, Eosinophils (%) (Auto) 0.9, Basophils (%) (Auto) 0.3, Neutrophils # (Auto) 11.8 H, Lymphocytes # (Auto) 1.5, Monocytes # (Auto) 1.2 H, Eosinophils # (Auto) 0.1, Basophils # (Auto) 0.0 12/25/18 22:07 12/26/18 07:18 Red Blood Count 4.65, Mean Corpuscular Volume 79.1 L, Mean Corpuscular Hemoglobin 25.6 L, Mean Corpuscular Hemoglobin Concent 32.3, Red Cell Distrib ution Width 17.0 H, Calcium Level 8.4 L, Aspartate Amino Transf (AST/SGOT) 8, Alanine Aminotransferase (ALT/SGPT) 11 L, Alkaline Phosphatase 83, Total Bilirubin 0.6, Total Protein 6.6, Albumin 3.0 L DALJIT ALMANZA MD Dec 26, 2018 11:19
[2018-12-26 17:52] VITALS: BP 153/95
--- NOTE | 2018-12-26 17:57 | CR ---
DATE OF CONSULTATION: 12/26/2018 The patient is seen at the request of the emergency room, Dr. Martinez, and the hospitalist service for multiple fractured ribs on the right side. HISTORY OF PRESENT ILLNESS: The patient is an 83-year-old white male who is a resident at [facility]; however, who went home for Easter dinner. Upon ascending the porch, he lost his balance and slid off the porch about 2-1/2 feet, according to his . His had the harness on him and broke his fall. He complains of pain on his right side. He does not particularly complain of shortness of breath at this point in time. In the emergency room last night, CT scan was done, which found three fractured ribs, nondisplaced. First he refused to take pain medications, but now he is. He is marginally ambulatory, walks with a cane. 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 He denies fever, chills, sweats or dizziness. There is no prior chest pain and no prior history of myocardial infarctions. He does have atrial flutter. He did not lose consciousness and this is more of a trip than a syncopal episode. PAST MEDICAL HISTORY: 1. Hypertension. 2. CVA. 3. Dyslipidemia. 4. Atrial fibrillation on Eliquis. 5. Diabetes. 6. Hypothyroidism. 7. Coronary artery disease. PAST SURGICAL HISTORY: 1. Cataract removal. 2. Bilateral knee replacements. MEDICATIONS: At home: - Eliquis 5 mg by mouth twice a day - atorvastatin 10 mg at night - carvedilol 3.125 mg twice a day - diltiazem 180 mg every 24 hours - fluoxetine 20 mg in the morning - Levemir 12 units subcutaneously daily - metformin 500 mg twice a day - potassium chloride 20 mEq twice a day - Flomax 0.4 mg daily - various vitamins and stool softeners ALLERGIES: OXYCODONE and HYDROCODONE, which give him hallucinations. FAMILY HISTORY: Not pertinent to the acute situation. HABITS: Denies smoking, alcohol or illicit drugs. OCCUPATIONAL HISTORY: Former grinder operator surface tool. REVIEW OF SYSTEMS: EYES: Without diplopia. Without transmonocular blindness. Has had cataracts and uses artificial tears. Does have occasional tunnel vision if he looks to the right. NOSE: Without epistaxis. PULMONARY: See history of present illness. CARDIOVASCULAR: Without myocardial infarction but with atrial fibrillation/flutter. GASTROINTESTINAL: Without nausea or vomiting. NEUROLOGIC: See history of present illness. Complete stroke leaving him with right sided hemiparesis. PSYCHIATRIC: Without pathological anxieties, depression or other psychoses. PHYSICAL EXAMINATION: Well developed, chronically ill, white male in mild distress from chest discomfort in the back. VITAL SIGNS: Temperature 98.2, taken last night at 8 o'clock. Pulse 106 and in atrial fibrillation. Respiratory rate of 20 without the use of accessory muscles, who is 96% saturated on room air. His blood pressure is 148/95. EYES: Pupils are equal, round and reactive to light. Extraocular motors intact. Sclerae nonicteric. MOUTH: Shows mucous membranes are pink and moist. Lips and commissures without lesions. There is no thrush. NECK: Supple. There is no jugular venous distention (JVD). No subcutaneous emphysema. Trachea is midline. LUNGS: Show equal breath sounds on either side. Percussion note is full to the diaphragm. He has some crackles on the right lower hemithorax. There is no ecchymosis on his skin overlying the rib fractures. CARDIAC: Exam is without murmurs, clicks, gallops or rubs. I cannot feel his point of maximum impulse (PMI). S1, S2 are normal. ABDOMEN: Soft, nontender. Bowel sounds positive. There is no hepatosplenomegaly. There is no costovertebral angle tenderness except that referable to his rib fractures on the right. EXTREMITIES: No pretibial edema. No calf tenderness. No differential swelling of the upper extremities. SKIN: Warm, dry and perfused without cyanosis or mottling, including that of the nailbeds and knees. NEUROLOGIC: Shows II-XII grossly intact. His entire right sided is hemiparetic. Gait, of course, is not tested. PSYCHIATRIC: Shows him to be awake and alert, oriented times three and conversational. INVESTIGATIONS: His white count today is 12.2, down from 14.7 last night with a hemoglobin and hematocrit of 11.9 and 36.8. This is slightly down from yesterday of 12.8 and 39.2. Platelet count is 209 and stable. Differential showed 80% neutrophils, 9% lymphocytes, 8% monocytes. There are no immature forms. No toxic granulations. His chemistries today show normal electrolytes with a BUN and creatinine of 14 and 0.74 with a glucose of 111 and calcium of 8.4 with a corresponding albumin of 3.0. His PT and INR are 15.3 and 1.6, respectively, with a PTT of 38.3 seconds. His chest x-ray shows his lung fully expanded to the chest wall. There is no pneumothorax and there is no subcutaneous emphysema. Costophrenic angles are sharp. Chest CT done yesterday in the emergency room shows ribs #10, 9 and 8 with fractures, which are essentially nondisplaced, posterolaterally. There is no pneumothorax. There is a small pleural collection, most likely blood from his rib fractures posteriorly. I do not see emphysematous changes. I see no masses. There is no pericardial effusion. He has coronary calcifications in the left anterior ascending coronary artery. IMPRESSION: 1. Multiple rib fractures of 8, 9 and 10, nondisplaced. 2. Small hemothorax. 3. Atrial fibrillation, on Eliquis. 4. Status post CVA with right sided hemiparesis. 5. Diabetes. 6. Hyperlipidemia. 7. Coronary artery disease. PLAN/DISCUSSION: The mainstay of his therapy is going to be pain control. He is on Eliquis so we are not going to be able to place an epidural and the actually does not want one. He will be moved up to the progressive care unit (PCU) with the need for physical therapy (PT) and may need occupational therapy (OT) rehabilitation. These rib fractures will heal, but with his age it will take approximately 12 weeks.
[2018-12-26 20:00] VITALS: BP 152/98
[2018-12-26] MEDS: ATORVASTATIN 10 MG TAB PO SCH (20:29)
[2018-12-27] VITALS (11 sets, daily range): BP systolic 125–185; BP diastolic 76–118
--- NOTE | 2018-12-27 01:07 | ECGEPIP ---
Stationary ECG Study [facility] - ED Test Date: 2018-12-25 Pat Name: SHANA DANIELS Department: Room: [place] [address] Gender: M Customer Care Team Coach: MOISÉS : 1935 Requested By: TRU Modi Order Number: [id number] Reading MD: Jaylen Francois Measurements Intervals Kelly Rate: 106 P: AL: 0 QRS: 2 QRSD: 93 T: 23 QT: 352 QTc: 469 Interpretive Statements ATRIAL FIBRILLATION WITH RAPID VENTRICULAR RESPONSE LOW QRS VOLTAGE IN EXTREMITY LEADS RATE CHANGE COMPARED TO 08/26/18 Electronically Signed On 12-27-2018 1:06:41 EDT by Jaylen Francois
[2018-12-27] MEDS: MORPHINE 4 MG/ML 1ML VIAL/SYRINGE (J2270) IV PRN ×2 (02:21→12:01)
[2018-12-27] MEDS ORDERED: MORPHINE 4 MG/ML 1ML VIAL/SYRINGE (J2270) IV ONE (05:00)
[2018-12-27 07:26] LABS: HEMATOCRIT 41.2 % (42.0-52.0); HEMOGLOBIN 13.1 g/dl (13.5-17.5); MEAN CORPUSCULAR HEMOGLOBIN 25.6 pg (27.0-33.0); MEAN CORPUSCULAR HGB CONC 31.8 g/dl (32.0-36.5); MEAN CORPUSCULAR VOLUME 80.5 fl (80.0-96.0); PLATELET COUNT, AUTOMATED 218 10^3/uL (150-450); RED BLOOD COUNT 5.12 10^6/uL (4.30-6.10); WHITE BLOOD COUNT 17.9 10^3/uL (4.0-10.0)
[2018-12-27 07:43] LABS: BLOOD UREA NITROGEN 15 MG/DL (7-18); CALCIUM LEVEL 8.3 MG/DL (8.8-10.2); CARBON DIOXIDE LEVEL 21 MEQ/L (21-32); CHLORIDE LEVEL 102 MEQ/L (98-107); CREATININE FOR GFR 0.72 MG/DL (0.70-1.30); GLOMERULAR FILTRATION RATE > 60.0 (>35); GLUCOSE, FASTING 154 MG/DL (70-100); POTASSIUM SERUM 3.7 MEQ/L (3.5-5.1); SODIUM LEVEL 135 MEQ/L (136-145)
[2018-12-27] MEDS: HumaLOG INSULIN (NovoLOG) PER UNIT SC SCH ×4 (08:05→21:00)
[2018-12-27 08:11] LABS: MAGNESIUM LEVEL 1.5 MG/DL (1.8-2.4)
[2018-12-27] MEDS: FLUoxetine 20 MG CAP PO SCH (08:37)
[2018-12-27] MEDS: TAMSULOSIN 0.4 MG CAP PO SCH (08:38)
[2018-12-27] MEDS: diltiaZEM **CD** 180 MG CAP PO SCH (08:38)
[2018-12-27] MEDS: CARVedilol 3.125 MG TAB PO SCH ×2 (08:38→21:44)
--- NOTE | 2018-12-27 10:35 | REP ---
CHEST X-RAY: SITTING AP AND LATERAL VIEWS. HISTORY: Rib fracture. Hemothorax. COMPARISON STUDY: December 26, 2018 FINDINGS: The left lung is well inflated and clear. There is diffuse osteopenia. There is pleural opacity in the right base overlying the heart and posteriorly overlying the spine on the lateral radiograph consistent with pleural fluid. There are two visible rib fractures noted along the right lower lateral chest wall. Mediastinum is not traumatically widened. The thoracic aorta is somewhat tortuous. IMPRESSION: Pleural opacity right base posteriorly and medially consistent with the history of hemothorax. This opacity pattern is somewhat more prominent today than on December 25, 2018. Two right-sided rib fractures seen. No new infiltrate. Electronically Signed by Scott Kyle MD 12/27/2018 04:20 P
--- NOTE | 2018-12-27 12:22 | IPN ---
DATE: 12/27/2018 Mr. Hernández is feeling a bit groggy today. He is being given morphine IV for pain control. His pain is being fairly well controlled however. His vital signs show a T-max of 100.3 with a heart rate that ranges between 106 and 101. He had predominantly sinus rhythm. Respiratory rate of 18 to 20 without the use of accessory muscles and he is 97% saturated on 2 liters nasal cannula. His blood pressure is ranging between 138/88 to 165/109. His intake and output the past 24 hours has been recorded as 110 and 800 out for a negativity of 690 mL. He has taken in 450 mL this morning. On physical examination, he has rhonchi on either side, more on the right than the left. Percussion note is full to the diaphragm. Cardiac exam is without murmurs, clicks, gallops or rubs. I cannot feel his PMI. S1 and S2 are normal. Abdomen is soft and nontender. Bowel sounds are positive. There is no hepatomegaly. CVA tenderness was not tested. He is however tympanitic and distended. Extremities show no pretibial edema and no calf tenderness. No differential swelling of the upper extremities. Skin is warm, dry and perfused without cyanosis or mottling, including that of the nail beds and knees. Neck is supple. There is no jugular venous distention and no subcutaneous emphysema. Trachea is midline. Mouth shows his mucous membranes to be pink and moist. Lips and commissures without lesions. No thrush. Eyes show his pupils equal and reactive. Extraocular movements intact. Sclerae nonicteric. Neurologic shows II-XII intact along with gross motor and gross sensation intact. Gait is not tested. Psychiatric shows him to be awake, alert and oriented times three with appropriate mood and affect and conversational. His chest x-ray shows slight blunting of the right costophrenic angle with a sharp left costophrenic angle. There is no pneumothorax. Lung is fully expanded to the chest wall. There looks to be atelectasis of the right lower lobe. His hemoglobin and hematocrit are 13.1 and 41.2 with a white count of 17.9. Platelet count is 218. Chemistries show normal electrolytes with a BUN and creatinine of 15 and 0.72, a glucose of 154, and calcium of 8.3. Magnesium is 1.5. He had a listed allergy to HYDROCODONE and OXYCODONE and hence he is on morphine. With his normal BUN and creatinine, I have suggested we monitor that daily along with giving him Toradol every 6 hours 15 mg. He needs respiratory therapy and lung expansion and therefore I have ordered PEP and incentive spirometry. IMPRESSION: 1. Rib fractures 8, 9 and 10, nondisplaced. 2. Small hemothorax. 3. Atrial fibrillation on Eliquis. 4. Status post CVA with right sided hemiparesis. 5. Diabetes. 6. Hyperlipidemia. 7. Coronary artery disease. 8. Atelectasis right lower lobe. PLAN AND DISCUSSION: As noted above, I would add a nonsteroidal and monitor his creatinine carefully. He needs respiratory lung expansion. While he is on IV morphine, I would not ambulate him, but I would get him up and out of bed to a chair. The mainstay of his therapy is going to be pain control and lung expansion. I have transferred him to the medical-surgical unit.
[2018-12-27 15:43] LABS: C REACTIVE PROTEIN QUANTITATIV 7.81 MG/DL (0.00-0.30)
--- NOTE | 2018-12-27 16:42 | IPN ---
DATE: 12/27/2018 SUBJECTIVE: Patient is seen and examined in the room today. Patient's was also present during the encounter. During the encounter, patient has some signs of very minimal confusion. The stated it is not like patient at baseline. She is not sure whether it is medication induced or whether it could be some other cause. Pain is controlled. OBJECTIVE: VITAL SIGNS: Temperature 98.6, pulse 101, respiratory rate 19, blood pressure 132/88, pulse oximetry 97% with 2 liters nasal cannula. GENERAL: Patient is alert and awake, comfortable. HEENT: Normocephalic, atraumatic. Extraocular motors grossly intact. Wearing corrective lenses. CARDIOVASCULAR: Positive S1, S2, irregularly irregular, tachycardic. LUNGS: No wheezes, positive rhonchi bilaterally. ABDOMEN: Soft, nontender, bowel sounds present. EXTREMITIES: No significant edema appreciated. LABORATORY DATA: WBC 17.9, hemoglobin 13.1, hematocrit 41.2, platelet count 218, sodium 135, potassium 3.7, chloride 102, carbon dioxide 21, BUN 15, creatinine 0.72, GFR greater than 60, fasting glucose 154, calcium 8.3, magnesium 1.5. ASSESSMENT AND PLAN: 1. Small right-sided hemithorax. Dr. Villaseñro consulted. We appreciate his assistance. 2. Multiple right nondisplaced rib fractures. Continue pain medication adjustment as needed. 3. Altered mental status. During encounter, it seems patient is demonstrating signs of confusion. According to patient's , this is not patient's baseline. Patient did have an elevated white count. Will try to look for possible infectious causes. There is also a possibility that altered mental status may be due to morphine. Will continue to observe. 4. History of atrial fibrillation. On Coreg, on diltiazem. At home, patient was taking Eliquis. Due to hemithorax, Eliquis is on hold at this moment. 5. CVA with residual right-sided hemiparalysis. On Lipitor. Continue with physical therapy. Eliquis on hold. 6. Diabetes. On insulin sliding scale. On consistent carbohydrate diet. 7. Anxiety/depression. Continue Prozac. 8. History of gastrointestinal (GI) bleed with angioectasia. Colonoscopy in August 2018, at that time clip was placed. During that colonoscopy, patient was also noted to have diverticulosis in the descending colon and also nonbleeding internal and external hemorrhoids. No sign of active gastrointestinal (GI) bleeding at this moment. Continue to monitor. 9. Deep venous thrombosis (DVT) prophylaxis. Patient is on thromboembolism deterrents (TEDs) and compression. MTDD
[2018-12-27 17:49] LABS: ERYTHROCYTE SEDIMENTATION RATE 19 mm/hr (0-20)
[2018-12-27] MEDS: ATORVASTATIN 10 MG TAB PO SCH (21:44)
[2018-12-27] MEDS: MAGNESIUM OXIDE 400 MG TAB (MAG-OX) PO SCH (21:44)
[2018-12-28 04:00] VITALS: BP 141/91
[2018-12-28 05:57] LABS: HEMATOCRIT 34.4 % (42.0-52.0); HEMOGLOBIN 11.4 g/dl (13.5-17.5); MEAN CORPUSCULAR HEMOGLOBIN 25.9 pg (27.0-33.0); MEAN CORPUSCULAR HGB CONC 33.1 g/dl (32.0-36.5); PLATELET COUNT, AUTOMATED 210 10^3/uL (150-450); RED BLOOD COUNT 4.41 10^6/uL (4.30-6.10); WHITE BLOOD COUNT 16.1 10^3/uL (4.0-10.0)
[2018-12-28 06:13] LABS: BLOOD UREA NITROGEN 24 MG/DL (7-18); CALCIUM LEVEL 8.3 MG/DL (8.8-10.2); CARBON DIOXIDE LEVEL 24 MEQ/L (21-32); CHLORIDE LEVEL 101 MEQ/L (98-107); CREATININE FOR GFR 0.94 MG/DL (0.70-1.30); GLOMERULAR FILTRATION RATE > 60.0 (>35); GLUCOSE, FASTING 193 MG/DL (70-100); MAGNESIUM LEVEL 1.8 MG/DL (1.8-2.4); POTASSIUM SERUM 3.6 MEQ/L (3.5-5.1); SODIUM LEVEL 134 MEQ/L (136-145)
[2018-12-28] MEDS: HumaLOG INSULIN (NovoLOG) PER UNIT SC SCH ×4 (07:30→21:18)
[2018-12-28 08:00] VITALS: BP 133/85
--- NOTE | 2018-12-28 08:08 | REP ---
Chest x-ray: Two views. History: Rib fracture hemothorax. Comparison study December 27, 2018. Findings: Right lower lateral rib fractures are again seen. There is no evidence of pneumothorax but there is blunting of the right lateral pleural angle and hazy opacity at the right base on the frontal view. On lateral film there is pleural opacity overlying the spine indicating hydrothorax on the right. This appears larger than on December 26 and December 25, 2018. Left pleural angles are sharp. Heart size is at the upper range of normal. No new infiltrate. 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 Electronically Signed by Scott Kyle MD 12/28/2018 08:00 A
[2018-12-28] MEDS: TAMSULOSIN 0.4 MG CAP PO SCH (08:23)
[2018-12-28] MEDS: diltiaZEM **CD** 180 MG CAP PO SCH (08:24)
[2018-12-28] MEDS: MAGNESIUM OXIDE 400 MG TAB (MAG-OX) PO SCH ×2 (08:24→21:17)
[2018-12-28] MEDS: FLUoxetine 20 MG CAP PO SCH (08:24)
[2018-12-28] MEDS: CARVedilol 3.125 MG TAB PO SCH ×2 (08:24→21:17)
[2018-12-28] MEDS ORDERED: traMADol 50 MG TAB PO PRN (10:45)
[2018-12-28] MEDS ORDERED: SLF 3 ML SYR IV PRN (11:15)
[2018-12-28] MEDS: SLF 3 ML SYR IV SCH ×2 (11:42→21:18)
[2018-12-28 12:00] VITALS: BP 123/89
[2018-12-28] MEDS: fentaNYL 25 MCG/HR PATCH TOP SCH (15:48)
[2018-12-28 16:00] VITALS: BP 125/77
--- NOTE | 2018-12-28 19:52 | IPNPDOC ---
Text Note Date of Service The patient was seen on 12/28/18. NOTE SUBJECTIVE: Patient is seen and examined in the room today. Patient still has discomfort of right chest worsening with direct pressure. His pain is under control. His mentation is improving. OBJECTIVE: VITAL SIGNS: Listed below. GENERAL: Patient is alert and awake, comfortable. HEENT: Normocephalic, atraumatic. Extraocular motors grossly intact. Wearing corrective lenses. CARDIOVASCULAR: Positive S1, S2, irregularly irregular, tachycardic. LUNGS: No wheezes, positive rhonchi bilaterally. ABDOMEN: Soft, nontender, bowel sounds present. EXTREMITIES: No significant edema appreciated. LABORATORY DATA: Listed below. ASSESSMENT AND PLAN: #. Multiple right nondisplaced rib fractures. - Continue pain medication adjustment as needed. Switching pain medication from IV to oral formulation. #. Small right-sided hemithorax. - Dr. Villaseñor consulted. #. Altered mental status. - Suspect secondary to morphine. Will adjust pain medication. Patient did have an elevated white count. Will try to look for possible infectious causes. Will continue to observe. #. History of atrial fibrillation. - On Coreg, on diltiazem. At home, patient was taking Eliquis. Due to hemithorax, Eliquis is on hold at this moment. #. CVA with residual right-sided hemiparalysis. - On Lipitor. Continue with physical therapy. Eliquis on hold. #. Diabetes. - On insulin sliding scale. On consistent carbohydrate diet. #. Anxiety/depression. Continue Prozac. #. History of gastrointestinal (GI) bleed with angioectasia. - Colonoscopy in August 2018, at that time clip was placed. During that colonoscopy, patient was also noted to have diverticulosis in the descending colon and also nonbleeding internal and external hemorrhoids. No sign of active gastrointestinal (GI) bleeding at this moment. Continue to monitor. #. Deep venous thrombosis (DVT) prophylaxis. Patient is on thromboembolism deterrents (TEDs) and compression. VS,Fishbone, I+O VS, Fishbone, I+O Laboratory Tests 12/28/18 05:33 Red Blood Count 4.41, Mean Corpuscular Volume 78.0 L, Mean Corpuscular Hemoglobin 25.9 L, Mean Corpuscular Hemoglobin Concent 33.1, Red Cell Distribution Width 17.1 H, Calcium Level 8.3 L Vital Signs Date Time Temp Pulse Resp B/P (MAP) Pulse Ox O2 Delivery O2 Flow Rate FiO2 12/28/18 18:00 104 18 95 Room Air 12/28/18 16:00 99.0 125/77 (93) 12/27/18 08:00 2.0 12/25/18 22:16 95 I&O- Last 24 Hours up to 6 AM 12/28/18 06:00 Intake Total 475 ml Output Total 560 ml Balance -85 ml BASIL GODOY DO Dec 28, 2018 19:52
[2018-12-28 20:00] VITALS: BP 127/70
[2018-12-28] MEDS: ATORVASTATIN 10 MG TAB PO SCH (21:17)
[2018-12-28 21:53] VITALS: BP 135/89
[2018-12-29] MEDS: SLF 3 ML SYR IV SCH ×3 (05:50→20:30)
[2018-12-29 06:00] VITALS: BP 152/99
[2018-12-29 06:23] LABS: HEMATOCRIT 34.6 % (42.0-52.0); HEMOGLOBIN 11.3 g/dl (13.5-17.5); MEAN CORPUSCULAR HEMOGLOBIN 25.5 pg (27.0-33.0); MEAN CORPUSCULAR HGB CONC 32.7 g/dl (32.0-36.5); MEAN CORPUSCULAR VOLUME 78.1 fl (80.0-96.0); PLATELET COUNT, AUTOMATED 208 10^3/uL (150-450); RED BLOOD COUNT 4.43 10^6/uL (4.30-6.10); WHITE BLOOD COUNT 15.1 10^3/uL (4.0-10.0)
[2018-12-29 06:41] LABS: BLOOD UREA NITROGEN 23 MG/DL (7-18); CALCIUM LEVEL 8.2 MG/DL (8.8-10.2); CARBON DIOXIDE LEVEL 27 MEQ/L (21-32); CHLORIDE LEVEL 99 MEQ/L (98-107); CREATININE FOR GFR 0.94 MG/DL (0.70-1.30); GLOMERULAR FILTRATION RATE > 60.0 (>35); GLUCOSE, FASTING 239 MG/DL (70-100); MAGNESIUM LEVEL 1.6 MG/DL (1.8-2.4); POTASSIUM SERUM 3.5 MEQ/L (3.5-5.1); SODIUM LEVEL 133 MEQ/L (136-145)
[2018-12-29] MEDS: diltiaZEM **CD** 180 MG CAP PO SCH (07:54)
[2018-12-29] MEDS: TAMSULOSIN 0.4 MG CAP PO SCH (07:54)
[2018-12-29] MEDS: MAGNESIUM OXIDE 400 MG TAB (MAG-OX) PO SCH ×2 (07:54→20:29)
[2018-12-29] MEDS: HumaLOG INSULIN (NovoLOG) PER UNIT SC SCH ×4 (07:54→20:23)
[2018-12-29] MEDS: CARVedilol 6.25 MG TAB PO SCH ×2 (07:55→20:29)
[2018-12-29] MEDS: FLUoxetine 20 MG CAP PO SCH (07:55)
[2018-12-29] MEDS ORDERED: FENTANYL REMOVAL DOCUMENTATION MISC XX SCH (09:00)
--- NOTE | 2018-12-29 09:03 | IPN ---
DATE: 12/28/2018 Mr. Hernández's pain is being well controlled while he is lying flat, however when we sit him up he has pain in the right lateral posterior thorax. He is not using his incentive spirometry and I have asked the nurses to start instituting that therapy. His vital signs show a T-max of 98.6 with a heart rate that ranges between 115 and 80, in atrial fibrillation, with a respiratory rate of 28-24 without the use of accessory muscles, who is 94% saturated on room air, and whose blood pressure is ranging between 136/82 to 147/93. His intake and output the past 24 hours have been recorded as only 120 in and 870 out for a negativity of 750 mL. His weight is 64.2 kg today compared to 68.1 kg yesterday. According to his , he is not eating very much. On physical examination, he has crackles during inspiration in the right lower hemithorax. Percussion note is full to the diaphragm. He has tenderness over the posterolateral inferior thorax secondary to rib fractures. Left lung shows normal vesicular sounds. Cardiac exam is without murmurs, clicks, gallops or rubs. I cannot feel his point of maximal impulse (PMI). S1 and S2 are normal. Abdomen is soft and nontender. Bowel sounds are positive. There is no hepatomegaly. No costovertebral angle (CVA) tenderness. Extremities show no pretibial edema. No calf tenderness. No differential swelling of the upper extremities. Skin is warm, dry and perfused without cyanosis or mottling including that of the nail beds and the knees. Neck is supple. There is no jugular venous distention. No subcutaneous emphysema. Trachea is midline. Mouth shows his mucous membranes to be pink and moist. Lips and commissures are without lesions. There is no thrush. Eyes show his pupils to be equal, reactive. Extraocular motors are intact. Sclera nonicteric. Neuro shows II through XII intact, he is completely hemiparetic on the right side. Psychiatric shows him to be awake and alert, oriented times three, and conversational. His white count today is 16.1 down from 17.9 yesterday. Hemoglobin and hematocrit are 11.4 and 34.4 respectively, with a platelet count of 210. Chemistries showed essentially normal electrolytes with a BUN and creatinine of 24 and 0.94, with a glucose of 193, and a calcium of 8.3. Magnesium 1.8. Urinalysis shows 1+ ketones, negative for leukocyte esterase. The ketones probably represent a starvation state. His chest x-ray today shows increased infiltrative or compressive opacity or atelectatic opacity in the right lower lobe. Costophrenic angle is sharp and lung is fully expanded to the chest wall. IMPRESSION: 1. Rib fractures 8, 9 and 10, nondisplaced. 2. Small hemothorax. 3. Atrial fibrillation on Eliquis. 4. Status post CVA with right sided hemiparesis. 5. Diabetes. 6. Hyperlipidemia. 7. Coronary artery disease. 8. Atelectasis right lower lobe. 9. Problematic pain control. PLAN AND DISCUSSION: I will add a Duragesic patch. He hallucinates with oxycodone combinations. The primary service has switched him over to tramadol. I have asked the nurses to aggressively work with his lung expansion with regard to his PEP and incentive spirometry.
--- NOTE | 2018-12-29 09:13 | REP ---
Are brown chest x-ray: Two views. History: Rib fracture. Hemothorax. Comparison study December 28, 2018. Findings: There is no evidence of new infiltrate. Small right pleural effusion persists unchanged. There is an adjacent mildly displaced the right lateral rib fracture again noted. Cardiomediastinal silhouette is unchanged. Electronically Signed by Scott Kyle MD 12/29/2018 09:04 A
[2018-12-29 14:00] VITALS: BP 103/65
--- NOTE | 2018-12-29 15:07 | IPNPDOC ---
Text Note Date of Service The patient was seen on 12/29/18. NOTE SUBJECTIVE: Patient is seen and examined in the room today. Patient denies significant pain from his right ribs. He knows the place and date, but he can not remember the name of president. He states he had auditory hallucination when he was talking hydrocodone or oxycodone. Currently he does not have any hallucination. Denies acute complaint. OBJECTIVE: VITAL SIGNS: Listed below. GENERAL: Patient is alert and awake, comfortable. Not oriented to name of president. HEENT: Normocephalic, atraumatic. Extraocular motors grossly intact. CARDIOVASCULAR: Positive S1, S2, irregularly irregular. LUNGS: No wheezes, positive rhonchi bilaterally. ABDOMEN: Soft, nontender, bowel sounds present. EXTREMITIES: No significant edema appreciated. LABORATORY DATA: Listed below. ASSESSMENT AND PLAN: #. Small right-sided hemithorax. - Dr. Villaseñor consulted. - Per Dr. Villaseñor, patient has increased atelectatic change. CPAP ordered. Will continue monitoring patient for next few days. #. Multiple right nondisplaced rib fractures. - Continue pain medication adjustment as needed. Switching pain medication from IV to oral formulation. - History of auditory hallucination from hydrocodone or oxycodone. Will be cautious with regarding to pain medication usage. #. Altered mental status. - Suspect secondary to morphine. Will adjust pain medication. Patient did have an elevated white count. Will try to look for possible infectious causes. Will continue to observe. #. History of atrial fibrillation. - On Coreg, on diltiazem. At home, patient was taking Eliquis. Due to hemithorax, Eliquis is on hold at this moment. #. CVA with residual right-sided hemiparalysis. - On Lipitor. Continue with physical therapy. Eliquis on hold. #. Diabetes. - On insulin sliding scale. On consistent carbohydrate diet. #. Anxiety/depression. Continue Prozac. #. History of gastrointestinal (GI) bleed with angioectasia. - Colonoscopy in August 2018, at that time clip was placed. During that colonoscopy, patient was also noted to have diverticulosis in the descending colon and also nonbleeding internal and external hemorrhoids. No sign of active gastrointestinal (GI) bleeding at this moment. Continue to monitor. #. Deep venous thrombosis (DVT) prophylaxis. Patient is on thromboembolism deterrents (TEDs) and compression. VS,Fishbone, I+O VS, Fishbone, I+O Laboratory Tests 12/29/18 05:32 Red Blood Count 4.43, Mean Corpuscular Volume 78.1 L, Mean Corpuscular Hemoglobin 25.5 L, Mean Corpuscular Hemoglobin Concent 32.7, Red Cell Distribution Width 17.2 H, Calcium Level 8.2 L Vital Signs Date Time Temp Pulse Resp B/P (MAP) Pulse Ox O2 Delivery O2 Flow Rate FiO2 12/29/18 09:39 81 16 96 Room Air 12/29/18 07:54 162/87 12/29/18 06:00 98.0 12/27/18 08:00 2.0 12/25/18 22:16 95 I&O- Last 24 Hours up to 6 AM 12/29/18 06:00 Intake Total 720 ml Output Total 695 ml Balance 25 ml BASIL GODOY DO Dec 29, 2018 15:07
[2018-12-29] MEDS: ATORVASTATIN 10 MG TAB PO SCH (20:29)
--- NOTE | 2018-12-29 20:38 | IPN ---
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 I can certainly move him today and he does not wince and exaggerate pain. His chest x-ray however shows more atelectasis in the right lower lobe and I am concerned that if we let this go and let him go back to the extended care facility that he will develop pneumonia. His vital signs show a maximum temperature (t-max) of 99.4 with a heart rate that ranges between 71 and 113, in atrial fibrillation, with a respiratory rate of 14 to 18 without the use of accessory muscles, who is 96% saturated on room air, and whose blood pressure is ranging between 162/87 to 135/89. His intake and output the past 24 hours have been recorded as 1075 in and 660 out for a positivity of 450 mL. PHYSICAL EXAMINATION: LUNGS: His lungs show equal breath sounds on either side; however, he has crackles and bronchophony in the right lower hemithorax with partial E:A egophony in the right lower hemithorax. Percussion note is full to the diaphragm. He is tender in the posterolateral inferior portion of the chest wall. CARDIAC EXAM: Without murmurs, clicks, gallops or rubs. I cannot feel his point of maximum impulse (PMI). S1, S2 are normal. ABDOMEN: Soft, nontender. Bowel sounds positive. There is no hepatomegaly. No costovertebral angle tenderness. At the time of my examination, he was eating lunch. EXTREMITIES: Show no pretibial edema. No calf tenderness. No differential swelling of the upper extremities. SKIN: Warm, dry and perfused without cyanosis or mottling, including that of the nail beds and knees. NECK: Supple. There is no jugular venous distention. No subcutaneous emphysema. Trachea is midline. MOUTH: Shows his mucous membranes to be pink and moist. Lips and commissures without lesions. There is no thrush. EYES: Show his pupils to be equal and reactive. Extraocular motion intact. Sclerae anicteric. NEUROLOGIC: Shows II through XII intact. He is hemiparetic on the right side. He uses his left hand to feed himself. PSYCHIATRIC: Shows him to be awake and alert, but somewhat hesitant and probable aphasic, trying to find his words. His white count today is 15.1 down from 16.1 yesterday. Hemoglobin and hematocrit are 11.3 and 34.6, with a platelet count of 208. There is no differential. Electrolytes are essentially normal electrolytes with a BUN and creatinine of 23 and 0.94, with a glucose of 239, and a calcium of 8.2. Magnesium is low at 1.6. His chest x-ray is described above with more opacity in the right lower hemithorax. Lung is fully expanded to the chest wall and the costophrenic angle is only slightly blunted on the right side. IMPRESSION: 1. Rib fractures 8, 9 and 10, nondisplaced. 2. Small hemothorax. 3. Atrial fibrillation on Eliquis. 4. Status post CVA with right sided hemiparesis. 5. Diabetes. 6. Hyperlipidemia. 7. Coronary artery disease. 8. Atelectasis right lower lobe, worse. 9. Problematic pain control, getting better. PLAN AND DISCUSSION: I will place him on intermittent CPAP for 20 minutes four times a day in order to expand that lung. He is quite disappointed that I am recommending that we keep him in the hospital rather than sending him back to [place] extended [facility]. I do think that this will be beneficial to keep him in the [facility] out of the hospital so he does not return with pneumonia.
[2018-12-29 21:23] LABS: ABG BASE EXCESS 3.5 (-2.0-2.0); ABG HCO3 27.7 MEQ/L (22.0-26.0); ABG PARTIAL PRESSURE CO2 40.6 mmHg (35.0-45.0); ABG STANDARD HCO3 27.6 MEQ/L (22.0-26.0); ABG pH (ARTERIAL) 7.452 UNITS (7.350-7.450)
[2018-12-29 22:00] VITALS: BP 121/92
[2018-12-29 22:14] LABS: BLOOD UREA NITROGEN 26 MG/DL (7-18); CALCIUM LEVEL 8.6 MG/DL (8.8-10.2); CARBON DIOXIDE LEVEL 30 MEQ/L (21-32); CHLORIDE LEVEL 99 MEQ/L (98-107); GLOMERULAR FILTRATION RATE > 60.0 (>35); GLUCOSE, FASTING 175 MG/DL (70-100); MAGNESIUM LEVEL 1.8 MG/DL (1.8-2.4); PHOSPHORUS LEVEL 3.1 MG/DL (2.5-4.9); SODIUM LEVEL 134 MEQ/L (136-145)
--- NOTE | 2018-12-29 23:07 | IPNPDOC ---
Text Note Date of Service The patient was seen on 12/29/18. NOTE OVERNIGHT NOTE Staff concerned about ongoing lethargy. Chart reviewed and pt examined at bedside ~9pm. Resting comfortably in bed, able to open eyes and follow commands. in room states he has been drowsy for the past few hours and is fully interactive and energetic at baseline. He has residual right-sided hemiparesis from previous CVA, but otherwise is normal on physical exam [heart rate controlled in afib, no accessory muscle use or signs of respiratory distress, distant lung sounds, but no adventitious sounds, no abd pain or calf tenderness]. ABG ordered overnight unremarkable, as well as BMP. His pain meds were changed earlier today with concern that his lethargy may be from this. Labs overnight reveal CRP narcisa from 7 to 14, but pt remains afebrile and has not had any new symptoms suggesting a source of infection, including abd pain, worsening coughing or phlegm production. Blood cultures already done 2 days prior were negative. At this point, will f/u with Procal level and sputum culture if pt is able to provide a sample. Repeat CRP in am. Will hold abx currently given that his current clinical picture does not fully suggest an infectious etiology. He is otherwise stable, and we will continue monitoring. If remaining w/u negative, consider resp panel, and possibly imaging abd/pelvis as he has not had one yet and underlying malignancy cannot be ruled out given his persistent leukocytosis and rising CRP. A-FIB/CHADSVASC A-FIB History Current/History of A-Fib/PAF?: Yes Current Oral Anticoagulant The: No Treatment Reason Anticoagulant not given: Current bleeding VS,Fishbone, I+O VS, Fishbone, I+O Laboratory Tests 12/29/18 05:32 Red Blood Count 4.43, Mean Corpuscular Volume 78.1 L, Mean Corpuscular Hemoglobin 25.5 L, Mean Corpuscular Hemoglobin Concent 32.7, Red Cell Distribution Width 17.2 H, Calcium Level 8.2 L 12/29/18 21:28 Calcium Level 8.6 L Vital Signs Date Time Temp Pulse Resp B/P (MAP) Pulse Ox O2 Delivery O2 Flow Rate FiO2 12/29/18 22:00 97.7 114 18 121/92 (102) 92 12/29/18 15:54 Full Face Mask 12/27/18 08:00 2.0 12/25/18 22:16 95 I&O- Last 24 Hours up to 6 AM 12/29/18 06:00 Intake Total 720 ml Output Total 695 ml Balance 25 ml GME ATTESTATION GME ATTESTATION My faculty preceptor for this patient encounter was physically present during the encounter and was fully available. All aspects of the patient interview, examination, medical decision making process, and medical care plan development were reviewed and approved by the faculty preceptor. The faculty preceptor is aware and concurs with the plan as stated in the body of this note and will attest to such by his/her cosignature. AKIN CASTRO DO Dec 29, 2018 23:07
[2018-12-30 03:00] VITALS: BP 154/98
[2018-12-30] MEDS: SLF 3 ML SYR IV SCH ×3 (05:07→22:00)
[2018-12-30 06:00] VITALS: BP 139/93
[2018-12-30 06:11] LABS: HEMATOCRIT 36.9 % (42.0-52.0); HEMOGLOBIN 11.9 g/dl (13.5-17.5); MEAN CORPUSCULAR HEMOGLOBIN 25.5 pg (27.0-33.0); MEAN CORPUSCULAR HGB CONC 32.2 g/dl (32.0-36.5); PLATELET COUNT, AUTOMATED 212 10^3/uL (150-450); RED BLOOD COUNT 4.67 10^6/uL (4.30-6.10); WHITE BLOOD COUNT 14.1 10^3/uL (4.0-10.0)
[2018-12-30 06:32] LABS: BLOOD UREA NITROGEN 28 MG/DL (7-18); CALCIUM LEVEL 8.7 MG/DL (8.8-10.2); CARBON DIOXIDE LEVEL 27 MEQ/L (21-32); CHLORIDE LEVEL 100 MEQ/L (98-107); CREATININE FOR GFR 0.85 MG/DL (0.70-1.30); GLOMERULAR FILTRATION RATE > 60.0 (>35); GLUCOSE, FASTING 275 MG/DL (70-100); MAGNESIUM LEVEL 1.9 MG/DL (1.8-2.4); SODIUM LEVEL 134 MEQ/L (136-145)
--- NOTE | 2018-12-30 08:15 | REP ---
Chest x-ray: Two views. History: Rib fracture. Hemothorax. Comparison study is from December 29 and December 28. Findings: A no new infiltrate is seen. Pleural opacity persists at the right base unchanged from yesterday's radiograph. This is predominately posterior. The right lateral 8th rib is fractured in two places. This is unchanged. Cardiomediastinal silhouette is unchanged. Impression: No new infiltrate. Pleural opacity persists on the right unchanged. Electronically Signed by Scott Kyle MD 12/30/2018 09:25 A
[2018-12-30] MEDS: MAGNESIUM OXIDE 400 MG TAB (MAG-OX) PO SCH ×2 (09:35→21:47)
[2018-12-30] MEDS: FLUoxetine 20 MG CAP PO SCH (09:35)
[2018-12-30] MEDS: TAMSULOSIN 0.4 MG CAP PO SCH (09:35)
[2018-12-30] MEDS: HumaLOG INSULIN (NovoLOG) PER UNIT SC SCH ×4 (09:36→21:00)
[2018-12-30] MEDS: CARVedilol 6.25 MG TAB PO SCH ×2 (09:36→22:29)
[2018-12-30] MEDS: diltiaZEM **CD** 180 MG CAP PO SCH (09:37)
--- NOTE | 2018-12-30 13:27 | IPNPDOC ---
Text Note Date of Service The patient was seen on 12/30/18. NOTE SUBJECTIVE: Patient is seen and examined in the room today. Patient does not complain about his right rib pain. He denies acute complaint. OBJECTIVE: VITAL SIGNS: Listed below. GENERAL: Patient is alert and awake, comfortable. Not oriented to name of president. HEENT: Normocephalic, atraumatic. Extraocular motors grossly intact. CARDIOVASCULAR: Positive S1, S2, irregularly irregular. LUNGS: No wheezes, positive rhonchi bilaterally. ABDOMEN: Soft, nontender, bowel sounds present. EXTREMITIES: No significant edema appreciated. LABORATORY DATA: Listed below. ASSESSMENT AND PLAN: #. Small right-sided hemithorax. - Dr. Villaseñor consulted. - Per Dr. Villaseñor, patient has increased atelectatic change. CPAP ordered. Will continue monitoring patient for next few days. #. Multiple right nondisplaced rib fractures. - Continue pain medication adjustment as needed. Switching pain medication from IV to oral formulation. - History of auditory hallucination from hydrocodone or oxycodone. Will be cautious with regarding to pain medication usage. #. Altered mental status. - Suspect secondary to morphine.Adjusting pain medication as tolerated. Patient has elevated white count. Patient also has atelectatic change. On CPAP QID. No obviously sign of infection at this moment. Will continue to observe. #. History of atrial fibrillation. - On Coreg, on diltiazem. At home, patient was taking Eliquis. Due to hemithorax, Eliquis is on hold at this moment. #. CVA with residual right-sided hemiparalysis. - On Lipitor. Continue with physical therapy. Eliquis on hold. #. Diabetes. - On insulin sliding scale. On consistent carbohydrate diet. #. Anxiety/depression. Continue Prozac. #. History of gastrointestinal (GI) bleed with angioectasia. - Colonoscopy in August 2018, at that time clip was placed. During that colonoscopy, patient was also noted to have diverticulosis in the descending colon and also nonbleeding internal and external hemorrhoids. No sign of active gastrointestinal (GI) bleeding at this moment. Continue to monitor. #. Deep venous thrombosis (DVT) prophylaxis. Patient is on thromboembolism deterrents (TEDs) and compression. VS,Fishbone, I+O VS, Fishbone, I+O Laboratory Tests 12/29/18 21:28 Calcium Level 8.6 L 12/30/18 05:23 Calcium Level 8.7 L, Red Blood Count 4.67, Mean Corpuscular Volume 79.0 L, Mean Corpuscular Hemoglobin 25.5 L, Mean Corpuscular Hemoglobin Concent 32.2, Red Cell Distribution Width 17.9 H Vital Signs Date Time Temp Pulse Resp B/P (MAP) Pulse Ox O2 Delivery O2 Flow Rate FiO2 12/30/18 11:04 Full Face Mask 12/30/18 09:37 80 140/90 12/30/18 06:00 99.2 20 95 12/27/18 08:00 2.0 12/25/18 22:16 95 I&O- Last 24 Hours up to 6 AM 12/30/18 06:00 Intake Total 986 ml Output Total 210 ml Balance 776 ml BASIL GODOY DO Dec 30, 2018 13:27
[2018-12-30 14:00] VITALS: BP 102/70
[2018-12-30 21:30] VITALS: BP 110/84
[2018-12-30] MEDS: ATORVASTATIN 10 MG TAB PO SCH (21:47)
[2018-12-31] MEDS: SLF 3 ML SYR IV SCH ×3 (05:36→20:45)
[2018-12-31 06:00] VITALS: BP 138/96
[2018-12-31 07:07] LABS: HEMATOCRIT 34.5 % (42.0-52.0); HEMOGLOBIN 11.2 g/dl (13.5-17.5); MEAN CORPUSCULAR HEMOGLOBIN 25.8 pg (27.0-33.0); MEAN CORPUSCULAR HGB CONC 32.5 g/dl (32.0-36.5); MEAN CORPUSCULAR VOLUME 79.5 fl (80.0-96.0); PLATELET COUNT, AUTOMATED 199 10^3/uL (150-450); RED BLOOD COUNT 4.34 10^6/uL (4.30-6.10); WHITE BLOOD COUNT 10.4 10^3/uL (4.0-10.0)
[2018-12-31 07:27] LABS: BLOOD UREA NITROGEN 24 MG/DL (7-18); CALCIUM LEVEL 8.5 MG/DL (8.8-10.2); CARBON DIOXIDE LEVEL 27 MEQ/L (21-32); CHLORIDE LEVEL 100 MEQ/L (98-107); CREATININE FOR GFR 0.88 MG/DL (0.70-1.30); GLOMERULAR FILTRATION RATE > 60.0 (>35); GLUCOSE, FASTING 276 MG/DL (70-100); MAGNESIUM LEVEL 1.8 MG/DL (1.8-2.4); POTASSIUM SERUM 3.8 MEQ/L (3.5-5.1); SODIUM LEVEL 134 MEQ/L (136-145)
--- NOTE | 2018-12-31 08:36 | REP ---
Chest two views HISTORY: Hemothorax Comparison: 12/30/2018 A pleural-based density is present in the right hemithorax consistent with a pleural effusion or hemothorax. This appears unchanged compared to the previous study. The left lung is clear. The heart is normal in size. The pulmonary vasculature is normal in appearance. There is a fracture of the right eighth rib. IMPRESSION: There has been no change in the small right pleural effusion or hemothorax compared to the previous study. Electronically Signed by Brodie Colon MD 12/31/2018 08:28 A
[2018-12-31] MEDS: HumaLOG INSULIN (NovoLOG) PER UNIT SC SCH ×4 (08:44→20:45)
[2018-12-31] MEDS: MAGNESIUM OXIDE 400 MG TAB (MAG-OX) PO SCH ×2 (08:45→20:44)
[2018-12-31] MEDS: diltiaZEM **CD** 180 MG CAP PO SCH (08:46)
[2018-12-31] MEDS: FLUoxetine 20 MG CAP PO SCH (08:46)
[2018-12-31] MEDS: TAMSULOSIN 0.4 MG CAP PO SCH (08:46)
[2018-12-31] MEDS: CARVedilol 6.25 MG TAB PO SCH ×2 (08:47→20:44)
[2018-12-31] MEDS: fentaNYL 25 MCG/HR PATCH TOP SCH (08:51)
[2018-12-31] MEDS ORDERED: ONDANSETRON 4MG/2ML VIAL (J2405) IV PRN (09:15)
[2018-12-31 09:30] VITALS: BP 133/83
--- NOTE | 2018-12-31 14:30 | IPNPDOC ---
Text Note Date of Service The patient was seen on 12/31/18. NOTE SUBJECTIVE: Patient is seen and examined in the room today. Patient does not complain about pain. He has requested to be off fentanyl patch. He would like be on as needed oral pain medication. He denies acute complaint. OBJECTIVE: VITAL SIGNS: Listed below. GENERAL: Patient is alert and awake, comfortable. Not oriented to name of president. HEENT: Normocephalic, atraumatic. Extraocular motors grossly intact. CARDIOVASCULAR: Positive S1, S2, irregularly irregular. LUNGS: No wheezes, positive rhonchi bilaterally. ABDOMEN: Soft, nontender, bowel sounds present. EXTREMITIES: No significant edema appreciated. LABORATORY DATA: Listed below. ASSESSMENT AND PLAN: #. Multiple right nondisplaced rib fractures. - Continue pain medication adjustment as needed. Patient requested discontinuing fentanyl patch. On PRN oral tramadol. - History of auditory hallucination from hydrocodone or oxycodone. Will be cautious with regarding to pain medication usage. #. Small right-sided hemithorax. - Dr. Villaseñor consulted. - Per Dr. Villaseñor, patient has increased atelectatic change. CPAP ordered. Will continue monitoring patient for next few days. - Per patient request, will discontinue fentanyl patch # Altered mental status - Suspect secondary to morphine. Pain medication adjusted. Continue monitoring mentation while patient is on pain medication. Patient has history of auditory hallucination from hydrocodone or oxycodone. #. History of atrial fibrillation. - On Coreg, on diltiazem. At home, patient was taking Eliquis. Due to hemithorax, Eliquis is on hold at this moment. #. CVA with residual right-sided hemiparalysis. - On Lipitor. Continue with physical therapy. Eliquis on hold. #. Diabetes. - On insulin sliding scale. On consistent carbohydrate diet. #. Anxiety/depression. Continue Prozac. #. History of gastrointestinal (GI) bleed with angioectasia. - Colonoscopy in August 2018, at that time clip was placed. During that colonoscopy, patient was also noted to have diverticulosis in the descending colon and also nonbleeding internal and external hemorrhoids. No sign of active gastrointestinal (GI) bleeding at this moment. Continue to monitor. #. Deep venous thrombosis (DVT) prophylaxis. Patient is on thromboembolism deterrents (TEDs) and compression. VS,Fishbone, I+O VS, Fishbone, I+O Laboratory Tests 12/31/18 06:40 Red Blood Count 4.34, Mean Corpuscular Volume 79.5 L, Mean Corpuscular Hemoglobin 25.8 L, Mean Corpuscular Hemoglobin Concent 32.5, Red Cell Distribution Width 17.8 H, Calcium Level 8.5 L Vital Signs Date Time Temp Pulse Resp B/P (MAP) Pulse Ox O2 Delivery O2 Flow Rate FiO2 12/31/18 10:00 Full Face Mask 12/31/18 09:30 98.0 92 20 133/83 98 12/27/18 08:00 2.0 12/25/18 22:16 95 I&O- Last 24 Hours up to 6 AM 12/31/18 06:00 Intake Total 872 ml Output Total 200 ml Balance 672 ml BASIL GODOY DO Dec 31, 2018 14:30
--- NOTE | 2018-12-31 16:09 | IPN ---
DATE: 12/30/2018 Mr. Hernández became somnolent last night after placing a fentanyl patch. The patch was removed and he is not completely awake and alert. I did put him on intermittent CPAP yesterday, and his x-ray is certainly improved. He tells me that his pain is much better, and even when I sit him up in bed he does not wince as much as he was initially. His vital signs show a maximum temperature (t-max) of 99.2 with a blood pressure that is ranging between 154/98 to 102/70 and a heart rate of 80 to 107 with an irregular rate and rhythm, respiratory rate of 19 to 22 without the use of accessory muscles, who is 98% saturated on room air. His intake and output the past 24 hours has been recorded as 866 in and 385 out, for a positivity of 481 mL. PHYSICAL EXAMINATION: LUNGS: His lungs show equal breath sounds on either side. I still hear some bronchophony in the right lower hemithorax. Percussion notes are full to the diaphragm. He is combination machine tender in the right lateral inferior chest. CARDIAC EXAM: Without murmurs, clicks, gallops or rubs. I cannot feel his point of maximum impulse (PMI). S1, S2 are normal. ABDOMEN: Soft, nontender. Bowel sounds positive. There is no hepatomegaly. No costovertebral angle tenderness. EXTREMITIES: Show no pretibial edema. No calf tenderness. No differential swelling of the upper extremities. SKIN: Warm, dry and perfused without cyanosis or mottling, including that of the nail beds and knees. NECK: Supple. There is no jugular venous distention. No subcutaneous emphysema. Trachea is midline. MOUTH: Shows his mucous membranes to be pink and moist. Lips and commissures without lesions. There is no thrush. EYES: Show his pupils to be equal and reactive. Extraocular motion intact. Sclerae anicteric. NEUROLOGIC: Shows II through XII intact. Gross motor and gross sensation is intact. Gait is not tested. PSYCHIATRIC: Shows him to be awake and alert, oriented times three with appropriate mood and affect and conversational. He is somewhat hesitant and has an aphasia. His white count today is 14.1 with a hemoglobin and hematocrit of 11.9 and 36.9. His white count is decreased from 15.1 yesterday. Platelet count is 212. There is no differential. Electrolytes are essentially normal with a BUN and creatinine of 28 and 0.85 with a glucose of 275 and a calcium of 8.7. Magnesium is 1.9. His chest x-ray today shows improvement in the right lower lobe over yesterday. It looks a little bit more expanded. A rib fracture can be seen. There is no pneumothorax and the lung is fully expanded to the chest wall. IMPRESSION: 1. Rib fractures 8, 9 and 10, nondisplaced. 2. Small hemothorax. 3. Atrial fibrillation on Eliquis. 4. Status post CVA with right sided hemiparesis. 5. Diabetes. 6. Hyperlipidemia. 7. Coronary artery disease. 8. Atelectasis right lower lobe, improving with intermittent CPAP. 9. Problematic pain control with somnolence secondary to fentanyl patch, now discontinued. PLAN AND DISCUSSION: I will continue him on the CPAP. Right now his pain control is fairly effective. I am told that he cannot have intermittent CPAP at [facility] and therefore I will keep him in the hospital at least over the weekend to continue the intermittent CPAP. We will need to get him up to a chair.
--- NOTE | 2018-12-31 16:21 | IPN ---
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 He says his pain control is much better, and he tells me that he feels that his chest is in one piece rather than two. He has been up to a chair today and has been down to x-ray. He is breathing well. His vital signs show a maximum temperature (t-max) of 99.2 with a heart rate that ranges between 82 and 92 with a regular rate and rhythm with a respiratory rate of 18 to 20 without the use of accessory muscles, who is 98% saturated on room air, and whose blood pressure is ranging between 110/84 to 138/96. His intake and output the past 24 hours has been recorded as 992 in and 200 out for a positivity of 792 mL. He has had four incontinent voids. PHYSICAL EXAMINATION: LUNGS: His lungs show equal breath sounds on either side. The bronchophony is all but disappeared, as is the egophony on the right lower hemithorax. Percussion note is full to the diaphragm. CARDIAC EXAM: Without murmurs, clicks, gallops or rubs. I cannot feel his point of maximum impulse (PMI). S1, S2 are normal. ABDOMEN: Soft, nontender. Bowel sounds positive. There is no hepatomegaly. No costovertebral angle tenderness. EXTREMITIES: Show no pretibial edema. No calf tenderness. No differential swelling of the upper extremities. SKIN: Warm, dry and perfused without cyanosis or mottling, including that of the nail beds and knees. NECK: Supple. There is no jugular venous distention. No subcutaneous emphysema. Trachea is midline. MOUTH: Shows his mucous membranes to be pink and moist. Lips and commissures without lesions. There is no thrush. EYES: Show his pupils to be equal and reactive. Extraocular motion intact. Sclerae anicteric. NEUROLOGIC: Shows II through XII intact. He is hemiparetic on the right side in both upper and lower extremities. PSYCHIATRIC: Shows him to be much more awake and alert today and conversational. His white count today is 10.4 with a hemoglobin and hematocrit of 11.2 and 34.5, respectively. Platelet count is 199. His chemistries are essentially normal with a BUN and creatinine of 24 and 0.88, glucose of 276, calcium of 8.5 and magnesium of 1.8. His chest x-ray today shows the lung fully expanded to the chest wall. The atelectasis is markedly improving. There is some fluid in the fissure. Costophrenic angle is minimally blunted. I still see atelectasis on the lateral film posteriorly, it is however markedly improved. IMPRESSION: 1. Rib fractures 8, 9 and 10, nondisplaced. 2. Small hemothorax. 3. Atrial fibrillation on Eliquis. 4. Status post CVA with right sided hemiparesis. 5. Diabetes. 6. Hyperlipidemia. 7. Coronary artery disease. 8. Atelectasis right lower lobe, improving . 9. Pain control, improving. PLAN AND DISCUSSION: I am very gratified as to his progress. I think that we should stay the course for over the weekend and potentially plan for discharge on Wednesday. I will continue the intermittent CPAP. His pain is much better and he can breathe better.
[2018-12-31] MEDS: ATORVASTATIN 10 MG TAB PO SCH (20:44)
[2018-12-31 22:00] VITALS: BP 118/79
[2019-01-01] MEDS: ACETAMINOPHEN TAB 650MG DOSE (2X325MG) PO PRN (04:20)
[2019-01-01 06:00] VITALS: BP 139/93
[2019-01-01] MEDS: SLF 3 ML SYR IV SCH ×3 (06:01→21:15)
[2019-01-01 07:03] LABS: HEMATOCRIT 34.2 % (42.0-52.0); HEMOGLOBIN 11.1 g/dl (13.5-17.5); MEAN CORPUSCULAR HGB CONC 32.5 g/dl (32.0-36.5); MEAN CORPUSCULAR VOLUME 80.1 fl (80.0-96.0); PLATELET COUNT, AUTOMATED 221 10^3/uL (150-450); RED BLOOD COUNT 4.27 10^6/uL (4.30-6.10); WHITE BLOOD COUNT 13.1 10^3/uL (4.0-10.0)
[2019-01-01 07:25] LABS: BLOOD UREA NITROGEN 21 MG/DL (7-18); CALCIUM LEVEL 7.9 MG/DL (8.8-10.2); CARBON DIOXIDE LEVEL 25 MEQ/L (21-32); CHLORIDE LEVEL 102 MEQ/L (98-107); CREATININE FOR GFR 0.76 MG/DL (0.70-1.30); GLOMERULAR FILTRATION RATE > 60.0 (>35); GLUCOSE, FASTING 231 MG/DL (70-100); MAGNESIUM LEVEL 1.7 MG/DL (1.8-2.4); POTASSIUM SERUM 4.7 MEQ/L (3.5-5.1); SODIUM LEVEL 132 MEQ/L (136-145)
[2019-01-01] MEDS: TAMSULOSIN 0.4 MG CAP PO SCH (08:27)
[2019-01-01] MEDS: CARVedilol 6.25 MG TAB PO SCH ×2 (08:27→21:14)
[2019-01-01] MEDS: diltiaZEM **CD** 180 MG CAP PO SCH (08:27)
[2019-01-01] MEDS: HumaLOG INSULIN (NovoLOG) PER UNIT SC SCH ×4 (08:28→21:14)
[2019-01-01] MEDS: FLUoxetine 20 MG CAP PO SCH (08:28)
[2019-01-01] MEDS: MAGNESIUM OXIDE 400 MG TAB (MAG-OX) PO SCH ×2 (08:28→21:14)
--- NOTE | 2019-01-01 10:26 | REP ---
Chest two views HISTORY: Right lower lobe atelectasis. Comparison: 12/31 19 Parenchymal density is present in the right lower lobe consistent with atelectasis that is slightly decreased compared to the previous study. The left lung is clear. A pleural based density is present in the right hemithorax consistent with pleural effusion or hemothorax unchanged compared to the previous study. The heart is normal in size. The pulmonary vasculature is normal in appearance. There is a fracture of the right eighth rib. IMPRESSION: 1. Right lower lobe atelectasis decreased compared to the previous study. 2. Small right pleural effusion or hemothorax unchanged compared to the previous study. Electronically Signed by Brodie Colon MD 01/01/2019 10:17 A
[2019-01-01 14:00] VITALS: BP 122/67
--- NOTE | 2019-01-01 14:48 | IPNPDOC ---
Text Note Date of Service The patient was seen on 01/01/19. NOTE SUBJECTIVE: Patient is seen and examined in the room today. Patient requested discontinuing fentanyl patch yesterday. Patient states his pain is still under control. He would like be on as needed oral pain medication. He denies acute complaint. OBJECTIVE: VITAL SIGNS: Listed below. GENERAL: Patient is alert and awake, comfortable. Not oriented to name of president. HEENT: Normocephalic, atraumatic. Extraocular motors grossly intact. CARDIOVASCULAR: Positive S1, S2, irregularly irregular. LUNGS: No wheezes, positive rhonchi bilaterally. ABDOMEN: Soft, nontender, bowel sounds present. EXTREMITIES: No significant edema appreciated. LABORATORY DATA: Listed below. ASSESSMENT AND PLAN: #. Multiple right nondisplaced rib fractures. - Continue pain medication adjustment as needed. Patient requested discontinuing fentanyl patch. On PRN oral tramadol. - History of auditory hallucination from hydrocodone or oxycodone. Will be cautious with regarding to pain medication usage. - Anticipate discharge in the next 24-48 hours #. Small right-sided hemithorax. - Dr. Villaseñor consulted. - Per Dr. Villaseñor, patient has increased atelectatic change. CPAP ordered. Will continue monitoring patient for next few days. - Per patient request, fentanyl patch discontinued. On tylenol and PRN tramadol. # Altered mental status - Suspect secondary to morphine. Pain medication adjusted. Continue monitoring mentation while patient is on pain medication. Patient has history of auditory hallucination from hydrocodone or oxycodone. #. History of atrial fibrillation. - On Coreg, on diltiazem. At home, patient was taking Eliquis. Due to hemithorax, Eliquis is on hold at this moment. #. CVA with residual right-sided hemiparalysis. - On Lipitor. Continue with physical therapy. Eliquis on hold. #. Diabetes. - On insulin sliding scale. On consistent carbohydrate diet. #. Anxiety/depression. Continue Prozac. #. History of gastrointestinal (GI) bleed with angioectasia. - Colonoscopy in August 2018, at that time clip was placed. During that colonoscopy, patient was also noted to have diverticulosis in the descending colon and also nonbleeding internal and external hemorrhoids. No sign of active gastrointestinal (GI) bleeding at this moment. Continue to monitor. #. Deep venous thrombosis (DVT) prophylaxis. Patient is on thromboembolism deterrents (TEDs) and compression. VS,Fishbone, I+O VS, Fishbone, I+O Laboratory Tests 01/01/19 06:30 Red Blood Count 4.27 L, Mean Corpuscular Volume 80.1, Mean Corpuscular Hemoglobin 26.0 L, Mean Corpuscular Hemoglobin Concent 32.5, Red Cell Distribution Width 17.6 H, Calcium Level 7.9 L Vital Signs Date Time Temp Pulse Resp B/P (MAP) Pulse Ox O2 Delivery O2 Flow Rate FiO2 01/01/19 14:00 98.0 84 17 122/67 (85) 97 01/01/19 09:00 Room Air 12/27/18 08:00 2.0 I&O- Last 24 Hours up to 6 AM 01/01/19 06:00 Intake Total 1660 ml Output Total 975 ml Balance 685 ml BASIL GODOY DO Jan 01, 2019 14:48
[2019-01-01] MEDS: ATORVASTATIN 10 MG TAB PO SCH (21:14)
[2019-01-01 22:00] VITALS: BP 130/93
[2019-01-02] MEDS: SLF 3 ML SYR IV SCH (05:22)
[2019-01-02 06:00] VITALS: BP_SYST 137; BP_SYST 138; BP_DIAS 66; BP_DIAS 98
[2019-01-02 06:32] LABS: HEMATOCRIT 34.4 % (42.0-52.0); HEMOGLOBIN 11.3 g/dl (13.5-17.5); MEAN CORPUSCULAR HEMOGLOBIN 26.3 pg (27.0-33.0); MEAN CORPUSCULAR HGB CONC 32.8 g/dl (32.0-36.5); MEAN CORPUSCULAR VOLUME 80.2 fl (80.0-96.0); PLATELET COUNT, AUTOMATED 241 10^3/uL (150-450); RED BLOOD COUNT 4.29 10^6/uL (4.30-6.10); WHITE BLOOD COUNT 11.5 10^3/uL (4.0-10.0)
[2019-01-02 06:57] LABS: BLOOD UREA NITROGEN 17 MG/DL (7-18); CALCIUM LEVEL 8.2 MG/DL (8.8-10.2); CARBON DIOXIDE LEVEL 29 MEQ/L (21-32); CHLORIDE LEVEL 102 MEQ/L (98-107); GLOMERULAR FILTRATION RATE > 60.0 (>35); GLUCOSE, FASTING 253 MG/DL (70-100); MAGNESIUM LEVEL 1.7 MG/DL (1.8-2.4); POTASSIUM SERUM 3.5 MEQ/L (3.5-5.1); SODIUM LEVEL 136 MEQ/L (136-145)
[2019-01-02] MEDS ORDERED: MAG400TA PO (08:28)
[2019-01-02] MEDS ORDERED: CARV6.25 PO (08:28)
[2019-01-02] MEDS: HumaLOG INSULIN (NovoLOG) PER UNIT SC SCH (08:40)
[2019-01-02] MEDS: TAMSULOSIN 0.4 MG CAP PO SCH (08:41)
[2019-01-02] MEDS: FLUoxetine 20 MG CAP PO SCH (08:41)
[2019-01-02] MEDS: diltiaZEM **CD** 180 MG CAP PO SCH (08:41)
[2019-01-02 08:42] VITALS: BP 150/85
[2019-01-02] MEDS: CARVedilol 6.25 MG TAB PO SCH (08:42)
[2019-01-02] MEDS: MAGNESIUM OXIDE 400 MG TAB (MAG-OX) PO SCH (08:42)
--- NOTE | 2019-01-02 09:39 | REP ---
Chest two views HISTORY: Hemothorax Comparison: 01/01/2019 Patchy density is present in the right lower lobe consistent with atelectasis unchanged compared to the previous study. The left lung is clear. A pleural density is present in the right hemithorax consistent with pleural effusion or hemothorax unchanged compared to the previous study. The heart is normal in size. The pulmonary vasculature is normal in appearance. The bony structure is intact. There is a fracture of the right eighth rib. IMPRESSION: 1. Right lower lobe atelectasis unchanged compared to the previous study. 2. Small right pleural effusion or hemothorax unchanged compared to the previous study. Electronically Signed by Brodie Colon MD 01/02/2019 09:30 A
--- NOTE | 2019-01-02 20:05 | DSES ---
DATE OF ADMISSION: 12/25/2018 DATE OF DISCHARGE: 01/02/2019 CONSULTANTS: Dr. Daniel Villaseñor DISCHARGE DIAGNOSES: Multiple right nondisplaced rib fractures. Pulmonary atelectasis. Small right-sided hemothorax. Altered mental status, suspect secondary to narcotics. History of atrial fibrillation. CVA with residual right-sided hemiparesis. Diabetes. Anxiety. Depression. History of gastrointestinal (GI) bleed with angioectasia. HOSPITALIZATION COURSE: The patient is an 83-year-old gentleman, presented to [facility] on 12/25/2018 after a mechanical fall. Diagnostic workup was performed. The patient was found to have multiple right-sided fractures and small to moderate size hemothorax. Cardiothoracic surgeon was contacted in the emergency room, and the patient was admitted under the hospitalist service. The patient's anticoagulation is on hold due to hemothorax and patient evaluated by the cardiothoracic surgeon and recommended conservative medical management. Patient later started having some altered mental status due to the IV morphine. Patient's pain medication was actively adjusted based on patient's clinical picture. Patient's mentation improved with pain medication adjustments. Later, the patient was found to have increased atelectatic changes from the chest imaging. Then, the patient was started on intermittent continuous positive airway pressure (CPAP) four times a day for the lung expansion and patient was monitored closely for the next several days. On 01/02/2019, the patient was determined stable for discharge with the recommendation to followup with primary care provider in 1 week. The patient's Eliquis should continue to be on hold until reevaluated by the healthcare provider. VITAL SIGNS: On the day of discharge show temperature 98.2, pulse is 94, respirations 20, blood pressure is 138/98, pulse oximetry is 95% in room air. LABORATORY DATA: WBC 11.5, hemoglobin 11.3, hematocrit 34.4, platelet count is 241. Sodium is 136, potassium 3.5, chloride 102, carbon dioxide 29, BUN 17, creatinine is 0.8, GFR greater than 60, fasting glucose 253, calcium is 8.2, magnesium 1.7. Microbiology: Blood culture showed no growth after 5 days times two sets. IMAGING STUDIES: CT of the head without contrast on 12/25/2018 showed moderate generalized atrophy and chronic ishemic changes. No acute intracranial process. No intracranial hemorrhage. CT of the chest without contrast demonstrated small to moderate left hemithorax with moderate mildly displaced fracture of the right lateral 8th posterolateral 9th and posterior right 10th. No evidence of pneumothorax. CT of the cervical spine without contrast demonstrated degenerative changes. No acute trauma or traumatic AP malalignment within the cervical spine. Chest x-ray on 12/25/2018 demonstrated plate-like atelectasis right base. Right lateral 8th rib fracture. Mild cardiomegaly. DISCHARGE MEDICATIONS: - carvedilol 6.25 mg by mouth twice a day - magnesium oxide 800 mg by mouth twice a day - Tylenol 650 mg by mouth every 4 hours as needed - atorvastatin 10 mg by mouth nightly - Bisacodyl 10 mg per rectum daily as needed - diltiazem 180 mg by mouth daily - fluoxetine 20 mg by mouth every morning - Levemir 12 units subcu daily - Milk of Magnesia 1200 mg by mouth daily as needed - metformin 500 mg by mouth twice a day - MiraLAX 17 grams by mouth daily - potassium chloride 20 mEq by mouth twice a day - Senna 17.2 mg by mouth twice a day - Flomax 0.4 mg by mouth daily DISCHARGE INSTRUCTIONS: Discontinue lines. Discharge to [facility]. Activity per rehabilitation instructions. Low salt diet as tolerated. Patient should followup with primary care provider in 1 week. Patient will continue to hold the Eliquis until evaluated by the healthcare provider. DISCHARGE CONDITION: Fair. DISCHARGE TIME: Greater than 30 minutes.
--- NOTE | 2019-01-03 13:59 | IPN ---
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 He is breathing better. His pain is well controlled, and his chest x-ray shows increasing resolution of his atelectasis. His vital signs show a maximum temperature (Tmax) of 98.2 with a heart rate that ranges between 77 and 93 with an irregular rate and rhythm with a respiratory rate of 16-19 without the use of accessory muscles, who is 99% to 95% saturated on room air, and whose blood pressure is ranging between 118/79 to 139/93. His intake and output over the past 24 hours has been recorded as 1360 in and 800 out for a positivity of 560 mL. He is taking by mouth intake much better at 1360 mL. On physical examination, his lungs show equal breath sounds on either side. There is no longer any E-A egophony, and there in no bronchophony. Percussion note is full to the diaphragm. He still has moderate tenderness to palpation on the inferolateral right chest. CARDIAC EXAMINATION: Is without murmurs, clicks, gallops, or rubs. I cannot feel his point of maximum impulse (PMI). S1 and S2 are normal. ABDOMEN: Is soft, nontender. Bowel sounds are positive. He is slightly distended and tympanitic. There is no hepatomegaly. EXTREMITIES: Show no pretibial edema. No calf tenderness. No differential swelling of the upper extremities. SKIN: Is warm, dry, and perfused without cyanosis or mottling, including that of the nail beds and the knees. NECK: Is supple. There is no jugular venous distention. No subcutaneous emphysema. Trachea is midline. MOUTH: Shows his mucous membranes to be pink and moist. Lips and commissures without lesions. There is no thrush. EYES: Show his pupils to be equal and reactive. NEUROLOGIC: Shows II-XII grossly intact. He is hemiparetic on the right side. PSYCHIATRIC: Shows him to be awake and alert and oriented times three with appropriate mood and affect and conversational. His white count today is 13.1 which is up from 10.4 yesterday. Hemoglobin and hematocrit are 11.1 and 34.2, unchanged from yesterday, with a platelet count of 221. Chemistries show a marginally low sodium of 132 with the remainder of his electrolytes normal with a BUN and creatinine of 21 and 0.76. Glucose is 231 with a calcium of 7.9 and a magnesium of 1.7. As noted above, his chest x-ray continue to show marked improvement. The atelectasis is resolving, although there is still some presence in the right lower lobe. Fluid in the fissure is less. I see no other infiltrates. IMPRESSION: 1. Rib fractures 8, 9, and 10, nondisplaced. 2. Small hemothorax. 3. Atrial fibrillation, on Eliquis. 4. Status post cerebrovascular accident (CVA) with right-sided hemiparesis. 5. Diabetes. 6. Hyperlipidemia. 7. Coronary artery disease. 8. Atelectasis right lower lobe, improving. 9. Pain control, improving. PLAN AND DISCUSSION: I can see no reason why he cannot be placed back at the [facility] tomorrow. His pain is being well controlled, and he is breathing well. I will continue the intermittent continuous positive airway pressure (CPAP) over today and tonight. I will take one more chest x-ray tomorrow. I will make arrangements to see him in about a week at [facility] with a chest x-ray.
== END 2019-01-02 10:40 | DRG 200 ==
LOC: M ED 20:43 → EDBD 20:43 → M ED INP 23:20 → M ICU 12-26 17:03 → M PCU 12-27 06:03 → M MSPAV 12-28 21:50
PROVIDERS: ADMIT Internal Medicine; ATTEND Internal Medicine
DX: S27.1XXA Traumatic hemothorax, initial encounter (principal); I69.351 Hemiplegia and hemiparesis following cerebral infarction affecting right dominant side; S22.41XA Multiple fractures of ribs, right side, initial encounter for closed fracture; J98.11 Atelectasis; I10 Essential (primary) hypertension; E78.5 Hyperlipidemia, unspecified; E11.9 Type 2 diabetes mellitus without complications; I48.91 Unspecified atrial fibrillation; I69.392 Facial weakness following cerebral infarction; W17.89XA Other fall from one level to another, initial encounter; K57.30 Diverticulosis of large intestine without perforation or abscess without bleeding; R41.82 Altered mental status, unspecified; N40.0 Benign prostatic hyperplasia without lower urinary tract symptoms; Y92.018 Other place in single-family (private) house as the place of occurrence of the external cause; Z79.01 Long term (current) use of anticoagulants; Z98.49 Cataract extraction status, unspecified eye; Z96.653 Presence of artificial knee joint, bilateral; Z79.4 Long term (current) use of insulin; Z79.899 Other long term (current) drug therapy; Z88.5 Allergy status to narcotic agent; T40.605A Adverse effect of unspecified narcotics, initial encounter

== ENCOUNTER → 2019-01-06 | Outpatient (REF) | payer MEDICARE ==
[~2019-01-06] MED LIST changes: +ARTI99.0 OD; +ARTI99.0 OU; +CARD180C4 PO; +CARV6.25 PO; +ENEMENE PR; +MAG400TA PO; +MILKSUS21 PO; +SENN-83 PO
[2019-01-06 14:24] LABS: HEMATOCRIT 35.9 % (42.0-52.0); HEMOGLOBIN 11.6 g/dl (13.5-17.5); MEAN CORPUSCULAR HGB CONC 32.3 g/dl (32.0-36.5); MEAN CORPUSCULAR VOLUME 80.3 fl (80.0-96.0); PLATELET COUNT, AUTOMATED 292 10^3/uL (150-450); RED BLOOD COUNT 4.47 10^6/uL (4.30-6.10); WHITE BLOOD COUNT 11.8 10^3/uL (4.0-10.0)
[2019-01-06 14:46] LABS: BLOOD UREA NITROGEN 14 MG/DL (7-18); CALCIUM LEVEL 8.4 MG/DL (8.8-10.2); CARBON DIOXIDE LEVEL 25 MEQ/L (21-32); CHLORIDE LEVEL 102 MEQ/L (98-107); CREATININE FOR GFR 1.03 MG/DL (0.70-1.30); GLOMERULAR FILTRATION RATE > 60.0 (>35); GLUCOSE, FASTING 217 MG/DL (70-100); POTASSIUM SERUM 5.5 MEQ/L (3.5-5.1); SODIUM LEVEL 134 MEQ/L (136-145)
== END ==
PROVIDERS: ATTEND Internal Medicine
DX: I95.9 Hypotension, unspecified (principal)

== ENCOUNTER → 2019-01-09 | Outpatient (REF) | payer MEDICARE | LOC: M RAD 10:33 | PROVIDERS: ATTEND Internal Medicine | DX: R53.1 Weakness (principal); I95.9 Hypotension, unspecified ==

== ENCOUNTER → 2019-01-09 | Outpatient (REF) | payer MEDICARE ==
--- NOTE | 2019-01-09 11:48 | REP ---
CHEST X-RAY: SITTING AP VIEW. HISTORY: Hemothorax. COMPARISON STUDY: January 02, 2019 FINDINGS: The right 8th posterolateral rib is broken in two places, and there is an adjacent fracture of the lateral aspect of the right 9th rib. Slight blunting of the right posterior pleural angle is seen, and a posterior pleural opacity is noted on lateral radiograph consistent with the history of right-sided hemothorax. This shows some improvement on lateral radiograph. Mild cardiomegaly is again observed. No infiltrate is seen. There is no evidence of pneumothorax. Left pleural angles are sharp. The aorta is tortuous. There are some degenerative changes in the thoracic spine. IMPRESSION: No acute abnormality. Interval slight decrease in the size of the pleural opacity in the right base posteriorly. Electronically Signed by Scott Kyle MD 01/09/2019 02:28 P
== END ==
PROVIDERS: ATTEND Internal Medicine
DX: I51.7 Cardiomegaly (principal); S22.41XA Multiple fractures of ribs, right side, initial encounter for closed fracture; Y92.89 Other specified places as the place of occurrence of the external cause; Y93.89 Activity, other specified; X58.XXXA Exposure to other specified factors, initial encounter; Y99.8 Other external cause status

== ENCOUNTER → 2019-01-11 | Outpatient (REF) | payer MEDICARE ==
[2019-01-11 09:20] LABS: HEMATOCRIT 38.1 % (42.0-52.0); HEMOGLOBIN 12.3 g/dl (13.5-17.5); MEAN CORPUSCULAR HEMOGLOBIN 25.9 pg (27.0-33.0); MEAN CORPUSCULAR HGB CONC 32.3 g/dl (32.0-36.5); MEAN CORPUSCULAR VOLUME 80.2 fl (80.0-96.0); PLATELET COUNT, AUTOMATED 271 10^3/uL (150-450); RED BLOOD COUNT 4.75 10^6/uL (4.30-6.10); WHITE BLOOD COUNT 10.7 10^3/uL (4.0-10.0)
[2019-01-11 09:34] LABS: BLOOD UREA NITROGEN 11 MG/DL (7-18); CALCIUM LEVEL 8.5 MG/DL (8.8-10.2); CARBON DIOXIDE LEVEL 29 MEQ/L (21-32); CHLORIDE LEVEL 104 MEQ/L (98-107); CREATININE FOR GFR 0.77 MG/DL (0.70-1.30); GLOMERULAR FILTRATION RATE > 60.0 (>35); GLUCOSE, FASTING 51 MG/DL (70-100); MAGNESIUM LEVEL 1.9 MG/DL (1.8-2.4); POTASSIUM SERUM 3.7 MEQ/L (3.5-5.1); SODIUM LEVEL 140 MEQ/L (136-145)
[2019-01-11 22:44] LABS: APPEARANCE, URINE HAZY (CLEAR); BACTERIA, URINE AUTO NEGATIVE (NEGATIVE); BILIRUBIN, URINE AUTO NEGATIVE (NEGATIVE); BLOOD, URINE BLOOD NEGATIVE (NEGATIVE); COLOR, URINE YELLOW (YELLOW); GLUCOSE, URINE (UA) AUTO NEGATIVE (NEGATIVE); KETONE, URINE AUTO NEGATIVE (NEGATIVE); LEUKOCYTE ESTERASE, URINE AUTO NEGATIVE (NEGATIVE); MUCUS, URINE SMALL (NEGATIVE); NITRITE, URINE AUTO NEGATIVE (NEGATIVE); PROTEIN, URINE AUTO NEGATIVE (NEGATIVE); RBC, URINE AUTO 3 /HPF (0-3); SPECIFIC GRAVITY URINE AUTO 1.011 (1.002-1.035); SQUAMOUS EPITHELIAL CELL UR AU 0 /HPF (0-6); UROBILINOGEN, URINE AUTO 0.2 mg/dL (0.0-2.0); WBC, URINE AUTO 1 /HPF (0-3)
== END ==
PROVIDERS: ATTEND Internal Medicine
DX: E11.9 Type 2 diabetes mellitus without complications (principal); R41.82 Altered mental status, unspecified

== ENCOUNTER → 2019-01-13 | Outpatient (CLI) | payer MEDICARE ==
--- NOTE | 2019-01-13 16:57 | REP ---
MRI brain without contrast: History: Altered mental status. Comparison CT study is from December 25, 2018. Technique: Axial and sagittal imaging planes are utilized for T1 and T2-weighted scans. Sequences include spin-echo, fast spin echo, FLAIR, and diffusion weighted sequences. MRI findings: No bony calvarial lesion is appreciated. Craniocervical junction and upper cervical cord is normal in appearance. There is fairly advanced diffuse cerebral atrophy. Cerebellar atrophy is also noted. Concordant ventricular enlargement is seen. Small vessel atherosclerotic changes are noted. There is an old lacunar infarct in the left basal ganglia involving the region of the posterior limb of the left internal capsule. There is no evidence to suggest acute ischemia on diffusion weighted scans. No intracranial hemorrhage is seen. No mass, extra-axial fluid collection, or midline shift is seen. Impression: Advanced diffuse cerebral and cerebellar atrophy. Small vessel changes. No acute intracranial lesion. Electronically Signed by Scott Kyle MD 01/13/2019 08:00 P
== END ==
LOC: M RAD 14:01
PROVIDERS: ATTEND Internal Medicine
DX: G31.9 Degenerative disease of nervous system, unspecified (principal)

== ENCOUNTER → 2019-01-17 | Outpatient (REF) | payer MEDICARE ==
[2019-01-17 09:27] LABS: HEMOGLOBIN 11.9 g/dl (13.5-17.5); MEAN CORPUSCULAR HEMOGLOBIN 25.6 pg (27.0-33.0); MEAN CORPUSCULAR HGB CONC 32.2 g/dl (32.0-36.5); MEAN CORPUSCULAR VOLUME 79.7 fl (80.0-96.0); PLATELET COUNT, AUTOMATED 273 10^3/uL (150-450); RED BLOOD COUNT 4.64 10^6/uL (4.30-6.10)
[2019-01-17 09:39] LABS: BLOOD UREA NITROGEN 11 MG/DL (7-18); CALCIUM LEVEL 8.7 MG/DL (8.8-10.2); CARBON DIOXIDE LEVEL 28 MEQ/L (21-32); CHLORIDE LEVEL 103 MEQ/L (98-107); CREATININE FOR GFR 0.83 MG/DL (0.70-1.30); GLOMERULAR FILTRATION RATE > 60.0 (>35); GLUCOSE, FASTING 182 MG/DL (70-100); MAGNESIUM LEVEL 1.9 MG/DL (1.8-2.4); POTASSIUM SERUM 4.1 MEQ/L (3.5-5.1); SODIUM LEVEL 138 MEQ/L (136-145)
== END ==
PROVIDERS: ATTEND Internal Medicine
DX: I10 Essential (primary) hypertension (principal)

== ENCOUNTER → 2019-01-24 | Outpatient (REF) | payer MEDICARE ==
[2019-01-24 08:44] LABS: HEMATOCRIT 39.3 % (42.0-52.0); HEMOGLOBIN 12.6 g/dl (13.5-17.5); MEAN CORPUSCULAR HEMOGLOBIN 25.8 pg (27.0-33.0); MEAN CORPUSCULAR HGB CONC 32.1 g/dl (32.0-36.5); MEAN CORPUSCULAR VOLUME 80.5 fl (80.0-96.0); PLATELET COUNT, AUTOMATED 217 10^3/uL (150-450); RED BLOOD COUNT 4.88 10^6/uL (4.30-6.10); WHITE BLOOD COUNT 10.3 10^3/uL (4.0-10.0)
[2019-01-24 09:08] LABS: BLOOD UREA NITROGEN 12 MG/DL (7-18); CALCIUM LEVEL 8.5 MG/DL (8.8-10.2); CARBON DIOXIDE LEVEL 28 MEQ/L (21-32); CHLORIDE LEVEL 101 MEQ/L (98-107); GLOMERULAR FILTRATION RATE > 60.0 (>35); GLUCOSE, FASTING 86 MG/DL (70-100); MAGNESIUM LEVEL 1.9 MG/DL (1.8-2.4); POTASSIUM SERUM 3.7 MEQ/L (3.5-5.1); SODIUM LEVEL 138 MEQ/L (136-145)
== END ==
PROVIDERS: ATTEND Internal Medicine
DX: I10 Essential (primary) hypertension (principal)

== ENCOUNTER → 2019-02-07 | Outpatient (REF) | payer MEDICARE ==
[2019-02-07 09:22] LABS: HEMATOCRIT 39.3 % (42.0-52.0); HEMOGLOBIN 12.4 g/dl (13.5-17.5); MEAN CORPUSCULAR HEMOGLOBIN 26.1 pg (27.0-33.0); MEAN CORPUSCULAR HGB CONC 31.6 g/dl (32.0-36.5); MEAN CORPUSCULAR VOLUME 82.6 fl (80.0-96.0); PLATELET COUNT, AUTOMATED 258 10^3/uL (150-450); RED BLOOD COUNT 4.76 10^6/uL (4.30-6.10)
[2019-02-07 10:28] LABS: BLOOD UREA NITROGEN 22 MG/DL (7-18); CALCIUM LEVEL 8.5 MG/DL (8.8-10.2); CARBON DIOXIDE LEVEL 28 MEQ/L (21-32); CHLORIDE LEVEL 104 MEQ/L (98-107); GLOMERULAR FILTRATION RATE > 60.0 (>35); GLUCOSE, FASTING 47 MG/DL (70-100); MAGNESIUM LEVEL 2.3 MG/DL (1.8-2.4); POTASSIUM SERUM 4.1 MEQ/L (3.5-5.1); SODIUM LEVEL 141 MEQ/L (136-145)
== END ==
PROVIDERS: ATTEND Internal Medicine
DX: I10 Essential (primary) hypertension (principal)

== ENCOUNTER → 2019-02-14 | Outpatient (REF) | payer MEDICARE ==
[2019-02-14 09:46] LABS: HEMATOCRIT 40.8 % (42.0-52.0); HEMOGLOBIN 13.2 g/dl (13.5-17.5); MEAN CORPUSCULAR HGB CONC 32.4 g/dl (32.0-36.5); MEAN CORPUSCULAR VOLUME 83.6 fl (80.0-96.0); PLATELET COUNT, AUTOMATED 244 10^3/uL (150-450); RED BLOOD COUNT 4.88 10^6/uL (4.30-6.10); WHITE BLOOD COUNT 9.5 10^3/uL (4.0-10.0)
== END ==
PROVIDERS: ATTEND Internal Medicine
DX: D64.9 Anemia, unspecified (principal)

== ENCOUNTER → 2019-03-07 | Outpatient (REF) | payer MEDICARE ==
[2019-03-07 09:37] LABS: HEMATOCRIT 36.4 % (42.0-52.0); HEMOGLOBIN 11.6 g/dl (13.5-17.5); MEAN CORPUSCULAR HEMOGLOBIN 26.4 pg (27.0-33.0); MEAN CORPUSCULAR HGB CONC 31.9 g/dl (32.0-36.5); MEAN CORPUSCULAR VOLUME 82.9 fl (80.0-96.0); PLATELET COUNT, AUTOMATED 256 10^3/uL (150-450); RED BLOOD COUNT 4.39 10^6/uL (4.30-6.10); WHITE BLOOD COUNT 9.2 10^3/uL (4.0-10.0)
[2019-03-07 10:11] LABS: BLOOD UREA NITROGEN 15 MG/DL (7-18); CALCIUM LEVEL 8.2 MG/DL (8.8-10.2); CARBON DIOXIDE LEVEL 29 MEQ/L (21-32); CHLORIDE LEVEL 102 MEQ/L (98-107); CREATININE FOR GFR 0.64 MG/DL (0.70-1.30); GLOMERULAR FILTRATION RATE > 60.0 (>35); GLUCOSE, FASTING 85 MG/DL (70-100); MAGNESIUM LEVEL 2.1 MG/DL (1.8-2.4); POTASSIUM SERUM 3.9 MEQ/L (3.5-5.1); SODIUM LEVEL 139 MEQ/L (136-145)
== END ==
PROVIDERS: ATTEND Internal Medicine
DX: I10 Essential (primary) hypertension (principal)

== ENCOUNTER → 2019-04-11 | Outpatient (REF) | payer MEDICARE ==
[2019-04-11 10:45] LABS: HEMATOCRIT 38.8 % (42.0-52.0); HEMOGLOBIN 12.4 g/dl (13.5-17.5); MEAN CORPUSCULAR HEMOGLOBIN 27.4 pg (27.0-33.0); MEAN CORPUSCULAR VOLUME 85.8 fl (80.0-96.0); PLATELET COUNT, AUTOMATED 207 10^3/uL (150-450); RED BLOOD COUNT 4.52 10^6/uL (4.30-6.10); WHITE BLOOD COUNT 11.5 10^3/uL (4.0-10.0)
[2019-04-11 11:14] LABS: BLOOD UREA NITROGEN 20 MG/DL (7-18); CALCIUM LEVEL 8.9 MG/DL (8.8-10.2); CARBON DIOXIDE LEVEL 28 MEQ/L (21-32); CHLORIDE LEVEL 102 MEQ/L (98-107); CREATININE FOR GFR 0.88 MG/DL (0.70-1.30); GLOMERULAR FILTRATION RATE > 60.0 (>35); GLUCOSE, FASTING 194 MG/DL (70-100); MAGNESIUM LEVEL 2.2 MG/DL (1.8-2.4); POTASSIUM SERUM 4.3 MEQ/L (3.5-5.1); SODIUM LEVEL 138 MEQ/L (136-145)
== END ==
PROVIDERS: ATTEND Internal Medicine
DX: I10 Essential (primary) hypertension (principal)

== ENCOUNTER → 2019-05-16 | Outpatient (REF) | payer MEDICARE ==
[~2019-05-16] MED LIST changes: -ARTI99.0 OD; -ARTI99.0 OU; +ARTIDRO2 OD; +ARTIDRO2 OU
[2019-05-16 10:39] LABS: BLOOD UREA NITROGEN 17 MG/DL (7-18); CALCIUM LEVEL 8.5 MG/DL (8.8-10.2); CARBON DIOXIDE LEVEL 26 MEQ/L (21-32); CHLORIDE LEVEL 105 MEQ/L (98-107); CREATININE FOR GFR 0.81 MG/DL (0.70-1.30); GLOMERULAR FILTRATION RATE > 60.0 (>35); GLUCOSE, FASTING 119 MG/DL (70-100); SODIUM LEVEL 140 MEQ/L (136-145)
== END ==
PROVIDERS: ATTEND Physician Assistant
DX: N18.9 Chronic kidney disease, unspecified (principal)

== ENCOUNTER → 2019-05-30 | Outpatient (REF) | payer MEDICARE ==
[2019-05-30 11:20] LABS: BLOOD UREA NITROGEN 16 MG/DL (7-18); CALCIUM LEVEL 8.7 MG/DL (8.8-10.2); CARBON DIOXIDE LEVEL 31 MEQ/L (21-32); CHLORIDE LEVEL 99 MEQ/L (98-107); CREATININE FOR GFR 0.89 MG/DL (0.70-1.30); GLOMERULAR FILTRATION RATE > 60.0 (>35); GLUCOSE, FASTING 137 MG/DL (70-100); POTASSIUM SERUM 3.7 MEQ/L (3.5-5.1); SODIUM LEVEL 138 MEQ/L (136-145)
== END ==
PROVIDERS: ATTEND Internal Medicine
DX: N18.9 Chronic kidney disease, unspecified (principal)

== ENCOUNTER → 2019-06-07 | Outpatient (REF) | payer MEDICARE | PROVIDERS: ATTEND Family Medicine | DX: N18.9 Chronic kidney disease, unspecified (principal); D64.9 Anemia, unspecified; E11.9 Type 2 diabetes mellitus without complications ==

== ENCOUNTER → 2019-09-28 | Outpatient (REF) | payer MEDICARE ==
[~2019-09-28] MED LIST changes: +FLUO20CA20 PO; -FLUO20CA8 PO; -SIMV20TA2 PO; +SIMV20TA22 PO
[2019-09-28 10:01] LABS: HEMATOCRIT 41.6 % (42.0-52.0); HEMOGLOBIN 13.5 g/dl (13.5-17.5); MEAN CORPUSCULAR HEMOGLOBIN 26.7 pg (27.0-33.0); MEAN CORPUSCULAR HGB CONC 32.5 g/dl (32.0-36.5); MEAN CORPUSCULAR VOLUME 82.2 fl (80.0-96.0); PLATELET COUNT, AUTOMATED 182 10^3/uL (150-450); RED BLOOD COUNT 5.06 10^6/uL (4.30-6.10); WHITE BLOOD COUNT 9.3 10^3/uL (4.0-10.0)
[2019-09-28 10:15] LABS: HEMOGLOBIN A1c 8.3 %
[2019-09-28 10:23] LABS: BLOOD UREA NITROGEN 14 MG/DL (7-18); CALCIUM LEVEL 8.7 MG/DL (8.8-10.2); CARBON DIOXIDE LEVEL 28 MEQ/L (21-32); CHLORIDE LEVEL 97 MEQ/L (98-107); CREATININE FOR GFR 0.86 MG/DL (0.70-1.30); GLOMERULAR FILTRATION RATE > 60.0 (>35); GLUCOSE, FASTING 92 MG/DL (70-100); POTASSIUM SERUM 4.1 MEQ/L (3.5-5.1); SODIUM LEVEL 135 MEQ/L (136-145)
== END ==
PROVIDERS: ATTEND Internal Medicine
DX: E11.9 Type 2 diabetes mellitus without complications (principal); Z79.899 Other long term (current) drug therapy

== ENCOUNTER → 2020-01-22 | Outpatient (REF) ==
[~2020-01-22] MED LIST changes: -ARTIDRO2 OD; -ARTIDRO2 OU; -FLUO20CA19 PO; +FLUO20CA22 PO; +POLYOPD OD; +POLYOPD OU
== END ==
PROVIDERS: ATTEND Internal Medicine
DX: Z03.818 Encounter for observation for suspected exposure to other biological agents ruled out (principal)

== ENCOUNTER → 2020-01-24 | Outpatient (REF) | payer MEDICARE ==
[~2020-01-24] MED LIST changes: -ASPI81TA85; +ASPI81TA86; -LISI-538 PO; +LISI20TA33 PO; -MAG400TA PO; +MAGN400T35 PO
[2020-01-24 11:52] LABS: BLOOD UREA NITROGEN 37 MG/DL (7-18); CALCIUM LEVEL 8.9 MG/DL (8.8-10.2); CARBON DIOXIDE LEVEL 28 MEQ/L (21-32); CHLORIDE LEVEL 98 MEQ/L (98-107); CREATININE FOR GFR 1.13 MG/DL (0.70-1.30); GLOMERULAR FILTRATION RATE > 60.0 (>35); GLUCOSE, FASTING 141 MG/DL (70-100); POTASSIUM SERUM 4.5 MEQ/L (3.5-5.1); SODIUM LEVEL 136 MEQ/L (136-145)
== END ==
PROVIDERS: ATTEND Internal Medicine
DX: E11.9 Type 2 diabetes mellitus without complications (principal)

== ENCOUNTER → 2020-02-06 | Outpatient (REF) | payer MEDICARE ==
[~2020-02-06] MED LIST changes: +ASPI81TA85; -ASPI81TA86; +LISI-538 PO; -LISI20TA33 PO; +MAG400TA PO; -MAGN400T35 PO
[2020-02-06 11:54] LABS: HEMATOCRIT 42.7 % (42.0-52.0); MEAN CORPUSCULAR HEMOGLOBIN 28.2 pg (27.0-33.0); MEAN CORPUSCULAR HGB CONC 32.8 g/dl (32.0-36.5); MEAN CORPUSCULAR VOLUME 86.1 fl (80.0-96.0); PLATELET COUNT, AUTOMATED 217 10^3/uL (150-450); RED BLOOD COUNT 4.96 10^6/uL (4.30-6.10); WHITE BLOOD COUNT 14.3 10^3/uL (4.0-10.0)
[2020-02-06 12:32] LABS: FREE T4 1.23 NG/DL (0.76-1.46); THYROID STIMULATING HORMONE 1.66 uIU/ML (0.358-3.740)
== END ==
PROVIDERS: ATTEND Internal Medicine
DX: R53.83 Other fatigue (principal)

== ENCOUNTER → 2020-02-07 | Outpatient (REF) | payer MEDICARE ==
[2020-02-07 10:46] LABS: HEMOGLOBIN 13.7 g/dl (13.5-17.5); MEAN CORPUSCULAR HEMOGLOBIN 28.8 pg (27.0-33.0); MEAN CORPUSCULAR HGB CONC 34.3 g/dl (32.0-36.5); MEAN CORPUSCULAR VOLUME 84.2 fl (80.0-96.0); PLATELET COUNT, AUTOMATED 197 10^3/uL (150-450); RED BLOOD COUNT 4.75 10^6/uL (4.30-6.10); WHITE BLOOD COUNT 8.8 10^3/uL (4.0-10.0)
== END ==
PROVIDERS: ATTEND Internal Medicine
DX: D72.829 Elevated white blood cell count, unspecified (principal)

== ENCOUNTER → 2020-02-16 | Outpatient (REF) | payer MEDICARE ==
[2020-02-16 11:32] LABS: BLOOD UREA NITROGEN 24 MG/DL (7-18); CALCIUM LEVEL 8.8 MG/DL (8.8-10.2); CARBON DIOXIDE LEVEL 29 MEQ/L (21-32); CHLORIDE LEVEL 98 MEQ/L (98-107); CREATININE FOR GFR 0.88 MG/DL (0.70-1.30); GLOMERULAR FILTRATION RATE > 60.0 (>35); GLUCOSE, FASTING 146 MG/DL (70-100); POTASSIUM SERUM 4.2 MEQ/L (3.5-5.1); SODIUM LEVEL 135 MEQ/L (136-145)
== END ==
PROVIDERS: ATTEND Internal Medicine
DX: I10 Essential (primary) hypertension (principal)

== ENCOUNTER → 2020-03-14 | Outpatient (REF) | payer MEDICARE ==
[2020-03-14 10:14] LABS: HEMATOCRIT 42.6 % (42.0-52.0); HEMOGLOBIN 14.3 g/dl (13.5-17.5); MEAN CORPUSCULAR HEMOGLOBIN 29.4 pg (27.0-33.0); MEAN CORPUSCULAR HGB CONC 33.6 g/dl (32.0-36.5); MEAN CORPUSCULAR VOLUME 87.7 fl (80.0-96.0); PLATELET COUNT, AUTOMATED 181 10^3/uL (150-450); RED BLOOD COUNT 4.86 10^6/uL (4.30-6.10); WHITE BLOOD COUNT 9.5 10^3/uL (4.0-10.0)
[2020-03-14 10:34] LABS: BLOOD UREA NITROGEN 21 MG/DL (7-18); CALCIUM LEVEL 8.8 MG/DL (8.8-10.2); CARBON DIOXIDE LEVEL 27 MEQ/L (21-32); CHLORIDE LEVEL 103 MEQ/L (98-107); CREATININE FOR GFR 0.95 MG/DL (0.70-1.30); GLOMERULAR FILTRATION RATE > 60.0 (>35); GLUCOSE, FASTING 156 MG/DL (70-100); POTASSIUM SERUM 3.9 MEQ/L (3.5-5.1); SODIUM LEVEL 139 MEQ/L (136-145)
[2020-03-14 11:10] LABS: HEMOGLOBIN A1c 7.5 %
== END ==
PROVIDERS: ATTEND Internal Medicine
DX: E11.9 Type 2 diabetes mellitus without complications (principal)

== ENCOUNTER → 2020-05-15 | Outpatient (REF) ==
[~2020-05-15] MED LIST changes: -ASPI81TA85; +ASPI81TA86
--- NOTE | 2020-06-04 15:22 | REPPI ---
PORTABLE ABDOMINAL RADIOGRAPH CLINICAL: Constipation and pain. TECHNIQUE: Portable supine view of the abdomen and pelvis. FINDINGS: Marked fecal stasis and presumed constipation with possible ileus. No definite small bowel obstruction or perforation. Skeletal structures demonstrate osteopenia and degenerative changes. IMPRESSION: Marked fecal stasis and constipation. Possible ileus. MTDD
== END ==
PROVIDERS: ATTEND Physician Assistant
DX: K59.00 Constipation, unspecified (principal); R52 Pain, unspecified

== ENCOUNTER → 2020-06-07 | Outpatient (CLI) | payer MEDICARE ==
[~2020-06-07] MED LIST changes: +E-Z-PAQUE 96% w/w SUSP 176GM BTL As Ordered ONE; +VARIBAR NECTAR 40% w/v 240ML SUSP BTL As Ordered ONE; +VARIBAR PUDDING 40% w/v 230ML TUBE As Ordered ONE
--- NOTE | 2020-06-15 13:27 | REP ---
COOKIE SWALLOW This procedure was performed by SONIA Terrell, under the direct supervision of Dr. Jack.. The procedure was performed with Candy Wild and Karol Arriaga from speech pathology present. 5 mL aliquots of thin, pudding, mixed, soft, and hard food consistency barium was administered. Flash penetration was visualized with thin consistency barium. A detailed report of this examination will be provided by speech pathology. 3.2 minutes of fluoroscopy time was utilized for this procedure. AZAM
== END ==
LOC: M RAD 11:11
PROVIDERS: ATTEND Physician Assistant
DX: R13.10 Dysphagia, unspecified (principal)

== ENCOUNTER → 2020-07-10 | Outpatient (REF) | payer MEDICARE ==
[~2020-07-10] MED LIST changes: -E-Z-PAQUE 96% w/w SUSP 176GM BTL As Ordered ONE; -VARIBAR NECTAR 40% w/v 240ML SUSP BTL As Ordered ONE; -VARIBAR PUDDING 40% w/v 230ML TUBE As Ordered ONE
== END ==
LOC: M LAB REF 18:44
PROVIDERS: ATTEND Dermatology
DX: C44.319 Basal cell carcinoma of skin of other parts of face (principal); C44.321 Squamous cell carcinoma of skin of nose; C44.629 Squamous cell carcinoma of skin of left upper limb, including shoulder; C44.619 Basal cell carcinoma of skin of left upper limb, including shoulder; C44.519 Basal cell carcinoma of skin of other part of trunk; C44.719 Basal cell carcinoma of skin of left lower limb, including hip; L82.1 Other seborrheic keratosis

== ENCOUNTER → 2020-07-18 | Outpatient (REF) | PROVIDERS: ATTEND Internal Medicine | DX: Z20.828 Contact with and (suspected) exposure to other viral communicable diseases (principal) ==

== ENCOUNTER → 2020-07-25 | Outpatient (REF) | payer MEDICARE ==
[~2020-07-25] MED LIST changes: -LISI-538 PO; +LISI20TA33 PO; -MAG400TA PO; +MAGN400T35 PO
== END ==
LOC: EDSTATUS 09-03 13:45
PROVIDERS: ATTEND Internal Medicine
DX: Z20.828 Contact with and (suspected) exposure to other viral communicable diseases (principal)

== ENCOUNTER → 2020-07-31 | Outpatient (REF) | payer MEDICARE | PROVIDERS: ATTEND Internal Medicine | DX: Z20.828 Contact with and (suspected) exposure to other viral communicable diseases (principal) ==

== ENCOUNTER → 2020-08-18 | Outpatient (REF) ==
[~2020-08-18] MED LIST changes: +LISI-538 PO; -LISI20TA33 PO; +MAG400TA PO; -MAGN400T35 PO
== END ==
PROVIDERS: ATTEND Internal Medicine
DX: Z20.828 Contact with and (suspected) exposure to other viral communicable diseases (principal)

== ENCOUNTER → 2020-08-22 | Outpatient (REF) | payer MEDICARE ==
[2020-08-22 14:54] LABS: INFLUENZA A AMPLIFICATION NEGATIVE (NEGATIVE); INFLUENZA B AMPLIFICATION NEGATIVE (NEGATIVE)
== END ==
PROVIDERS: ATTEND Internal Medicine
DX: Z20.828 Contact with and (suspected) exposure to other viral communicable diseases (principal)
CPT/HCPCS: 87502; U0003

== ENCOUNTER → 2020-08-28 | Outpatient (REF) | payer MEDICARE | PROVIDERS: ATTEND Internal Medicine | DX: Z20.828 Contact with and (suspected) exposure to other viral communicable diseases (principal) ==

== ENCOUNTER → 2020-09-03 | Outpatient (REF) | payer MEDICARE | PROVIDERS: ATTEND Internal Medicine | DX: Z20.828 Contact with and (suspected) exposure to other viral communicable diseases (principal) ==

== ENCOUNTER → 2020-09-04 | Outpatient (REF) | payer MEDICARE | PROVIDERS: ATTEND Physician Assistant | DX: E61.2 Magnesium deficiency (principal) ==

== ENCOUNTER → 2020-09-09 | Outpatient (REF) | payer MEDICARE | PROVIDERS: ATTEND Internal Medicine | DX: Z20.822 Contact with and (suspected) exposure to COVID-19 (principal) ==

== ENCOUNTER → 2020-09-13 | Outpatient (REF) | payer MEDICARE | PROVIDERS: ATTEND Internal Medicine | DX: Z20.822 Contact with and (suspected) exposure to COVID-19 (principal) ==

== ENCOUNTER → 2020-09-18 | Outpatient (REF) | payer MEDICARE | PROVIDERS: ATTEND Internal Medicine | DX: Z20.822 Contact with and (suspected) exposure to COVID-19 (principal) ==

== ENCOUNTER → 2020-09-23 | Outpatient (REF) | payer MEDICARE ==
[~2020-09-23] MED LIST changes: -LISI-538 PO; +LISI20TA33 PO; -MAG400TA PO; +MAGN400T35 PO
[2020-09-23 12:04] LABS: HEMATOCRIT 41.4 % (42.0-52.0); HEMOGLOBIN 13.2 g/dl (13.5-17.5); MEAN CORPUSCULAR HEMOGLOBIN 28.9 pg (27.0-33.0); MEAN CORPUSCULAR HGB CONC 31.9 g/dl (32.0-36.5); MEAN CORPUSCULAR VOLUME 90.6 fl (80.0-96.0); PLATELET COUNT, AUTOMATED 172 10^3/uL (150-450); RED BLOOD COUNT 4.57 10^6/uL (4.30-6.10); WHITE BLOOD COUNT 8.2 10^3/uL (4.0-10.0)
[2020-09-23 12:55] LABS: BLOOD UREA NITROGEN 25 MG/DL (7-18); CARBON DIOXIDE LEVEL 28 MEQ/L (21-32); CHLORIDE LEVEL 100 MEQ/L (98-107); CREATININE FOR GFR 1.08 MG/DL (0.70-1.30); GLOMERULAR FILTRATION RATE > 60.0 (>35); GLUCOSE, FASTING 371 MG/DL (70-100); SODIUM LEVEL 136 MEQ/L (136-145)
[2020-09-23 14:08] LABS: HEMOGLOBIN A1c 8.1 %
== END ==
PROVIDERS: ATTEND Internal Medicine
DX: E11.9 Type 2 diabetes mellitus without complications (principal)

== ENCOUNTER → 2020-09-25 | Outpatient (REF) | payer MEDICARE ==
[~2020-09-25] MED LIST changes: +LISI-538 PO; -LISI20TA33 PO; +MAG400TA PO; -MAGN400T35 PO
== END ==
PROVIDERS: ATTEND Internal Medicine
DX: Z20.822 Contact with and (suspected) exposure to COVID-19 (principal)

== ENCOUNTER → 2020-10-02 | Outpatient (REF) | payer MEDICARE | PROVIDERS: ATTEND Internal Medicine | DX: Z20.822 Contact with and (suspected) exposure to COVID-19 (principal) ==

== ENCOUNTER → 2020-10-09 | Outpatient (REF) | payer MEDICARE | PROVIDERS: ATTEND Internal Medicine | DX: Z20.822 Contact with and (suspected) exposure to COVID-19 (principal) ==

== ENCOUNTER → 2020-10-16 | Outpatient (REF) ==
[~2020-10-16] MED LIST changes: -LISI-538 PO; +LISI20TA33 PO; -MAG400TA PO; +MAGN400T35 PO
== END ==
PROVIDERS: ATTEND Internal Medicine
DX: Z20.822 Contact with and (suspected) exposure to COVID-19 (principal)

== ENCOUNTER → 2020-10-23 | Outpatient (REF) | PROVIDERS: ATTEND Internal Medicine | DX: Z20.822 Contact with and (suspected) exposure to COVID-19 (principal) ==

== ENCOUNTER → 2020-10-29 | Outpatient (REF) | payer MEDICARE | LOC: M LAB REF 13:47 | PROVIDERS: ATTEND Dermatology | DX: C44.519 Basal cell carcinoma of skin of other part of trunk (principal); Z94.5 Skin transplant status ==

== ENCOUNTER → 2020-10-30 | Outpatient (REF) | payer MEDICARE | PROVIDERS: ATTEND Internal Medicine | DX: Z20.822 Contact with and (suspected) exposure to COVID-19 (principal) ==

== ENCOUNTER → 2020-11-06 | Outpatient (REF) | payer MEDICARE | PROVIDERS: ATTEND Internal Medicine | DX: Z20.822 Contact with and (suspected) exposure to COVID-19 (principal) ==

== ENCOUNTER → 2020-11-13 | Outpatient (REF) | payer MEDICARE | PROVIDERS: ATTEND Internal Medicine | DX: Z11.52 Encounter for screening for COVID-19 (principal) ==

== ENCOUNTER → 2020-11-19 | Outpatient (REF) | payer MEDICARE | LOC: M LAB REF 19:23 | PROVIDERS: ATTEND Dermatology | DX: C44.719 Basal cell carcinoma of skin of left lower limb, including hip (principal) ==

== ENCOUNTER → 2020-12-03 | Outpatient (REF) | payer MEDICARE ==
[~2020-12-03] MED LIST changes: +MILK400S12 PO; -MILKSUS21 PO
== END ==
LOC: M LAB REF 11:11
PROVIDERS: ATTEND Dermatology
DX: D23.72 Other benign neoplasm of skin of left lower limb, including hip (principal)

== ENCOUNTER → 2020-12-13 | Outpatient (REF) | payer MEDICARE ==
[~2020-12-13] MED LIST changes: -MILK400S12 PO; +MILKSUS21 PO
[2020-12-13 15:46] LABS: INFLUENZA A AMPLIFICATION NEGATIVE (NEGATIVE); INFLUENZA B AMPLIFICATION NEGATIVE (NEGATIVE)
== END ==
PROVIDERS: ATTEND Internal Medicine
DX: Z11.52 Encounter for screening for COVID-19 (principal)

== ENCOUNTER → 2020-12-17 | Outpatient (REF) | payer MEDICARE ==
[~2020-12-17] MED LIST changes: +MILK400S12 PO; -MILKSUS21 PO
== END ==
PROVIDERS: ATTEND Internal Medicine
DX: Z20.822 Contact with and (suspected) exposure to COVID-19 (principal)

== ENCOUNTER → 2021-01-17 | Outpatient (REF) | payer MEDICARE ==
[2021-01-17 09:33] LABS: HEMATOCRIT 42.5 % (42.0-52.0); HEMOGLOBIN 13.7 g/dl (13.5-17.5); MEAN CORPUSCULAR HEMOGLOBIN 28.5 pg (27.0-33.0); MEAN CORPUSCULAR HGB CONC 32.2 g/dl (32.0-36.5); MEAN CORPUSCULAR VOLUME 88.4 fl (80.0-96.0); PLATELET COUNT, AUTOMATED 172 10^3/uL (150-450); RED BLOOD COUNT 4.81 10^6/uL (4.30-6.10); WHITE BLOOD COUNT 8.6 10^3/uL (4.0-10.0)
[2021-01-17 10:03] LABS: HEMOGLOBIN A1c 10.3 %
[2021-01-17 10:11] LABS: BLOOD UREA NITROGEN 29 MG/DL (7-18); CALCIUM LEVEL 9.1 MG/DL (8.8-10.2); CARBON DIOXIDE LEVEL 30 MEQ/L (21-32); CHLORIDE LEVEL 103 MEQ/L (98-107); CREATININE FOR GFR 0.92 MG/DL (0.70-1.30); FREE T3 1.7 PG/ML (2.2-4.0); FREE T4 0.99 NG/DL (0.76-1.46); GLOMERULAR FILTRATION RATE > 60.0 (>35); GLUCOSE, FASTING 195 MG/DL (70-100); POTASSIUM SERUM 4.2 MEQ/L (3.5-5.1); SODIUM LEVEL 139 MEQ/L (136-145); THYROID STIMULATING HORMONE 0.746 uIU/ML (0.358-3.740)
== END ==
PROVIDERS: ATTEND Internal Medicine
DX: R53.83 Other fatigue (principal); Z79.899 Other long term (current) drug therapy

== ENCOUNTER → 2021-02-13 | Outpatient (REF) | payer MEDICARE | LOC: M LAB REF 14:08 | PROVIDERS: ATTEND Dermatology | DX: C44.719 Basal cell carcinoma of skin of left lower limb, including hip (principal) ==

== ENCOUNTER → 2021-03-20 | Outpatient (REF) | payer MEDICARE ==
[~2021-03-20] MED LIST changes: +FLUO-96 PO; -FLUO20CA20 PO; -KLOR10TA76 PO; -KLOR20TA42 PO; +POTA-136 PO; +POTA-141 PO
[2021-03-20 11:12] LABS: HEMOGLOBIN 13.2 g/dl (13.5-17.5); MEAN CORPUSCULAR HEMOGLOBIN 28.6 pg (27.0-33.0); MEAN CORPUSCULAR HGB CONC 32.2 g/dl (32.0-36.5); MEAN CORPUSCULAR VOLUME 88.9 fl (80.0-96.0); PLATELET COUNT, AUTOMATED 166 10^3/uL (150-450); RED BLOOD COUNT 4.61 10^6/uL (4.30-6.10); WHITE BLOOD COUNT 9.3 10^3/uL (4.0-10.0)
[2021-03-20 11:28] LABS: BLOOD UREA NITROGEN 26 MG/DL (7-18); CALCIUM LEVEL 8.6 MG/DL (8.8-10.2); CARBON DIOXIDE LEVEL 28 MEQ/L (21-32); CHLORIDE LEVEL 105 MEQ/L (98-107); CREATININE FOR GFR 1.04 MG/DL (0.70-1.30); GLOMERULAR FILTRATION RATE > 60.0 (>35); GLUCOSE, FASTING 224 MG/DL (70-100); POTASSIUM SERUM 4.1 MEQ/L (3.5-5.1); SODIUM LEVEL 140 MEQ/L (136-145)
== END ==
PROVIDERS: ATTEND Internal Medicine
DX: E11.9 Type 2 diabetes mellitus without complications (principal)

== ENCOUNTER → 2021-09-10 | Outpatient (REF) | payer MEDICARE ==
[2021-09-10 11:42] LABS: HEMATOCRIT 43.1 % (42.0-52.0); HEMOGLOBIN 14.1 g/dl (13.5-17.5); MEAN CORPUSCULAR HEMOGLOBIN 29.3 pg (27.0-33.0); MEAN CORPUSCULAR HGB CONC 32.7 g/dl (32.0-36.5); MEAN CORPUSCULAR VOLUME 89.6 fl (80.0-96.0); PLATELET COUNT, AUTOMATED 149 10^3/uL (150-450); RED BLOOD COUNT 4.81 10^6/uL (4.30-6.10); WHITE BLOOD COUNT 8.8 10^3/uL (4.0-10.0)
[2021-09-10 11:59] LABS: HEMOGLOBIN A1c 8.6 %
[2021-09-10 12:12] LABS: BLOOD UREA NITROGEN 25 MG/DL (7-18); CALCIUM LEVEL 8.9 MG/DL (8.8-10.2); CARBON DIOXIDE LEVEL 29 MEQ/L (21-32); CHLORIDE LEVEL 104 MEQ/L (98-107); CREATININE FOR GFR 1.03 MG/DL (0.70-1.30); GLOMERULAR FILTRATION RATE > 60.0 (>35); GLUCOSE, FASTING 133 MG/DL (70-100); POTASSIUM SERUM 4.1 MEQ/L (3.5-5.1); SODIUM LEVEL 140 MEQ/L (136-145)
== END ==
PROVIDERS: ATTEND Internal Medicine
DX: E11.9 Type 2 diabetes mellitus without complications (principal)

== ENCOUNTER → 2021-09-19 | Outpatient (REF) | payer MEDICARE ==
[2021-09-19 15:25] LABS: BASO # 0.1 10^3/uL (0.0-0.2); BASO % 0.5 % (0.0-1.0); EOS # 0.8 10^3/uL (0.0-0.5); EOS % 8.2 % (0.0-3.0); HEMATOCRIT 39.9 % (42.0-52.0); HEMOGLOBIN 12.9 g/dl (13.5-17.5); LYMPH % 21.4 % (24.0-44.0); MEAN CORPUSCULAR HEMOGLOBIN 28.9 pg (27.0-33.0); MEAN CORPUSCULAR HGB CONC 32.3 g/dl (32.0-36.5); MEAN CORPUSCULAR VOLUME 89.5 fl (80.0-96.0); MONO # 0.8 10^3/uL (0.0-0.8); MONO % 9.1 % (2.0-8.0); NEUTROPHILS # 5.5 10^3/uL (1.5-8.5); NEUTROPHILS % 60.5 % (36.0-66.0); PLATELET COUNT, AUTOMATED 155 10^3/uL (150-450); RED BLOOD COUNT 4.46 10^6/uL (4.30-6.10); WHITE BLOOD COUNT 9.2 10^3/uL (4.0-10.0)
[2021-09-19 15:52] LABS: ERYTHROCYTE SEDIMENTATION RATE 9 mm/hr (0-20)
[2021-09-19 15:59] LABS: BLOOD UREA NITROGEN 23 MG/DL (7-18); CALCIUM LEVEL 8.2 MG/DL (8.8-10.2); CARBON DIOXIDE LEVEL 26 MEQ/L (21-32); CHLORIDE LEVEL 106 MEQ/L (98-107); CREATININE FOR GFR 0.97 MG/DL (0.70-1.30); GLOMERULAR FILTRATION RATE > 60.0 (>35); GLUCOSE, FASTING 146 MG/DL (70-100); POTASSIUM SERUM 4.3 MEQ/L (3.5-5.1); SODIUM LEVEL 140 MEQ/L (136-145); URIC ACID 5.3 MG/DL (3.5-7.2)
== END ==
PROVIDERS: ATTEND Physician Assistant
DX: M77.31 Calcaneal spur, right foot (principal); M25.571 Pain in right ankle and joints of right foot

== ENCOUNTER → 2021-09-26 | Outpatient (CLI) | payer MEDICARE | PROVIDERS: ATTEND Internal Medicine | DX: R05.9 Cough, unspecified (principal); K59.00 Constipation, unspecified ==

== ENCOUNTER → 2021-09-26 | Outpatient (REF) | payer MEDICARE ==
[2021-09-26 12:05] LABS: HEMATOCRIT 41.7 % (42.0-52.0); MEAN CORPUSCULAR HEMOGLOBIN 29.7 pg (27.0-33.0); MEAN CORPUSCULAR HGB CONC 33.6 g/dl (32.0-36.5); MEAN CORPUSCULAR VOLUME 88.5 fl (80.0-96.0); PLATELET COUNT, AUTOMATED 167 10^3/uL (150-450); RED BLOOD COUNT 4.71 10^6/uL (4.30-6.10); WHITE BLOOD COUNT 11.7 10^3/uL (4.0-10.0)
[2021-09-26 12:32] LABS: CALCIUM LEVEL 8.7 MG/DL (8.8-10.2); CREATININE FOR GFR 1.33 MG/DL (0.70-1.30); GLOMERULAR FILTRATION RATE 54.3 (>35); POTASSIUM SERUM 3.9 MEQ/L (3.5-5.1)
== END ==
PROVIDERS: ATTEND Physician Assistant
DX: R05.9 Cough, unspecified (principal); K59.00 Constipation, unspecified; Z79.899 Other long term (current) drug therapy

== ENCOUNTER → 2021-10-06 | Outpatient (REF) | payer MEDICARE ==
[2021-10-06 18:02] LABS: HEMATOCRIT 45.6 % (42.0-52.0); HEMOGLOBIN 14.6 g/dl (13.5-17.5); MEAN CORPUSCULAR HEMOGLOBIN 28.9 pg (27.0-33.0); MEAN CORPUSCULAR VOLUME 90.3 fl (80.0-96.0); PLATELET COUNT, AUTOMATED 168 10^3/uL (150-450); RED BLOOD COUNT 5.05 10^6/uL (4.30-6.10); WHITE BLOOD COUNT 10.3 10^3/uL (4.0-10.0)
[2021-10-06 18:58] LABS: BLOOD UREA NITROGEN 25 MG/DL (7-18); CALCIUM LEVEL 8.7 MG/DL (8.8-10.2); CARBON DIOXIDE LEVEL 22 MEQ/L (21-32); CHLORIDE LEVEL 106 MEQ/L (98-107); CREATININE FOR GFR 1.15 MG/DL (0.70-1.30); GLOMERULAR FILTRATION RATE > 60.0 (>35); GLUCOSE, FASTING 220 MG/DL (70-100); POTASSIUM SERUM 4.5 MEQ/L (3.5-5.1); SODIUM LEVEL 140 MEQ/L (136-145)
== END ==
PROVIDERS: ATTEND Physician Assistant
DX: R11.10 Vomiting, unspecified (principal)

== ENCOUNTER → 2022-03-11 | Outpatient (REF) | payer MEDICARE ==
[~2022-03-11] MED LIST changes: -RIFA300C3 PO; +RIFA300C8 PO
[2022-03-11 13:15] LABS: HEMATOCRIT 41.9 % (42.0-52.0); HEMOGLOBIN 13.9 g/dl (13.5-17.5); MEAN CORPUSCULAR HEMOGLOBIN 30.1 pg (27.0-33.0); MEAN CORPUSCULAR HGB CONC 33.2 g/dl (32.0-36.5); MEAN CORPUSCULAR VOLUME 90.7 fl (80.0-96.0); PLATELET COUNT, AUTOMATED 142 10^3/uL (150-450); RED BLOOD COUNT 4.62 10^6/uL (4.30-6.10); WHITE BLOOD COUNT 7.4 10^3/uL (4.0-10.0)
[2022-03-11 15:03] LABS: CALCIUM LEVEL 8.5 MG/DL (8.8-10.2); CREATININE FOR GFR 1.29 MG/DL (0.70-1.30); GLOMERULAR FILTRATION RATE 56.1 (>35)
[2022-03-11 17:10] LABS: HEMOGLOBIN A1c 8.3 %
== END ==
PROVIDERS: ATTEND Physician Assistant
DX: E11.9 Type 2 diabetes mellitus without complications (principal)

== ENCOUNTER → 2022-09-09 | Outpatient (REF) | payer MEDICARE ==
[2022-09-09 11:23] LABS: HEMATOCRIT 42.3 % (42.0-52.0); HEMOGLOBIN 13.6 g/dl (13.5-17.5); MEAN CORPUSCULAR HEMOGLOBIN 31.3 pg (27.0-33.0); MEAN CORPUSCULAR HGB CONC 32.2 g/dl (32.0-36.5); MEAN CORPUSCULAR VOLUME 97.2 fl (80.0-96.0); PLATELET COUNT, AUTOMATED 143 10^3/uL (150-450); RED BLOOD COUNT 4.35 10^6/uL (4.30-6.10); WHITE BLOOD COUNT 6.9 10^3/uL (4.0-10.0)
[2022-09-09 11:53] LABS: BLOOD UREA NITROGEN 20 MG/DL (9-23); CALCIUM LEVEL 8.1 MG/DL (8.3-10.6); CARBON DIOXIDE LEVEL 26 MMOL/L (20-31); CHLORIDE LEVEL 99 MMOL/L (98-107); CREATININE FOR GFR 0.88 MG/DL (0.70-1.30); GLOMERULAR FILTRATION RATE > 60.0 (>35); GLUCOSE, FASTING 283 MG/DL (74-106); POTASSIUM SERUM 4.3 MMOL/L (3.5-5.1); SODIUM LEVEL 137 MMOL/L (136-145)
[2022-09-09 11:55] LABS: HEMOGLOBIN A1c 7.7 % (4.0-6.0)
== END ==
PROVIDERS: ATTEND Internal Medicine
DX: E11.9 Type 2 diabetes mellitus without complications (principal)

== ENCOUNTER → 2022-11-09 | Outpatient (REF) | payer MEDICARE ==
[~2022-11-09] MED LIST changes: +INSU100I6 SC; -LEVE1INJ5 SC
[2022-11-09 15:51] LABS: HEMATOCRIT 42.4 % (42.0-52.0); HEMOGLOBIN 13.7 g/dl (13.5-17.5); MEAN CORPUSCULAR HEMOGLOBIN 30.1 pg (27.0-33.0); MEAN CORPUSCULAR HGB CONC 32.3 g/dl (32.0-36.5); MEAN CORPUSCULAR VOLUME 93.2 fl (80.0-96.0); PLATELET COUNT, AUTOMATED 159 10^3/uL (150-450); RED BLOOD COUNT 4.55 10^6/uL (4.30-6.10); WHITE BLOOD COUNT 7.3 10^3/uL (4.0-10.0)
[2022-11-09 16:15] LABS: APPEARANCE, URINE CLEAR (CLEAR); BACTERIA, URINE AUTO 1+ (NEGATIVE); BILIRUBIN, URINE AUTO NEGATIVE (NEGATIVE); BLOOD, URINE BLOOD NEGATIVE (NEGATIVE); COLOR, URINE AMBER (YELLOW); GLUCOSE, URINE (UA) AUTO NEGATIVE (NEGATIVE); KETONE, URINE AUTO TRACE mg/dL (NEGATIVE); LEUKOCYTE ESTERASE, URINE AUTO NEGATIVE (NEGATIVE); MUCUS, URINE SMALL (NEGATIVE); NITRITE, URINE AUTO NEGATIVE (NEGATIVE); PROTEIN, URINE AUTO NEGATIVE (NEGATIVE); RBC, URINE AUTO 1 /HPF (0-3); SPECIFIC GRAVITY URINE AUTO 1.023 (1.002-1.035); SQUAMOUS EPITHELIAL CELL UR AU 1 /HPF (0-6); WBC, URINE AUTO 2 /HPF (0-3)
[2022-11-09 16:17] LABS: BLOOD UREA NITROGEN 33 MG/DL (9-23); CALCIUM LEVEL 8.2 MG/DL (8.3-10.6); CARBON DIOXIDE LEVEL 26 MMOL/L (20-31); CHLORIDE LEVEL 104 MMOL/L (98-107); CREATININE FOR GFR 1.01 MG/DL (0.70-1.30); GLOMERULAR FILTRATION RATE > 60.0 (>35); GLUCOSE, FASTING 134 MG/DL (74-106); POTASSIUM SERUM 4.2 MMOL/L (3.5-5.1); SODIUM LEVEL 141 MMOL/L (136-145)
== END ==
PROVIDERS: ATTEND Physician Assistant
DX: R41.82 Altered mental status, unspecified (principal); R53.83 Other fatigue

== ENCOUNTER → 2022-11-16 | Outpatient (REF) | payer MEDICARE ==
[2022-11-16 12:17] LABS: HEMATOCRIT 47.4 % (42.0-52.0); HEMOGLOBIN 15.3 g/dl (13.5-17.5); MEAN CORPUSCULAR HEMOGLOBIN 30.5 pg (27.0-33.0); MEAN CORPUSCULAR HGB CONC 32.3 g/dl (32.0-36.5); MEAN CORPUSCULAR VOLUME 94.6 fl (80.0-96.0); PLATELET COUNT, AUTOMATED 186 10^3/uL (150-450); RED BLOOD COUNT 5.01 10^6/uL (4.30-6.10)
[2022-11-16 12:25] LABS: BLOOD UREA NITROGEN 33 MG/DL (9-23); CALCIUM LEVEL 8.6 MG/DL (8.3-10.6); CARBON DIOXIDE LEVEL 28 MMOL/L (20-31); CHLORIDE LEVEL 103 MMOL/L (98-107); CREATININE FOR GFR 1.14 MG/DL (0.70-1.30); GLOMERULAR FILTRATION RATE > 60.0 (>35); GLUCOSE, FASTING 218 MG/DL (74-106); SODIUM LEVEL 140 MMOL/L (136-145)
== END ==
PROVIDERS: ATTEND Physician Assistant
DX: K04.7 Periapical abscess without sinus (principal)

== ENCOUNTER 2022-11-23 08:09 | Inpatient (IN) | payer MEDICARE ==
[~2022-11-23] VITALS: Ht 175.3 cm; Wt 68.2 kg
[2022-11-23] MEDS ORDERED: NS 500 ML IV ONE (08:35)
[2022-11-23] MEDS: CARVedilol 12.5 MG TAB PO SCH ×2 (09:00→20:17)
[2022-11-23] MEDS: LACTULOSE 20GM/30ML SYRUP UDC PO SCH ×3 (09:00→20:17)
[2022-11-23] MEDS: SENOKOT S TAB PO SCH ×2 (09:00→20:18)
[2022-11-23] MEDS: lisinopriL 40MG TAB PO SCH (09:00)
[2022-11-23] MEDS: cloNIDine 0.1MG TABLET PO SCH ×2 (09:00→20:16)
[2022-11-23 09:43] LABS: BASO # 0.1 10^3/uL (0.0-0.2); BASO % 0.3 % (0.0-1.0); HEMATOCRIT 41.2 % (42.0-52.0); HEMOGLOBIN 13.5 g/dl (13.5-17.5); LYMPH % 4.9 % (24.0-44.0); MEAN CORPUSCULAR HEMOGLOBIN 30.1 pg (27.0-33.0); MEAN CORPUSCULAR HGB CONC 32.8 g/dl (32.0-36.5); MONO % 7.7 % (2.0-8.0); NEUTROPHILS # 18.3 10^3/uL (1.5-8.5); NEUTROPHILS % 86.5 % (36.0-66.0); PLATELET COUNT, AUTOMATED 184 10^3/uL (150-450); RED BLOOD COUNT 4.48 10^6/uL (4.30-6.10); WHITE BLOOD COUNT 21.1 10^3/uL (4.0-10.0)
[2022-11-23 09:55] LABS: INR 1.46
[2022-11-23 09:56] LABS: MONO # 1.6 10^3/uL (0.0-0.8); PARTIAL THROMBOPLASTIN TIME 31.3 SECONDS (24.8-34.2)
[2022-11-23] MEDS ORDERED: LIDOCAINE 2% 5ML JELLY UROJET TOP ONE (10:00)
[2022-11-23] MEDS ORDERED: PIPERACILLIN/TAZOBACTAM SOD 4.5 GM in D5W MINI-BAG PLUS 50 ML IV ONE (10:05)
[2022-11-23 10:09] LABS: CPK CREATINE PHOSPHOKINASE 95 U/L (46-171)
[2022-11-23 10:13] LABS: ALBUMIN 3.2 G/DL (3.2-5.2); ALKALINE PHOSPHATASE 74 U/L (46-116); ALT/SGPT 14 U/L (7.0-40); AST/SGOT 17 U/L (<34); BILIRUBIN,DIRECT 0.3 MG/DL (<0.4); BILIRUBIN,TOTAL 0.9 MG/DL (0.3-1.2); BLOOD UREA NITROGEN 25 MG/DL (9-23); CARBON DIOXIDE LEVEL 24 MMOL/L (20-31); CHLORIDE LEVEL 100 MMOL/L (98-107); CK-MB VALUE MASS 1.7 NG/ML (<3.6); CREATININE FOR GFR 1.11 MG/DL (0.70-1.30); GLOMERULAR FILTRATION RATE > 60.0 (>35); GLUCOSE, FASTING 250 MG/DL (74-106); MB/CK RELATIVE INDEX 1.78 (< OR =4); POTASSIUM SERUM 4.4 MMOL/L (3.5-5.1); SODIUM LEVEL 136 MMOL/L (136-145)
[2022-11-23 10:26] LABS: RSV AMPLIFICATION NEGATIVE (NEGATIVE)
[2022-11-23] MEDS ORDERED: MORPHINE 2 MG/ML 1ML VIAL IV ONE (10:40)
[2022-11-23] MEDS ORDERED: DEXTROSE 50% 50ML SYRINGE IV PRN (11:05)
[2022-11-23] MEDS ORDERED: ACETAMINOPHEN TAB 650MG DOSE (2X325MG) PO PRN ×2 (11:05)
[2022-11-23] MEDS ORDERED: GLUCOSE 4GM CHEW TABLET PO PRN (11:05)
[2022-11-23] MEDS ORDERED: GLUCAGON INJ 1MG VIAL SC PRN (11:05)
[2022-11-23] MEDS ORDERED: MORPHINE 2 MG/ML 1ML VIAL IV PRN (11:05)
[2022-11-23] MEDS ORDERED: ELIQ5TAB PO (11:33)
[2022-11-23] MEDS ORDERED: CHLO0.124 SSP (11:33)
[2022-11-23] MEDS ORDERED: SERT50TA29 PO (11:33)
[2022-11-23] MEDS ORDERED: AMOX875T PO (11:33)
[2022-11-23] MEDS ORDERED: HYDR-3490 PO (11:33)
[2022-11-23] MEDS ORDERED: DOCU8.6T PO (11:33)
[2022-11-23] MEDS ORDERED: CARV12.5 PO (11:33)
[2022-11-23] MEDS ORDERED: CLON-412 PO (11:33)
[2022-11-23] MEDS ORDERED: LACT20EL PO (11:33)
[2022-11-23] MEDS ORDERED: LISI40TA4 PO (11:33)
[2022-11-23] MEDS ORDERED: ANBE20GE MT (11:38)
[2022-11-23] MEDS ORDERED: MENT250L TOP (11:38)
[2022-11-23] MEDS ORDERED: GLUC1KIT IM (11:38)
[2022-11-23] MEDS ORDERED: BENZOCAINE 20% GEL 9GM TUBE (ANBESOL MAX STRENGTH) MT PRN (11:40)
[2022-11-23] MEDS ORDERED: HOME MED LIST COMPLETE! XX SCH (11:40)
[2022-11-23] MEDS: INSULIN LISPRO (NovoLOG) PER UNIT SC SCH ×3 (12:00→20:18)
[2022-11-23] MEDS ORDERED: INSULIN LISPRO (NovoLOG) PER UNIT SC SCH ×2 (12:00→21:00)
[2022-11-23 12:30] VITALS: BP 105/69
[2022-11-23] MEDS: CHLORHEXIDINE GLUCONATE 0.12 % 15ML UDC (PERIDEX ORAL RINSE) SSP SCH ×2 (13:00→17:26)
[2022-11-23] MEDS: NS 1,000 ML IV SCH (13:37)
[2022-11-23 20:00] VITALS: BP 105/69
[2022-11-23] MEDS: SERTRALINE HCL 50 MG TAB PO SCH (20:18)
[2022-11-23] MEDS: ATORVASTATIN 10 MG TAB PO SCH (20:18)
[2022-11-23] MEDS ORDERED: TAMSULOSIN 0.4 MG CAP PO SCH (21:00)
[2022-11-23] MEDS ORDERED: propofoL 200 MG/20 ML VIAL As Ordered ONE (21:46)
[2022-11-23] MEDS ORDERED: LIDOCAINE 2% 100MG/5ML SDV (FOR ANES.) As Ordered ONE (21:46)
[2022-11-23] MEDS ORDERED: PHENYLephrine 500MCG 5ML (100MCG/ML) SYRINGE As Ordered ONE (21:46)
[2022-11-23] MEDS ORDERED: ePHEDrine SULFATE 25 MG/5 ML(5MG/ML) SYRINGE As Ordered ONE (21:46)
[2022-11-23] MEDS ORDERED: ONDANSETRON 4MG 2ML VIAL As Ordered ONE (21:47)
[2022-11-23] MEDS ORDERED: ceFAZolin 2 GM/D5W 50 ML IV BAG As Ordered ONE (22:14)
[2022-11-23] MEDS ORDERED: LR 1,000 ML IV SCH (22:25)
[2022-11-23] MEDS ORDERED: ONDANSETRON 4MG 2ML VIAL IV PRN (22:25)
[2022-11-23] MEDS ORDERED: ACETAMINOPHEN 1000MG 100ML IV BAG As Ordered ONE (22:31)
[2022-11-23] MEDS ORDERED: KETOROLAC 60MG 2ML VIAL As Ordered ONE (22:32)
[2022-11-23] MEDS: fentaNYL 100 MCG/2 ML INJECTION IV PRN ×2 (23:08→23:45)
[2022-11-23 23:30] VITALS: BP 111/72
[2022-11-23 23:56] VITALS: BP 107/72
[2022-11-24] VITALS (13 sets, daily range): BP systolic 70–148; BP diastolic 54–80
[2022-11-24] MEDS: CARVedilol 12.5 MG TAB PO SCH (04:58)
[2022-11-24] MEDS: ceFAZolin SOD 2 GM in IV 1 EA IV SCH ×3 (06:17→22:16)
[2022-11-24] MEDS: NS 1,000 ML IV SCH ×2 (06:20→18:28)
[2022-11-24 07:43] LABS: HEMATOCRIT 27.2 % (42.0-52.0); MEAN CORPUSCULAR HEMOGLOBIN 31.2 pg (27.0-33.0); MEAN CORPUSCULAR HGB CONC 33.8 g/dl (32.0-36.5); MEAN CORPUSCULAR VOLUME 92.2 fl (80.0-96.0); PLATELET COUNT, AUTOMATED 132 10^3/uL (150-450); RED BLOOD COUNT 2.95 10^6/uL (4.30-6.10); WHITE BLOOD COUNT 15.2 10^3/uL (4.0-10.0)
[2022-11-24 07:47] LABS: HEMOGLOBIN 9.2 g/dl (13.5-17.5)
[2022-11-24] MEDS ORDERED: FLEET ENEMA PR PRN (08:15)
[2022-11-24] MEDS ORDERED: MOM 30ML SUSPENSION UDC PO PRN (08:15)
[2022-11-24] MEDS: CHLORHEXIDINE GLUCONATE 0.12 % 15ML UDC (PERIDEX ORAL RINSE) SSP SCH ×3 (08:30→18:06)
[2022-11-24 08:33] LABS: ALBUMIN 2.4 G/DL (3.2-5.2); BILIRUBIN,TOTAL 0.4 MG/DL (0.3-1.2); CALCIUM LEVEL 7.7 MG/DL (8.3-10.6); CREATININE FOR GFR 1.33 MG/DL (0.70-1.30); GLOMERULAR FILTRATION RATE 54.1 (>35); MAGNESIUM LEVEL 1.6 MG/DL (1.8-2.4); POTASSIUM SERUM 5.1 MMOL/L (3.5-5.1); TOTAL PROTEIN 4.6 G/DL (5.7-8.2)
[2022-11-24] MEDS: LACTULOSE 20GM/30ML SYRUP UDC PO SCH ×3 (09:00→20:56)
[2022-11-24] MEDS: MIRALAX *UNIT DOSE* 17GM PACKET PO SCH (09:00)
[2022-11-24] MEDS: DOCUSATE SODIUM 100MG CAPSULE PO SCH ×2 (09:00→20:57)
[2022-11-24] MEDS: cloNIDine 0.1MG TABLET PO SCH (09:00)
[2022-11-24] MEDS: lisinopriL 40MG TAB PO SCH (09:00)
[2022-11-24] MEDS: POLYVINYL ALCOHOL OPHTH SOLN 15ML (LIQUITEARS) OU SCH ×2 (09:00→20:56)
[2022-11-24] MEDS: INSULIN LISPRO (NovoLOG) PER UNIT SC SCH ×4 (09:12→20:18)
[2022-11-24] MEDS ORDERED: NS 1,000 ML IV ONE ×2 (09:20→20:00)
[2022-11-24] MEDS ORDERED: PERCOCET 5MG/325MG TAB PO PRN (09:20)
[2022-11-24 09:53] LABS: ABG BASE EXCESS -4.9 (-2.0-2.0); ABG HCO3 19.8 MEQ/L (22.0-26.0); ABG O2 SATURATION 95.9 % (95.0-99.0); ABG PARTIAL PRESSURE CO2 34.9 mmHg (35.0-45.0); ABG PARTIAL PRESSURE O2 82.5 mmHg (75.0-100.0); ABG STANDARD HCO3 20.4 MEQ/L (22.0-26.0); ABG TOTAL CO2 20.9 MEQ/L (23.0-31.0); ABG pH (ARTERIAL) 7.372 UNITS (7.350-7.450)
[2022-11-24 14:19] LABS: HEMATOCRIT 25.6 % (42.0-52.0); HEMOGLOBIN 8.4 g/dl (13.5-17.5); MEAN CORPUSCULAR HEMOGLOBIN 30.4 pg (27.0-33.0); MEAN CORPUSCULAR HGB CONC 32.8 g/dl (32.0-36.5); MEAN CORPUSCULAR VOLUME 92.8 fl (80.0-96.0); PLATELET COUNT, AUTOMATED 138 10^3/uL (150-450); RED BLOOD COUNT 2.76 10^6/uL (4.30-6.10); WHITE BLOOD COUNT 16.5 10^3/uL (4.0-10.0)
[2022-11-24] MEDS: PERCOCET 5MG/325MG TAB PO PRN (17:00)
[2022-11-24] MEDS ORDERED: NS 500 ML IV ONE (20:00)
[2022-11-24] MEDS: PANTOPRAZOLE 40MG VIAL IV SCH (20:46)
[2022-11-24] MEDS: SERTRALINE HCL 50 MG TAB PO SCH (20:57)
[2022-11-24] MEDS: SENNA 8.6 MG TAB (SENOKOT) PO SCH (20:57)
[2022-11-24] MEDS: ATORVASTATIN 10 MG TAB PO SCH (20:57)
[2022-11-24] MEDS: LEVEMIR (INSULIN DETEMIR) 1 UNITS/0.01ML SC SCH (20:59)
[2022-11-25] VITALS (8 sets, daily range): BP systolic 100–153; BP diastolic 60–90
[2022-11-25] MEDS: PERCOCET 5MG/325MG TAB PO PRN ×3 (01:40→23:23)
[2022-11-25] MEDS: NS 1,000 ML IV SCH ×4 (03:03→23:26)
[2022-11-25 06:13] LABS: HEMATOCRIT 30.3 % (42.0-52.0); HEMOGLOBIN 10.1 g/dl (13.5-17.5); MEAN CORPUSCULAR HEMOGLOBIN 29.8 pg (27.0-33.0); MEAN CORPUSCULAR HGB CONC 33.3 g/dl (32.0-36.5); MEAN CORPUSCULAR VOLUME 89.4 fl (80.0-96.0); PLATELET COUNT, AUTOMATED 112 10^3/uL (150-450); RED BLOOD COUNT 3.39 10^6/uL (4.30-6.10); WHITE BLOOD COUNT 16.5 10^3/uL (4.0-10.0)
[2022-11-25 06:48] LABS: ALBUMIN 2.3 G/DL (3.2-5.2); ALKALINE PHOSPHATASE 47 U/L (46-116); ALT/SGPT < 9 U/L (7.0-40); AST/SGOT 22 U/L (<34); BILIRUBIN,TOTAL 0.8 MG/DL (0.3-1.2); BLOOD UREA NITROGEN 35 MG/DL (9-23); CALCIUM LEVEL 7.2 MG/DL (8.3-10.6); CARBON DIOXIDE LEVEL 24 MMOL/L (20-31); CHLORIDE LEVEL 110 MMOL/L (98-107); CREATININE FOR GFR 1.33 MG/DL (0.70-1.30); GLOMERULAR FILTRATION RATE 54.1 (>35); GLUCOSE, FASTING 162 MG/DL (74-106); POTASSIUM SERUM 3.8 MMOL/L (3.5-5.1); SODIUM LEVEL 143 MMOL/L (136-145); TOTAL PROTEIN 4.4 G/DL (5.7-8.2)
[2022-11-25] MEDS: POLYVINYL ALCOHOL OPHTH SOLN 15ML (LIQUITEARS) OU SCH ×3 (08:27→22:22)
[2022-11-25] MEDS: LACTULOSE 20GM/30ML SYRUP UDC PO SCH ×3 (08:27→21:51)
[2022-11-25] MEDS: DOCUSATE SODIUM 100MG CAPSULE PO SCH ×2 (08:27→21:51)
[2022-11-25] MEDS: MIRALAX *UNIT DOSE* 17GM PACKET PO SCH (08:27)
[2022-11-25] MEDS: INSULIN LISPRO (NovoLOG) PER UNIT SC SCH ×4 (08:29→21:00)
[2022-11-25] MEDS ORDERED: BISACODYL 10MG SUPP PR SCH (09:00)
[2022-11-25] MEDS: CHLORHEXIDINE GLUCONATE 0.12 % 15ML UDC (PERIDEX ORAL RINSE) SSP SCH ×3 (09:31→17:45)
[2022-11-25] MEDS: CARVedilol 12.5 MG TAB PO SCH ×2 (10:51→21:54)
[2022-11-25] MEDS: SENNA 8.6 MG TAB (SENOKOT) PO SCH (21:51)
[2022-11-25] MEDS: SERTRALINE HCL 50 MG TAB PO SCH (21:51)
[2022-11-25] MEDS: ATORVASTATIN 10 MG TAB PO SCH (21:52)
[2022-11-25] MEDS: PANTOPRAZOLE 40MG VIAL IV SCH (21:52)
[2022-11-25] MEDS: LEVEMIR (INSULIN DETEMIR) 1 UNITS/0.01ML SC SCH (21:52)
[2022-11-25] MEDS: DOCUSATE SOD LIQ 100MG/10ML UDC PO SCH (22:22)
[2022-11-25 23:19] LABS: VENOUS BASE EXCESS -4.6 (-2.0-2.0); VENOUS O2 SATURATION 97.1 % (60.0-80.0); VENOUS PARTIAL PRESSURE CO2 41.2 mmHg (38.0-50.0); VENOUS PARTIAL PRESSURE O2 102.1 mmHg (30.0-50.0); VENOUS PH 7.326 UNITS (7.330-7.430); VENOUS STANDARD HCO3 20.6 MEQ/L; VENOUS TOTAL CO2 22.3 MEQ/L (24.0-28.0)
[2022-11-25 23:47] LABS: BLOOD UREA NITROGEN 26 MG/DL (9-23); CALCIUM LEVEL 6.9 MG/DL (8.3-10.6); CARBON DIOXIDE LEVEL 24 MMOL/L (20-31); CHLORIDE LEVEL 113 MMOL/L (98-107); CREATININE FOR GFR 0.91 MG/DL (0.70-1.30); GLOMERULAR FILTRATION RATE > 60.0 (>35); GLUCOSE, FASTING 155 MG/DL (74-106); POTASSIUM SERUM 3.6 MMOL/L (3.5-5.1); SODIUM LEVEL 143 MMOL/L (136-145)
[2022-11-26 06:37] VITALS: BP 136/86
[2022-11-26 06:46] LABS: HEMATOCRIT 29.6 % (42.0-52.0); MEAN CORPUSCULAR HEMOGLOBIN 30.4 pg (27.0-33.0); MEAN CORPUSCULAR HGB CONC 33.8 g/dl (32.0-36.5); PLATELET COUNT, AUTOMATED 111 10^3/uL (150-450); RED BLOOD COUNT 3.29 10^6/uL (4.30-6.10); WHITE BLOOD COUNT 11.9 10^3/uL (4.0-10.0)
[2022-11-26 07:12] LABS: ALBUMIN 2.2 G/DL (3.2-5.2); ALKALINE PHOSPHATASE 49 U/L (46-116); ALT/SGPT < 9 U/L (7.0-40); AST/SGOT 23 U/L (<34); BILIRUBIN,TOTAL 0.5 MG/DL (0.3-1.2); BLOOD UREA NITROGEN 23 MG/DL (9-23); CALCIUM LEVEL 7.4 MG/DL (8.3-10.6); CARBON DIOXIDE LEVEL 26 MMOL/L (20-31); CHLORIDE LEVEL 113 MMOL/L (98-107); CREATININE FOR GFR 0.84 MG/DL (0.70-1.30); GLOMERULAR FILTRATION RATE > 60.0 (>35); GLUCOSE, FASTING 101 MG/DL (74-106); POTASSIUM SERUM 3.7 MMOL/L (3.5-5.1); SODIUM LEVEL 145 MMOL/L (136-145); TOTAL PROTEIN 4.6 G/DL (5.7-8.2)
[2022-11-26] MEDS: INSULIN LISPRO (NovoLOG) PER UNIT SC SCH ×2 (07:30→11:47)
[2022-11-26 07:39] VITALS: BP 124/71
[2022-11-26] MEDS ORDERED: DOCU10ELUD PO (07:52)
[2022-11-26] MEDS ORDERED: SENN18TA PO (07:52)
[2022-11-26] MEDS ORDERED: PERCOCET PO (07:52)
[2022-11-26 09:07] VITALS: BP 124/71
[2022-11-26] MEDS: LACTULOSE 20GM/30ML SYRUP UDC PO SCH (09:07)
[2022-11-26] MEDS: CARVedilol 12.5 MG TAB PO SCH (09:07)
[2022-11-26] MEDS: DOCUSATE SOD LIQ 100MG/10ML UDC PO SCH (09:07)
[2022-11-26] MEDS: MIRALAX *UNIT DOSE* 17GM PACKET PO SCH (09:07)
[2022-11-26] MEDS: POLYVINYL ALCOHOL OPHTH SOLN 15ML (LIQUITEARS) OU SCH (09:08)
[2022-11-26] MEDS: CHLORHEXIDINE GLUCONATE 0.12 % 15ML UDC (PERIDEX ORAL RINSE) SSP SCH (09:08)
[2022-11-26] MEDS ORDERED: TAMSULOSIN 0.4 MG CAP PO SCH (21:00)
== END 2022-11-26 12:23 | DRG 481 ==
LOC: EDBD 08:09 → M ED 08:09 → M ED INP 11:03 → ENRESERV 11:38 → M MSPAV 12:38
PROVIDERS: ADMIT Family Medicine; ATTEND Internal Medicine
PROC: 0QS606Z Reposition Right Upper Femur with Intramedullary Internal Fixation Device, Open Approach (ICD-10-PCS; principal; 2022-11-23 16:00)
PROC: 30233N1 Transfusion of Nonautologous Red Blood Cells into Peripheral Vein, Percutaneous Approach (ICD-10-PCS; 2022-11-24)
DX: S72.141A Displaced intertrochanteric fracture of right femur, initial encounter for closed fracture (principal); I69.351 Hemiplegia and hemiparesis following cerebral infarction affecting right dominant side; D62 Acute posthemorrhagic anemia; N17.9 Acute kidney failure, unspecified; I48.91 Unspecified atrial fibrillation; E11.9 Type 2 diabetes mellitus without complications; R00.0 Tachycardia, unspecified; F41.9 Anxiety disorder, unspecified; N50.89 Other specified disorders of the male genital organs; Z66 Do not resuscitate; I95.9 Hypotension, unspecified; F32.A Depression, unspecified; I10 Essential (primary) hypertension; Y99.8 Other external cause status; W18.30XA Fall on same level, unspecified, initial encounter; Y92.122 Bedroom in nursing home as the place of occurrence of the external cause; E78.5 Hyperlipidemia, unspecified; Y93.89 Activity, other specified; D72.829 Elevated white blood cell count, unspecified; Z79.4 Long term (current) use of insulin; Z79.899 Other long term (current) drug therapy; Z88.5 Allergy status to narcotic agent

== ENCOUNTER → 2022-11-27 | Outpatient (REF) ==
[~2022-11-27] MED LIST changes: +AMOX875T PO; +ANBE20GE MT; +CARV12.5 PO; +CHLO0.124 SSP; +CLON-412 PO; +DOCU10ELUD PO; +DOCU8.6T PO; +GLUC1KIT IM; +HYDR-3490 PO; +LACT20EL PO; +LISI40TA4 PO; +MENT250L TOP; +PERCOCET PO; +SERT50TA29 PO
[2022-11-27 16:30] LABS: HEMATOCRIT 30.3 % (42.0-52.0); HEMOGLOBIN 10.3 g/dl (13.5-17.5); MEAN CORPUSCULAR HEMOGLOBIN 30.9 pg (27.0-33.0); PLATELET COUNT, AUTOMATED 118 10^3/uL (150-450); RED BLOOD COUNT 3.33 10^6/uL (4.30-6.10); WHITE BLOOD COUNT 12.2 10^3/uL (4.0-10.0)
[2022-11-27 17:18] LABS: BLOOD UREA NITROGEN 21 MG/DL (9-23); CALCIUM LEVEL 7.2 MG/DL (8.3-10.6); CARBON DIOXIDE LEVEL 21 MMOL/L (20-31); CHLORIDE LEVEL 108 MMOL/L (98-107); CREATININE FOR GFR 0.76 MG/DL (0.70-1.30); GLOMERULAR FILTRATION RATE > 60.0 (>35); GLUCOSE, FASTING 57 MG/DL (74-106); POTASSIUM SERUM 4.4 MMOL/L (3.5-5.1); SODIUM LEVEL 141 MMOL/L (136-145)
== END ==
PROVIDERS: ATTEND Physician Assistant
DX: R05.9 Cough, unspecified (principal)

== ENCOUNTER → 2022-11-27 | Outpatient (REF) | payer MEDICARE | PROVIDERS: ATTEND Internal Medicine | DX: R05.9 Cough, unspecified (principal) ==

== ENCOUNTER → 2022-12-03 | Outpatient (REF) | payer MEDICARE ==
[2022-12-03 14:40] LABS: HEMATOCRIT 28.6 % (42.0-52.0); HEMOGLOBIN 9.2 g/dl (13.5-17.5); MEAN CORPUSCULAR HEMOGLOBIN 30.7 pg (27.0-33.0); MEAN CORPUSCULAR HGB CONC 32.2 g/dl (32.0-36.5); MEAN CORPUSCULAR VOLUME 95.3 fl (80.0-96.0); PLATELET COUNT, AUTOMATED 226 10^3/uL (150-450); WHITE BLOOD COUNT 15.8 10^3/uL (4.0-10.0)
[2022-12-03 15:08] LABS: BLOOD UREA NITROGEN 21 MG/DL (9-23); CALCIUM LEVEL 7.5 MG/DL (8.3-10.6); CARBON DIOXIDE LEVEL 24 MMOL/L (20-31); CHLORIDE LEVEL 103 MMOL/L (98-107); CREATININE FOR GFR 0.76 MG/DL (0.70-1.30); GLOMERULAR FILTRATION RATE > 60.0 (>35); GLUCOSE, FASTING 346 MG/DL (74-106); POTASSIUM SERUM 4.4 MMOL/L (3.5-5.1); SODIUM LEVEL 135 MMOL/L (136-145)
[2022-12-03 15:10] LABS: THYROID STIMULATING HORMONE 0.876 uIU/ML (0.55-4.78)
== END ==
LOC: M PLAIMG 13:03
PROVIDERS: ATTEND Internal Medicine
DX: I51.7 Cardiomegaly (principal); I77.819 Aortic ectasia, unspecified site